=== PATIENT | male | born 1950 | race Caucasian/White ===

== ENCOUNTER 2016-11-16 09:03 | Outpatient (CLI) | payer MEDICARE, BC | END 2016-11-16 09:04 | disposition home or self-care (01) | DX: H35.60 Retinal hemorrhage, unspecified eye (principal); H53.2 Diplopia ==

== ENCOUNTER 2017-02-05 18:48 | Outpatient (CLI) | payer MEDICARE, BC | END 2017-02-05 18:49 | disposition home or self-care (01) | DX: R73.01 Impaired fasting glucose (principal); I10 Essential (primary) hypertension; E78.5 Hyperlipidemia, unspecified; M35.3 Polymyalgia rheumatica ==

== ENCOUNTER 2017-03-21 15:45 | Outpatient (CLI) | payer MEDICARE, BC | END 2017-03-21 15:46 | disposition home or self-care (01) | LOC: SC 15:45 | PROVIDERS: ATTEND Nurse Practitioner Family | DX: G47.33 Obstructive sleep apnea (adult) (pediatric) (principal) | CPT/HCPCS: 99213; G0463; 99212 ==

== ENCOUNTER 2017-05-21 10:30 | Outpatient (CLI) | payer MEDICARE, BC | END 2017-05-21 10:31 | disposition home or self-care (01) | LOC: SC 10:30 | PROVIDERS: ATTEND Nurse Practitioner Family | DX: G47.33 Obstructive sleep apnea (adult) (pediatric) (principal) | CPT/HCPCS: 99214; G0463; 99212 ==

== ENCOUNTER 2017-07-23 09:43 | Outpatient (CLI) | payer MEDICARE, BC | END 2017-07-23 09:44 | disposition home or self-care (01) | LOC: SC 09:43 | PROVIDERS: ATTEND Nurse Practitioner Family | DX: G47.33 Obstructive sleep apnea (adult) (pediatric) (principal) | CPT/HCPCS: 99214; G0463; 99212 ==

== ENCOUNTER 2017-08-21 16:02 | Outpatient (CLI) | payer MEDICARE, BC ==
[2017-08-21 12:49] LABS: BASOPHILS % (AUTO) 0.6 %; EOSINOPHILS # (AUTO) 0.3 10^3/uL (0.0-0.7); EOSINOPHILS % (AUTO) 3.8 %; HCT - HEMATOCRIT 44.5 % (42.0-52.0); HGB - HEMOGLOBIN 14.7 g/dL (14.0-18.0); LYMPHOCYTES # (AUTO) 1.9 10^3/uL (1.5-3.5); LYMPHOCYTES % (AUTO) 27.2 %; MEAN CORPUSCULAR HEMOGLOBIN 32.7 pg (27.0-31.0); MEAN PLATELET VOLUME 9.4 fL (7.4-11.4); MONOCYTES # (AUTO) 0.6 10^3/uL (0.0-1.0); MONOCYTES % (AUTO) 9.2 %; NEUTROPHILS % (AUTO) 59.2 %; RED BLOOD COUNT 4.49 10^6/uL (4.70-6.10); RED CELL DISTRIBUTION WIDTH 13.8 % (12.0-15.0); UNCORRECTED WHITE BLOOD COUNT 6.8 x10^3/uL; WHITE BLOOD COUNT 6.8 x10^3/uL (4.8-10.8)
[2017-08-21 13:00] LABS: HEMOGLOBIN A1C 0.71 g/dL
[2017-08-21 13:02] LABS: ALBUMIN/GLOBULIN RATIO 1.3 (1.0-2.2); BILIRUBIN,TOTAL 0.5 mg/dL (0.2-1.0); BUN - BLOOD UREA NITROGEN 25 mg/dL (6-20); CALCIUM 9.1 mg/dL (8.5-10.3); CARBON DIOXIDE - CO2 27 mmol/L (21-32); CHLORIDE 106 mmol/L (101-111); CHOL/HDL RATIO 3.2 (<5.0); CHOLESTEROL 174 mg/dL; CREATININE 1.1 mg/dL (0.6-1.2); GFR - MDRD 67 (>89); GLUCOSE 118 mg/dL (70-100); HDL CHOLESTEROL 55 mg/dL; LDL/HDL RATIO 1.7 (<3.6); POTASSIUM 4.5 mmol/L (3.5-5.0); SODIUM 140 mmol/L (135-145); TOTAL PROTEIN 7.1 g/dL (6.7-8.2); TRIGLYCERIDES 127 mg/dL; VLDL CHOLESTEROL 25 mg/dL
== END 2017-08-21 16:03 | disposition home or self-care (01) ==
LOC: LAB.WCP 16:02
PROVIDERS: ATTEND Family Medicine
DX: R73.01 Impaired fasting glucose (principal); E78.5 Hyperlipidemia, unspecified; I10 Essential (primary) hypertension; D69.6 Thrombocytopenia, unspecified
CPT/HCPCS: 36415; 80053; 80061; 83036; 85025

== ENCOUNTER 2018-02-28 08:00 | Outpatient (CLI) | payer MEDICARE, BC ==
[2018-02-28 13:15] LABS: BASOPHILS # (AUTO) 0.1 10^3/uL (0.0-0.1); BASOPHILS % (AUTO) 1.1 %; EOSINOPHILS # (AUTO) 0.2 10^3/uL (0.0-0.7); EOSINOPHILS % (AUTO) 3.8 %; HGB - HEMOGLOBIN 14.7 g/dL (14.0-18.0); LYMPHOCYTES # (AUTO) 1.7 10^3/uL (1.5-3.5); MEAN CORPUSCULAR HEMOGLOBIN 33.3 pg (27.0-31.0); MEAN CORPUSCULAR HGB CONC 33.3 g/dL (32.0-36.0); MEAN CORPUSCULAR VOLUME 100.1 fL (80.0-94.0); MEAN PLATELET VOLUME 9.8 fL (7.4-11.4); MONOCYTES # (AUTO) 0.6 10^3/uL (0.0-1.0); MONOCYTES % (AUTO) 11.2 %; NEUTROPHILS # (AUTO) 2.8 10^3/uL (1.5-6.6); NEUTROPHILS % (AUTO) 51.9 %; PLT - PLATELET COUNT 122 10^3/uL (130-450); RED BLOOD COUNT 4.42 10^6/uL (4.70-6.10); RED CELL DISTRIBUTION WIDTH 13.8 % (12.0-15.0); WHITE BLOOD COUNT 5.3 x10^3/uL (4.8-10.8)
[2018-02-28 13:22] LABS: ALBUMIN/GLOBULIN RATIO 1.3 (1.0-2.2); CALCIUM 9.4 mg/dL (8.5-10.3); CREATININE 1.1 mg/dL (0.6-1.2)
[2018-02-28 13:30] LABS: HB2 TOTAL 16.2 g/dL; HEMOGLOBIN A1C 0.69 g/dL
== END 2018-02-28 08:01 | disposition home or self-care (01) ==
LOC: LAB.WCP 08:00
PROVIDERS: ATTEND Family Medicine
DX: D69.6 Thrombocytopenia, unspecified (principal); R73.01 Impaired fasting glucose; S32.9XXD Fracture of unspecified parts of lumbosacral spine and pelvis, subsequent encounter for fracture with routine healing; E78.5 Hyperlipidemia, unspecified; I10 Essential (primary) hypertension
CPT/HCPCS: 36415; 80053; 83036; 85025

== ENCOUNTER 2018-08-31 12:38 | Outpatient (CLI) | payer MEDICARE, OTHER ==
[2018-08-31] MEDS ORDERED: GADOBUTROL 10 MMOL/10 ML VIAL ONE (12:54)
[2018-08-31] MEDS ORDERED: GADOBUTROL 10 MMOL/10 ML VIAL IVP ONE (13:30)
--- NOTE | 2018-08-31 23:21 | MRI Report ---
Reason: DEGENERATIVE DISC DISEASE, LUMBOSACRAL SPINE Procedure Date: 08/31/2018 Accession Number: [id number] / [id number] Procedure: MRI - Lumbar Spine W/WO CPT Code: FULL RESULT: EXAM: MRI LUMBAR SPINE WITHOUT AND WITH CONTRAST EXAM DATE: 08/31/2018 01:41 PM. CLINICAL HISTORY: Degenerative disk disease, lumbosacral spine. COMPARISONS: Radiographs 07/25/2018. TECHNIQUE: Multiplanar, multisequence T1-weighted and fluid-sensitive sequences of the lumbar spine from T11 to S1 before and after administration of intravenous contrast. Other: None. IV contrast: . FINDINGS: Neurologic Structures: The conus terminates at L1. The conus medullaris and cauda equina are unremarkable. Alignment: No scoliosis or spondylolisthesis. Bone Marrow: Five [id number] lumbar vertebral bodies are present. No gross fracture. Small Schmorl's nodes at multiple levels. Mild diskogenic edema at L3-L4 and to lesser extent L4-L5 and L5-S1. Disk Levels/Facets: Disk desiccation throughout with mild to moderate disk height loss, most prominent at L4-L5 and L5-S1. T10-T11: Sagittal images only. Minimal disk osteophyte complex. Mild facet hypertrophy. Mild bilateral neural foramen stenosis. T11-T12: Sagittal images only. Minimal disk osteophyte complex. Mild facet hypertrophy. Prominent epidural fat contributes to mild central canal stenosis. Mild bilateral neural foramen stenosis. T12-L1: Sagittal images only. Minimal disk osteophyte complex. Mild facet hypertrophy. No stenosis. L1-L2: Mild facet and ligamentum flavum hypertrophy. No stenosis. L2-L3: Small disk osteophyte complex extending into the neural foramen. Mild facet and ligamentum flavum hypertrophy. Prominent epidural fat contributes to mild central canal stenosis. Mild to moderate bilateral neural foramen stenosis. L3-L4: Small disk osteophyte complex extending into the neural foramen. Mild facet and ligamentum flavum hypertrophy. Prominent epidural fat contributes to mild central canal stenosis. Mild to moderate bilateral neural foramen stenosis. L4-L5: Small disk osteophyte complex extending into the neural foramen. Mild facet hypertrophy. Left hemilaminectomy. Minimal central canal stenosis. Hypertrophied left facet contacts the traversing left L5 nerve root. Mild to moderate bilateral neural foramen stenosis. L5-S1: Moderate broad-based disk osteophyte complex extending into the neural foramen. Mild to moderate facet and ligamentum flavum hypertrophy. Minimal central canal stenosis. Disk and left facet contact and may impinge the traversing left S1 nerve root. Severe right and moderate to severe left neural foramen stenosis. Spinal Canal: No enhancing masses within the spinal canal. No epidural abscess. Musculature: Mild to moderate fatty atrophy of the posterior paraspinous musculature. No focal edema or abnormal enhancement. Other: Cystic foci partially visualized at the bilateral kidneys. These are incompletely evaluated on the current exam but statistically likely represent simple cysts. IMPRESSION: 1. Mild to moderate degenerative disk and facet changes. 2. Disk osteophyte complexes, facet hypertrophy, and prominent epidural fat at L2-L3 and L3-L4 result in mild central canal stenosis. 3. Disk osteophyte complex and facet hypertrophy at L4-L5 result in minimal central canal stenosis. Hypertrophied left facet contacts the traversing left L5 nerve root. 4. Disk osteophyte complex and facet hypertrophy at L5-S1 result in minimal central canal stenosis. Disk and left facet contact and may impinge the traversing left S1 nerve root. 5. Varying degrees of neural foramen stenosis, most prominent at L5-S1 where there is severe right and moderate to severe left neural foramen stenosis. Comment: The following findings are so common in adults without low back pain that while we report their presence, they must be interpreted with caution and in the context of the clinical situation. (Reference Lorne et al, Spine 2001) Prevalence of findings in patients without low back pain: Disk degeneration (any evidence): 92% Disk desiccation/T2 signal loss: 83% Disk height loss: 56% Disk bulge: 64% Disk protrusion: 32% Annular tear/high intensity zone: 38% RADIA
== END 2018-08-31 12:39 | disposition home or self-care (01) ==
LOC: DI 12:38
PROVIDERS: ATTEND Family Medicine
DX: M51.37 Other intervertebral disc degeneration, lumbosacral region (principal); M51.36 Other intervertebral disc degeneration, lumbar region; M47.9 Spondylosis, unspecified; M48.061 Spinal stenosis, lumbar region without neurogenic claudication; M48.07 Spinal stenosis, lumbosacral region
CPT/HCPCS: 72158; A9585

== ENCOUNTER 2018-09-04 09:59 | Outpatient (CLI) | payer MEDICARE, OTHER | END 2018-09-04 10:00 | disposition home or self-care (01) | LOC: SC 09:59 | PROVIDERS: ATTEND Nurse Practitioner Family | DX: G47.33 Obstructive sleep apnea (adult) (pediatric) (principal) | CPT/HCPCS: 99214; G0463; 99212 ==

== ENCOUNTER 2018-09-18 08:00 | Outpatient (CLI) | payer MEDICARE, OTHER ==
[2018-09-18 19:59] LABS: BASOPHILS % (AUTO) 0.7 %; EOSINOPHILS # (AUTO) 0.2 10^3/uL (0.0-0.7); EOSINOPHILS % (AUTO) 2.3 %; HGB - HEMOGLOBIN 15.3 g/dL (14.0-18.0); LYMPHOCYTES # (AUTO) 1.3 10^3/uL (1.5-3.5); LYMPHOCYTES % (AUTO) 20.2 %; MEAN CORPUSCULAR HEMOGLOBIN 33.4 pg (27.0-31.0); MEAN CORPUSCULAR HGB CONC 32.9 g/dL (32.0-36.0); MEAN CORPUSCULAR VOLUME 101.7 fL (80.0-94.0); MEAN PLATELET VOLUME 9.2 fL (7.4-11.4); MONOCYTES # (AUTO) 0.5 10^3/uL (0.0-1.0); MONOCYTES % (AUTO) 7.3 %; NEUTROPHILS # (AUTO) 4.5 10^3/uL (1.5-6.6); NEUTROPHILS % (AUTO) 69.5 %; PLT - PLATELET COUNT 129 10^3/uL (130-450); RED BLOOD COUNT 4.57 10^6/uL (4.70-6.10); RED CELL DISTRIBUTION WIDTH 13.7 % (12.0-15.0); WHITE BLOOD COUNT 6.5 x10^3/uL (4.8-10.8)
[2018-09-18 20:35] LABS: ALBUMIN 4.2 g/dL (3.2-5.5); ALBUMIN/GLOBULIN RATIO 1.4 (1.0-2.2); ALKALINE PHOSPHATASE 44 IU/L (42-121); ALT ALANINE AMINOTRANSFERASE 48 IU/L (10-60); AST ASPARTATE AMINOTRANSFERASE 32 IU/L (10-42); BILIRUBIN,TOTAL 0.8 mg/dL (0.2-1.0); BUN - BLOOD UREA NITROGEN 24 mg/dL (6-20); CALCIUM 9.4 mg/dL (8.5-10.3); CARBON DIOXIDE - CO2 26 mmol/L (21-32); CHLORIDE 107 mmol/L (101-111); CHOL/HDL RATIO 2.9 (<5.0); CHOLESTEROL 175 mg/dL; CREATININE 1.1 mg/dL (0.6-1.2); GFR - MDRD 66 (>89); GLUCOSE 115 mg/dL (70-100); HDL CHOLESTEROL 60 mg/dL; LDL CHOLESTEROL,CALCULATED 97 mg/dL; LDL/HDL RATIO 1.6 (<3.6); SODIUM 141 mmol/L (135-145); TOTAL PROTEIN 7.1 g/dL (6.7-8.2); VLDL CHOLESTEROL 18 mg/dL
== END 2018-09-18 23:59 | disposition home or self-care (01) ==
LOC: LAB.WCP 08:00
PROVIDERS: ATTEND Family Medicine
DX: D75.89 Other specified diseases of blood and blood-forming organs (principal); R73.01 Impaired fasting glucose; M35.3 Polymyalgia rheumatica; E78.5 Hyperlipidemia, unspecified; I10 Essential (primary) hypertension
CPT/HCPCS: 36415; 80053; 80061; 83721; 85025; 85651

== ENCOUNTER 2018-11-07 10:17 | Outpatient (CLI) | payer MEDICARE, OTHER | END 2018-11-07 10:18 | disposition home or self-care (01) | LOC: SC 10:17 | PROVIDERS: ATTEND Nurse Practitioner Family | DX: G47.33 Obstructive sleep apnea (adult) (pediatric) (principal); R53.83 Other fatigue | CPT/HCPCS: 99214; G0463; 99212 ==

== ENCOUNTER 2018-12-19 12:40 | Outpatient (CLI) | payer MEDICARE, OTHER | END 2018-12-19 12:41 | disposition home or self-care (01) | LOC: SC 12:40 | PROVIDERS: ATTEND Nurse Practitioner Family | DX: G47.33 Obstructive sleep apnea (adult) (pediatric) (principal) | CPT/HCPCS: 99214; G0463; 99212 ==

== ENCOUNTER 2019-01-13 08:00 | Outpatient (CLI) | payer MEDICARE, OTHER ==
[2019-01-13 12:27] LABS: BASOPHILS % (AUTO) 0.8 %; EOSINOPHILS # (AUTO) 0.2 10^3/uL (0.0-0.7); HGB - HEMOGLOBIN 15.1 g/dL (14.0-18.0); LYMPHOCYTES # (AUTO) 1.7 10^3/uL (1.5-3.5); LYMPHOCYTES % (AUTO) 27.6 %; MEAN CORPUSCULAR HEMOGLOBIN 32.9 pg (27.0-31.0); MEAN CORPUSCULAR HGB CONC 33.1 g/dL (32.0-36.0); MEAN CORPUSCULAR VOLUME 99.5 fL (80.0-94.0); MEAN PLATELET VOLUME 9.7 fL (7.4-11.4); MONOCYTES # (AUTO) 0.6 10^3/uL (0.0-1.0); MONOCYTES % (AUTO) 9.2 %; NEUTROPHILS # (AUTO) 3.5 10^3/uL (1.5-6.6); NEUTROPHILS % (AUTO) 58.4 %; PLT - PLATELET COUNT 136 10^3/uL (130-450); RED BLOOD COUNT 4.58 10^6/uL (4.70-6.10); RED CELL DISTRIBUTION WIDTH 13.7 % (12.0-15.0)
[2019-01-13 13:17] LABS: CALCIUM 9.4 mg/dL (8.5-10.3)
== END 2019-01-13 23:59 | disposition home or self-care (01) ==
LOC: LAB.WCP 08:00
PROVIDERS: ATTEND Neurological Surgery
DX: M54.16 Radiculopathy, lumbar region (principal)
CPT/HCPCS: 36415; 80048; 85025

== ENCOUNTER 2019-01-15 09:27 | Outpatient (CLI) | payer MEDICARE, OTHER | END 2019-01-15 09:28 | disposition home or self-care (01) | LOC: DI 09:27 | PROVIDERS: ATTEND Family Medicine | DX: R01.1 Cardiac murmur, unspecified (principal); I35.0 Nonrheumatic aortic (valve) stenosis; I51.7 Cardiomegaly | CPT/HCPCS: 93306 ==

== ENCOUNTER 2019-02-20 11:09 | Outpatient (CLI) | payer MEDICARE, OTHER | END 2019-02-20 11:10 | disposition home or self-care (01) | LOC: SC 11:09 | PROVIDERS: ATTEND Nurse Practitioner Family | DX: G47.33 Obstructive sleep apnea (adult) (pediatric) (principal) | CPT/HCPCS: 99215; G0463; 99212 ==

== ENCOUNTER 2019-07-01 07:10 | Outpatient (CLI) | payer MEDICARE, OTHER ==
[2019-07-01 12:04] LABS: BASOPHILS # (AUTO) 0.1 10^3/uL (0.0-0.1); BASOPHILS % (AUTO) 0.9 %; EOSINOPHILS # (AUTO) 0.2 10^3/uL (0.0-0.7); EOSINOPHILS % (AUTO) 4.2 %; HGB - HEMOGLOBIN 14.9 g/dL (14.0-18.0); LYMPHOCYTES # (AUTO) 1.7 10^3/uL (1.5-3.5); LYMPHOCYTES % (AUTO) 30.2 %; MEAN CORPUSCULAR HEMOGLOBIN 33.6 pg (27.0-31.0); MEAN CORPUSCULAR HGB CONC 32.4 g/dL (32.0-36.0); MEAN CORPUSCULAR VOLUME 103.6 fL (80.0-94.0); MONOCYTES # (AUTO) 0.5 10^3/uL (0.0-1.0); MONOCYTES % (AUTO) 9.4 %; NEUTROPHILS # (AUTO) 3.1 10^3/uL (1.5-6.6); NEUTROPHILS % (AUTO) 55.1 %; PLT - PLATELET COUNT 103 10^3/uL (130-450); RED BLOOD COUNT 4.44 10^6/uL (4.70-6.10); RED CELL DISTRIBUTION WIDTH 13.6 % (12.0-15.0); WHITE BLOOD COUNT 5.5 x10^3/uL (4.8-10.8)
[2019-07-01 12:37] LABS: ALBUMIN 4.3 g/dL (3.2-5.5); ALBUMIN/GLOBULIN RATIO 1.5 (1.0-2.2); ALKALINE PHOSPHATASE 42 IU/L (42-121); ALT ALANINE AMINOTRANSFERASE 49 IU/L (10-60); AST ASPARTATE AMINOTRANSFERASE 32 IU/L (10-42); BILIRUBIN,TOTAL 0.5 mg/dL (0.2-1.0); BUN - BLOOD UREA NITROGEN 28 mg/dL (6-20); CALCIUM 9.3 mg/dL (8.5-10.3); CARBON DIOXIDE - CO2 30 mmol/L (21-32); CHLORIDE 107 mmol/L (101-111); CHOL/HDL RATIO 3.1 (<5.0); CHOLESTEROL 171 mg/dL; CREATININE 1.3 mg/dL (0.6-1.2); GFR - MDRD 55 (>89); GLUCOSE 114 mg/dL (70-100); HDL CHOLESTEROL 56 mg/dL; LDL CHOLESTEROL,CALCULATED 94 mg/dL; LDL/HDL RATIO 1.7 (<3.6); SODIUM 142 mmol/L (135-145); TOTAL PROTEIN 7.1 g/dL (6.7-8.2); VLDL CHOLESTEROL 21 mg/dL
[2019-07-01 12:45] LABS: HB2 TOTAL 15.3 g/dL; HEMOGLOBIN A1C 0.63 g/dL; HEMOGLOBIN A1C % 5.9 % (4.6-6.2)
== END 2019-07-01 23:59 | disposition home or self-care (01) ==
LOC: LAB.WCP 07:10
PROVIDERS: ATTEND Family Medicine
DX: E78.5 Hyperlipidemia, unspecified (principal); I35.0 Nonrheumatic aortic (valve) stenosis; G47.33 Obstructive sleep apnea (adult) (pediatric); R73.9 Hyperglycemia, unspecified
CPT/HCPCS: 36415; 80053; 80061; 83036; 83721; 84443; 85025

== ENCOUNTER 2019-07-28 09:32 | Outpatient (CLI) | payer MEDICARE, OTHER | END 2019-07-28 09:33 | disposition home or self-care (01) | LOC: LC 09:32 | PROVIDERS: ATTEND Internal Medicine Cardiovascular Disease | DX: R07.89 Other chest pain (principal) | CPT/HCPCS: 93005 ==

== ENCOUNTER 2019-09-22 08:00 | Outpatient (CLI) | payer MEDICARE, OTHER ==
[2019-09-22 12:43] LABS: BASOPHILS # (AUTO) 0.1 10^3/uL (0.0-0.1); BASOPHILS % (AUTO) 0.9 %; EOSINOPHILS # (AUTO) 0.3 10^3/uL (0.0-0.7); EOSINOPHILS % (AUTO) 4.1 %; HGB - HEMOGLOBIN 14.7 g/dL (14.0-18.0); LYMPHOCYTES # (AUTO) 1.7 10^3/uL (1.5-3.5); LYMPHOCYTES % (AUTO) 26.3 %; MEAN CORPUSCULAR HEMOGLOBIN 31.3 pg (27.0-31.0); MEAN CORPUSCULAR HGB CONC 30.4 g/dL (32.0-36.0); MEAN PLATELET VOLUME 10.9 fL (7.4-11.4); MONOCYTES # (AUTO) 0.6 10^3/uL (0.0-1.0); MONOCYTES % (AUTO) 9.6 %; NEUTROPHILS # (AUTO) 3.7 10^3/uL (1.5-6.6); NEUTROPHILS % (AUTO) 58.9 %; PLT - PLATELET COUNT 117 10^3/uL (130-450); RED BLOOD COUNT 4.69 10^6/uL (4.70-6.10); RED CELL DISTRIBUTION WIDTH 12.9 % (12.0-15.0); WHITE BLOOD COUNT 6.4 x10^3/uL (4.8-10.8)
[2019-09-22 13:28] LABS: ALBUMIN 4.2 g/dL (3.2-5.5); ALBUMIN/GLOBULIN RATIO 1.4 (1.0-2.2); ALKALINE PHOSPHATASE 44 IU/L (42-121); ALT ALANINE AMINOTRANSFERASE 37 IU/L (10-60); AST ASPARTATE AMINOTRANSFERASE 25 IU/L (10-42); BILIRUBIN,TOTAL 0.7 mg/dL (0.2-1.0); BUN - BLOOD UREA NITROGEN 35 mg/dL (6-20); CALCIUM 9.3 mg/dL (8.5-10.3); CARBON DIOXIDE - CO2 29 mmol/L (21-32); CHLORIDE 108 mmol/L (101-111); CHOL/HDL RATIO 2.7 (<5.0); CHOLESTEROL 155 mg/dL; CREATININE 1.3 mg/dL (0.6-1.2); GFR - MDRD 55 (>89); GLUCOSE 116 mg/dL (70-100); HDL CHOLESTEROL 58 mg/dL; LDL CHOLESTEROL,CALCULATED 83 mg/dL; LDL/HDL RATIO 1.4 (<3.6); SODIUM 143 mmol/L (135-145); TOTAL PROTEIN 7.3 g/dL (6.7-8.2); VLDL CHOLESTEROL 14 mg/dL
== END 2019-09-22 23:59 | disposition home or self-care (01) ==
LOC: LAB.WCP 08:00
PROVIDERS: ATTEND Family Medicine
DX: I25.10 Atherosclerotic heart disease of native coronary artery without angina pectoris (principal); I35.0 Nonrheumatic aortic (valve) stenosis; I10 Essential (primary) hypertension; D69.6 Thrombocytopenia, unspecified
CPT/HCPCS: 36415; 80053; 80061; 83721; 85025

== ENCOUNTER 2019-10-06 16:06 | Outpatient (CLI) | payer MEDICARE, OTHER ==
[2019-10-06 17:49] VITALS: BP 110/70
--- NOTE | 2019-10-06 17:49 | SLEEP CARE CONSULTATION ---
Information from patient questionnaire entered by Andree Sawyer. I have reviewed and concur with the information entered by Andree Sawyer. This document represents the service I personally performed and the decisions made by me, Sandra Krause, RN, MSN, SPECIAL EDUCATION SECRETARY. History of Present Illness Previous diagnosis: Severe, Obstructive Sleep Apnea-Hypopnea Syndrome AHI: 48.3 Reason for follow up: six month Equipment type: CPAP Equipment obtained from: [facility] Mask style: Nasal (Dreamwear) Mask brand: Respironics Backup mask available: Yes Last cushion change: 2 weeks ago HPI additional information: Patient called in July as noted increased kicking of legs in sleep and covers pulled off. Compliance report showed elevated slight residual AHI and auto CPAP pressure increased to [id number]. He was also advised to check for iron deficiency since just had surgery to see if a possible cause of leg movements. He had his blood drawn and no iron deficiency. The leg movements decreased with change in CPAP pressure. CPAP Compliance Data - Data Reviewed with Patient Average duration of nightly device use: 5.25 Compliance rate %: 84.4 (180 days) Current pressure setting (cmH2O): 14-17 Humidity settin Heated hose settin Average residual AHI: 7.2 (last 30 days with new pressure AHI is 4.3) Central apnea: 1.0 Obstructive apnea: 2.4 Hypopnea: 3.8 Average large leak: 52 min 1 sec Subjective Patient concerns: reports: mask leak noise (noted by spouse ), other (falling asleep in recliner while watching TV , did not try recliner alarm / mask dislodging in most nights). denies: aerophagia, mask discomfort, air blowing in eyes, condensation in mask/hose, nasal congestion, dry mouth, nose, throat, epistaxis Observed to snore while using device: No Current pressure setting perceived as: comfortable On therapy, patient: reports: sleeping better, awakening more refreshed, being more awake and alert during the day, more rested overall. denies: drowsiness while driving Initial [place] Sleepiness Scale score: 20 Current [place] Sleepiness Scale score: 6 Allergies and Home Medications Known drug allergies: No Home medication list reviewed: Yes (statin changed and doubled dose to reduce LDL / no other changes) Review of Systems Review of systems same as previous: No (aortic valve replacement in March and medications modified) Physical Exam Blood Pressure: 110/70 Cuff size: long Heart Rate: 60 O2 Saturation: 96 Height: 5 ft 9 in Weight: 241 lb 3.2 oz Weight change since last visit: lost 27 pounds Body Mass Index: 35.6 BMI Classification: Obesity Class 2 Impression and Plan 1. Obstructive Sleep Apnea-Hypopnea Syndrome, severe, with good treatment compliance and good apnea control. The elevated residual AHI reduced to normal range with pressure adjustment. His leg movements also decreased and no longer waking with covers off of legs. On CPAP therapy, the patient has better sleep quality and is more rested overall.To reduce mask dislodging in sleep most nights and associated mask leaks, I ordered a headgear adaptor. If unable to obtain the adaptor or if continued mask leaks, a mask refitting was also ordered. I showed him other Dreamwear nasal mask styles and the Wisp seemed the most appealing. He has tried nasal pillows and were uncomfortable. To reduce falling asleep in recliner, he is encouraged to try some sort of alarm for his bedtime either on phone or at recliner to get more sleep with CPAP. The goal is a minimum of 7 hours sleep and to use CPAP with all sleep. Patient has lost 27 pounds since last seen for overall health and is feeling better overall. He has also increased his activity and diet intake. He is considering losing more weight but no goal at this time. I discussed how significant weight loss could reduce his apnea and CPAP pressure with rationale discussed. Symptoms to report for further pressure change discussed. Patient's apnea severity and rationale for treatment to reduce apnea, improve sleep quality and reduce cardiovascular and cerebrovascular events was reviewed. I also reviewed the benefit of consistent device use of CPAP for hypertension, gastric reflux. He no longer requires reflux medication. * Continue CPAP pressure at 14-17 cmH2O * headgear adaptor * mask refitting if continued mask leaks * Recliner alarm * Notify me if snoring with mask or feeling that the pressure is too much or too little * Attempt to lose weight * Call this office if any problems using CPAP * Return for follow up in 1 year , or sooner if concerns arise Time Spent with Patient (minutes): 30 I spent 100% of this visit face to face with the patient with greater than 50% of this was spent time counseling the patient and coordination of care.
== END 2019-10-06 16:07 | disposition home or self-care (01) ==
LOC: SC 16:06
PROVIDERS: ATTEND Nurse Practitioner Family
DX: G47.33 Obstructive sleep apnea (adult) (pediatric) (principal); E66.9 Obesity, unspecified; Z68.35 Body mass index [BMI] 35.0-35.9, adult
CPT/HCPCS: 99214; G0463; 99212

== ENCOUNTER 2020-03-22 10:04 | Outpatient (CLI) | payer MEDICARE, OTHER ==
[2020-03-22 12:31] LABS: BASOPHILS % (AUTO) 0.8 %; EOSINOPHILS # (AUTO) 0.3 10^3/uL (0.0-0.7); EOSINOPHILS % (AUTO) 6.2 %; HGB - HEMOGLOBIN 15.3 g/dL (14.0-18.0); LYMPHOCYTES # (AUTO) 1.5 10^3/uL (1.5-3.5); MEAN CORPUSCULAR HEMOGLOBIN 34.2 pg (27.0-31.0); MEAN CORPUSCULAR HGB CONC 33.6 g/dL (32.0-36.0); MEAN CORPUSCULAR VOLUME 101.8 fL (80.0-94.0); MEAN PLATELET VOLUME 10.7 fL (7.4-11.4); MONOCYTES # (AUTO) 0.5 10^3/uL (0.0-1.0); NEUTROPHILS # (AUTO) 2.7 10^3/uL (1.5-6.6); NEUTROPHILS % (AUTO) 53.8 %; PLT - PLATELET COUNT 111 10^3/uL (130-450); RED BLOOD COUNT 4.48 10^6/uL (4.70-6.10); RED CELL DISTRIBUTION WIDTH 13.1 % (12.0-15.0)
[2020-03-22 13:07] LABS: ALBUMIN/GLOBULIN RATIO 1.3 (1.0-2.2); ALKALINE PHOSPHATASE 43 IU/L (42-121); ALT ALANINE AMINOTRANSFERASE 44 IU/L (10-60); AST ASPARTATE AMINOTRANSFERASE 31 IU/L (10-42); BILIRUBIN,TOTAL 0.8 mg/dL (0.2-1.0); BUN - BLOOD UREA NITROGEN 27 mg/dL (6-20); CALCIUM 9.1 mg/dL (8.5-10.3); CARBON DIOXIDE - CO2 27 mmol/L (21-32); CHLORIDE 109 mmol/L (101-111); CHOL/HDL RATIO 2.9 (<5.0); CHOLESTEROL 178 mg/dL; CREATININE 1.2 mg/dL (0.6-1.2); GLUCOSE 111 mg/dL (70-100); HDL CHOLESTEROL 62 mg/dL; LDL CHOLESTEROL,CALCULATED 101 mg/dL; LDL/HDL RATIO 1.6 (<3.6); SODIUM 141 mmol/L (135-145); TOTAL PROTEIN 7.1 g/dL (6.7-8.2); VLDL CHOLESTEROL 15 mg/dL
== END 2020-03-22 23:59 | disposition home or self-care (01) ==
LOC: LAB.WCP 10:04
PROVIDERS: ATTEND Family Medicine
DX: I10 Essential (primary) hypertension (principal); I25.10 Atherosclerotic heart disease of native coronary artery without angina pectoris; I35.0 Nonrheumatic aortic (valve) stenosis; E78.5 Hyperlipidemia, unspecified; D69.6 Thrombocytopenia, unspecified
CPT/HCPCS: 36415; 80053; 80061; 83721; 84443; 85025

== ENCOUNTER → 2020-07-21 | Outpatient (CLI) | payer MEDICARE, OTHER ==
[2020-07-21 12:25] LABS: BASOPHILS # (AUTO) 0.1 10^3/uL (0.0-0.1); BASOPHILS % (AUTO) 0.5 %; EOSINOPHILS # (AUTO) 0.2 10^3/uL (0.0-0.7); EOSINOPHILS % (AUTO) 2.6 %; HGB - HEMOGLOBIN 14.9 g/dL (14.0-18.0); LYMPHOCYTES # (AUTO) 1.4 10^3/uL (1.5-3.5); LYMPHOCYTES % (AUTO) 15.3 %; MEAN CORPUSCULAR VOLUME 103.1 fL (80.0-94.0); MEAN PLATELET VOLUME 10.7 fL (7.4-11.4); MONOCYTES # (AUTO) 0.9 10^3/uL (0.0-1.0); MONOCYTES % (AUTO) 9.3 %; NEUTROPHILS # (AUTO) 6.6 10^3/uL (1.5-6.6); PLT - PLATELET COUNT 131 10^3/uL (130-450); RED BLOOD COUNT 4.52 10^6/uL (4.70-6.10); RED CELL DISTRIBUTION WIDTH 13.3 % (12.0-15.0); WHITE BLOOD COUNT 9.1 x10^3/uL (4.8-10.8)
[2020-07-21 12:43] LABS: ALBUMIN 4.5 g/dL (3.2-5.5); ALBUMIN/GLOBULIN RATIO 1.4 (1.0-2.2); ALKALINE PHOSPHATASE 39 IU/L (42-121); ALT ALANINE AMINOTRANSFERASE 41 IU/L (10-60); AST ASPARTATE AMINOTRANSFERASE 30 IU/L (10-42); BILIRUBIN,TOTAL 0.7 mg/dL (0.2-1.0); BUN - BLOOD UREA NITROGEN 34 mg/dL (6-20); CALCIUM 10.2 mg/dL (8.5-10.3); CARBON DIOXIDE - CO2 28 mmol/L (21-32); CHLORIDE 105 mmol/L (101-111); CHOL/HDL RATIO 2.6 (<5.0); CHOLESTEROL 171 mg/dL; CREATININE 1.5 mg/dL (0.6-1.2); GLUCOSE 127 mg/dL (70-100); HDL CHOLESTEROL 66 mg/dL; LDL CHOLESTEROL,CALCULATED 88 mg/dL; LDL/HDL RATIO 1.3 (<3.6); SODIUM 142 mmol/L (135-145); TOTAL PROTEIN 7.7 g/dL (6.7-8.2); VLDL CHOLESTEROL 17 mg/dL
[2020-07-21 12:55] LABS: CREATININE,URINE 200.7 mg/dL; MICROALBUM/CREATININE RATIO,UR 9.5 ug/mg (<30.0); MICROALBUMIN,URINE 1.9 mg/dL (0-300.0)
[2020-07-21 13:16] LABS: HEMOGLOBIN A1c% 6.2 % (4.27-6.07)
== END ==
LOC: LAB.WCP 08:00
PROVIDERS: ATTEND Family Medicine
DX: I12.9 Hypertensive chronic kidney disease with stage 1 through stage 4 chronic kidney disease, or unspecified chronic kidney disease (principal); N18.9 Chronic kidney disease, unspecified; I25.10 Atherosclerotic heart disease of native coronary artery without angina pectoris; I35.0 Nonrheumatic aortic (valve) stenosis; R73.01 Impaired fasting glucose; D69.6 Thrombocytopenia, unspecified
CPT/HCPCS: 36415; 80053; 80061; 82043; 82570; 83036; 83721; 84443; 85025

== ENCOUNTER 2021-01-03 07:00 | Outpatient (CLI) | payer MEDICARE, OTHER | END 2021-01-03 23:59 | disposition home or self-care (01) | LOC: LAB.N 07:00 | PROVIDERS: ATTEND Physician Assistant Medical | DX: M10.071 Idiopathic gout, right ankle and foot (principal) | CPT/HCPCS: 36415; 84550 ==

== ENCOUNTER 2021-01-06 08:00 | Outpatient (CLI) | payer MEDICARE, OTHER ==
[2021-01-06 08:31] VITALS: BP 133/79
--- NOTE | 2021-01-06 08:31 | SLEEP CARE CONSULTATION ---
Information from patient questionnaire entered by Andree Sawyer. I have reviewed and concur with the information entered by Andree Sawyer. This document represents the service I personally performed and the decisions made by , Yaa Gunn ARNP. History of Present Illness Service Date and Time: 01/06/2021 0800 Previous diagnosis: Severe, Obstructive Sleep Apnea-Hypopnea Syndrome AHI: 48.3 (in 2014) Reason for follow up: annual (last seen 09/2019) Equipment type: CPAP Equipment obtained from: [facility] (getting supplies as needed) Mask style: Nasal (Wisp) Mask brand: Respironics (Dreamwear) Backup mask available: Yes (old mask) Last cushion change: 3 months Prior sleep studies: Yes Year and Where: 2014 - [facility] Type of Sleep Study: Polysomnography HPI additional information: MAY LUGO was diagnosed to have severe, AHI 48.3, obstructive sleep apnea-hypopnea syndrome and returned today for CPAP therapy annual follow-up. CPAP Compliance Data - Data Reviewed with Patient Average duration of nightly device use: 5 hr 14 in Compliance rate %: 85.6 (180 days) Current pressure setting (cmH2O): 14-17 Humidity settin Heated hose settin Average residual AHI: 9.4 Average large leak: 2 hrs 21 min Subjective Patient concerns: denies: aerophagia, mask discomfort, air blowing in eyes, mask leak noise (better with changing to Wisp), condensation in mask/hose, nasal congestion, dry mouth, nose, throat, epistaxis, other Observed to snore while using device: No Current pressure setting perceived as: comfortable On therapy, patient: reports: sleeping better, awakening more refreshed, being more awake and alert during the day, more rested overall. denies: drowsiness while driving Initial [place] Sleepiness Scale score: 20 (in 2014) Current [place] Sleepiness Scale score: 10 Allergies and Home Medications Home medication list reviewed: Yes (prednisone for 5 days, on day 4) Review of Systems Review of systems same as previous: No (gout, right ankle) Physical Exam Blood Pressure: 133/79 Cuff size: wrist Heart Rate: 70 O2 Saturation: 91 Height: 5 ft 9 in Weight: 257 lb Body Mass Index: 37.9 BMI Classification: Obese Impression and Plan 1. Obstructive Sleep Apnea-Hypopnea Syndrome, severe, with good treatment compliance and fair apnea control with elevated residual AHI. On CPAP therapy, the patient has better sleep quality and is more rested overall. He has an average large leak over 2 hours. He has had some mask leaks that have improved in the last 3 months with change to a Dreamwear Wisp mask. His elevated residual AHI could be due to the large mask leaks. The patients CPAP is over 5 years old and of reasonable use. Thus, the CPAP will be updated. A DWO prescription will be made. Compliance guidelines for new device and follow up discussed. I will recheck his AHI at his follow up appointment and adjust as needed. Patient's apnea severity and rationale for treatment to reduce apnea, improve sleep quality and reduce cardiovascular and cerebrovascular events was reviewed. I also reviewed the benefit of consistent device use of CPAP for hypertension and gastric reflux. * Continue auto CPAP pressure at 14-17 cmH2O * Update CPAP machine * Notify me if snoring with mask or feeling that the pressure is too much or too little * Attempt to lose weight * Call this office if any problems using CPAP * Return for follow up one month after obtaining new machine, or sooner if concerns arise Counseling Topics: Spare mask, Weight loss health impact Visit Type: In Office Time Spent with Patient (minutes): 21 Provider Statement: I spent 100% of the Face to Face Visit with the patient with greater than 50% spent counseling the patient and coordination of care.
== END 2021-01-06 08:01 | disposition home or self-care (01) ==
LOC: SC 08:00
PROVIDERS: ATTEND Nurse Practitioner Family
DX: G47.33 Obstructive sleep apnea (adult) (pediatric) (principal); E66.9 Obesity, unspecified; Z68.37 Body mass index [BMI] 37.0-37.9, adult
CPT/HCPCS: 99213; G0463; 99212

== ENCOUNTER 2021-01-10 14:21 | Outpatient (CLI) | payer MEDICARE, OTHER ==
[2021-01-10 18:41] LABS: BASOPHILS % (AUTO) 0.5 %; EOSINOPHILS # (AUTO) 0.2 10^3/uL (0.0-0.7); HCT - HEMATOCRIT 47.3 % (42.0-52.0); HGB - HEMOGLOBIN 15.2 g/dL (14.0-18.0); LYMPHOCYTES # (AUTO) 2.2 10^3/uL (1.5-3.5); LYMPHOCYTES % (AUTO) 27.7 %; MEAN CORPUSCULAR HEMOGLOBIN 33.1 pg (27.0-31.0); MEAN CORPUSCULAR HGB CONC 32.1 g/dL (32.0-36.0); MEAN CORPUSCULAR VOLUME 103.1 fL (80.0-94.0); MEAN PLATELET VOLUME 10.5 fL (7.4-11.4); MONOCYTES # (AUTO) 0.8 10^3/uL (0.0-1.0); MONOCYTES % (AUTO) 9.5 %; NEUTROPHILS # (AUTO) 4.7 10^3/uL (1.5-6.6); NEUTROPHILS % (AUTO) 58.9 %; PLT - PLATELET COUNT 128 10^3/uL (130-450); RED BLOOD COUNT 4.59 10^6/uL (4.70-6.10); RED CELL DISTRIBUTION WIDTH 13.2 % (12.0-15.0); WHITE BLOOD COUNT 7.9 x10^3/uL (4.8-10.8)
[2021-01-10 19:09] LABS: ALBUMIN/GLOBULIN RATIO 1.3 (1.0-2.2); ALKALINE PHOSPHATASE 36 IU/L (42-121); ALT ALANINE AMINOTRANSFERASE 63 IU/L (10-60); AST ASPARTATE AMINOTRANSFERASE 32 IU/L (10-42); BILIRUBIN,TOTAL 0.7 mg/dL (0.2-1.0); BUN - BLOOD UREA NITROGEN 31 mg/dL (6-20); CALCIUM 9.2 mg/dL (8.5-10.3); CARBON DIOXIDE - CO2 29 mmol/L (21-32); CHLORIDE 103 mmol/L (101-111); CHOL/HDL RATIO 2.6 (<5.0); CHOLESTEROL 177 mg/dL; CREATININE 1.4 mg/dL (0.6-1.2); GFR - MDRD 50 (>89); GLUCOSE 165 mg/dL (70-100); HDL CHOLESTEROL 68 mg/dL; LDL CHOLESTEROL,CALCULATED 73 mg/dL; LDL/HDL RATIO 1.1 (<3.6); POTASSIUM 3.9 mmol/L (3.5-5.0); SODIUM 140 mmol/L (135-145); TRIGLYCERIDES 179 mg/dL; URIC ACID 6.4 mg/dL (2.6-7.2); VLDL CHOLESTEROL 36 mg/dL
[2021-01-10 19:47] LABS: CRP - C-REACTIVE PROTEIN < 1.0 mg/dL (0-1.0)
[2021-01-10 20:21] LABS: ESTIMATED AVERAGE GLUCOSE 143 mg/dL (70-100); HEMOGLOBIN A1c% 6.6 % (4.27-6.07)
== END 2021-01-10 14:22 | disposition home or self-care (01) ==
LOC: LAB.N 14:21
PROVIDERS: ATTEND Family Medicine
DX: N18.9 Chronic kidney disease, unspecified (principal); Z12.5 Encounter for screening for malignant neoplasm of prostate; E78.5 Hyperlipidemia, unspecified; R73.01 Impaired fasting glucose; M10.071 Idiopathic gout, right ankle and foot; M35.3 Polymyalgia rheumatica
CPT/HCPCS: 36415; 80053; 80061; 83036; 83721; 84153; 84550; 85025; 85651; 86140

== ENCOUNTER 2021-01-10 14:30 | Outpatient (CLI) | payer MEDICARE, OTHER ==
--- NOTE | 2021-01-10 15:44 | XRAY Report ---
PROCEDURE: Ankle 3 View RT INDICATIONS: R ANKLE PX TECHNIQUE: 3 views of the ankle were acquired. COMPARISON: None FINDINGS: Bones: No fractures or dislocations. Ankle mortise is normally aligned. No suspicious bony lesions . Soft tissues: No tibiotalar joint effusion. Achilles tendon appears normal. IMPRESSION: No acute fracture. No osseous lesion. If symptoms and/or clinical suspicion for patholog y continue, further assessment with repeat plain films, or advanced imaging (e.g., CT, MRI, or bone s can) is recommended for further assessment. Reviewed by: Neto Narayanan MD on 01/10/2021 3:42 PM PDT Approved by: Neto Narayanan MD on 01/10/2021 3:42 PM PDT Station ID: [id number]
== END 2021-01-10 14:31 | disposition home or self-care (01) ==
LOC: DI.N 14:30
PROVIDERS: ATTEND Family Medicine
DX: M25.571 Pain in right ankle and joints of right foot (principal); M10.071 Idiopathic gout, right ankle and foot; M35.3 Polymyalgia rheumatica; N18.9 Chronic kidney disease, unspecified; Z12.5 Encounter for screening for malignant neoplasm of prostate; E78.5 Hyperlipidemia, unspecified; R73.01 Impaired fasting glucose
CPT/HCPCS: 36415; 73610; 80053; 80061; 83036; 84550; 85025; 85651; 86140; G0103; 83721; 84153

== ENCOUNTER 2021-02-09 08:00 | Outpatient (CLI) | payer MEDICARE, OTHER ==
[2021-02-10 10:19] LABS: CLARITY,URINE CLEAR (CLEAR); LEUKOCYTE ESTERASE, URINE NEGATIVE (NEGATIVE); NITRITE,URINE NEGATIVE (NEGATIVE)
[2021-02-10 10:20] LABS: BACTERIA,URINE Rare /HPF (None Seen); BILIRUBIN,URINE NEGATIVE (NEGATIVE); GLUCOSE, URINE (UA) NEGATIVE (NEGATIVE); KETONES,URINE (UA) NEGATIVE (NEGATIVE); OCCULT BLOOD,URINE NEGATIVE (NEGATIVE); PROTEIN,URINE NEGATIVE (NEGATIVE); RBC,URINE 0-5 /HPF (0-5); SQUAMOUS EPITHELIAL CELL,UR NONE SEEN (<= Few); UROBILINOGEN,URINE 0.2 (NORMAL) E.U./dL (NORMAL); WBC,URINE 0-3 /HPF (0-3)
== END 2021-02-09 23:59 | disposition home or self-care (01) ==
LOC: LAB.WCP 08:00
PROVIDERS: ATTEND Family Medicine
DX: R30.0 Dysuria (principal)
CPT/HCPCS: 81001; 87086

== ENCOUNTER 2021-03-14 06:27 | Day surgery (SDC) | payer MEDICARE, OTHER ==
[2021-03-14] MEDS ORDERED: LACTATED RINGERS 1,000 ML IV ONE (06:32)
[2021-03-14] MEDS ORDERED: MIDAZOLAM 2 MG/2 ML VIAL ONE (07:13)
[2021-03-14] MEDS ORDERED: fentaNYL 100 MCG/2 ML VIAL ONE (07:13)
[2021-03-14] MEDS ORDERED: PROPOFOL 200 MG/20 ML VIAL IVP ONE (07:13)
--- NOTE | 2021-03-14 07:17 | ANESTHESIA ---
Pre-Anesthesia VS, & Labs - Diagnosis screening colonoscopy - Procedure colonoscopy Vital Signs: Temp Pulse Resp BP Pulse Ox 36 C L 77 18 130/77 95 03/14/21 06:33 03/14/21 06:33 03/14/21 06:33 03/14/21 06:33 03/14/21 06:33 Height: 5 ft 9 in Weight (kg): 115 kg Body Mass Index: 37.4 BMI Classification: Obese - NPO >8 hours - Lab Results Current Lab Results: Laboratory Tests 03/14/21 06:47: POC Whole Bld Glucose 121 H Lab results reviewed: Yes Home Medications and Allergies Home Medications: Ambulatory Orders Aspirin [Aspirin EC] 81 mg PO DAILY 03/11/21 Losartan [Cozaar] 100 mg PO DAILY 03/11/21 Metoprolol Tartrate [Lopressor] 50 mg PO BID 03/11/21 Rosuvastatin Calcium [Crestor] 40 mg PO DAILY 03/11/21 Tamsulosin HCl [Flomax] 0.4 mg PO DAILY 03/11/21 Aspirin [Aspirin EC] 81 mg PO DAILY 03/11/21 Losartan [Cozaar] 100 mg PO DAILY 03/11/21 Metoprolol Tartrate [Lopressor] 50 mg PO BID 03/11/21 Rosuvastatin Calcium [Crestor] 40 mg PO DAILY 03/11/21 Tamsulosin HCl [Flomax] 0.4 mg PO DAILY 03/11/21 Allergies/Adverse Reactions: Allergies Allergy/AdvReac Type Severity Reaction Status Date / Time No Known Drug Allergies Allergy Verified 03/11/21 12:29 Anes History & Medical History - Anesthetic History Anesthesia Complications: reports: No previous complications Family history of Anesthesia Complications: Denies Family history of Malignant Hyperthermia: Denies - Medical History Cardiovascular: reports: Hypertension, High cholesterol, Valve disorder (AVR 2019), Other Pulmonary: reports: CPAP use Gastrointestinal: reports: None Urinary: reports: Benign prostate hypertrophy Musculoskeletal: reports: None Endocrine/Autoimmune: reports: None Skin: reports: Other - Surgical History General: reports: Cholecystectomy Eyes Ears Nose Throat (EENT): reports: Tonsil/Adenoidectomy Cardiothoracic: reports: Valve replacement Orthopedic: reports: Spine surgery, Other Exam General: Alert, Oriented x3, Cooperative Dental: WNL Mouth Openin Fingerbreadth Neck Mobility: Normal Mallampati classification: II Thyromental Distance: 4-6 cm Respiratory: Lungs clear, Normal breath sounds, No respiratory distress Cardiovascular: Regular rate Neurological: Normal speech Mental/Cognitive Status: Alert/Oriented X3, Normal for patient Cognitive Status: Within normal limits Plan Anesthesia Type: Total IV Consent for Procedure(s) Verified and Reviewed: Yes Code Status: Attempt Resuscitation ASA classification: 3-Severe systemic disease Is this case an emergency?: No
[2021-03-14] MEDS ORDERED: LACTATED RINGERS 450 ML IV ONE (08:32)
[2021-03-14 08:55] VITALS: BP 115/76
--- NOTE | 2021-03-14 09:24 | ANESTHESIA POST OP EVALUATION ---
Anesthesia Post Eval - Post Anesthesia Eval Vitals: Last Vital Signs Temp 36.2 C L 03/14/21 08:55 Pulse 64 03/14/21 08:55 Resp 16 03/14/21 08:55 BP 115/76 03/14/21 08:55 Pulse Ox 97 03/14/21 08:55 CV Function Including HR & BP: Stable Pain Control: Satisfactory Nausea & Vomiting: Negative Mental Status: Baseline Respiratory Status: Airway Patent Hydration Status: Satisfactory Anesthesia Complications: None
== END 2021-03-14 06:28 | disposition home or self-care (01) ==
LOC: SDS 06:27
PROVIDERS: ATTEND Surgery
DX: Z12.11 Encounter for screening for malignant neoplasm of colon (principal); K57.30 Diverticulosis of large intestine without perforation or abscess without bleeding; K64.8 Other hemorrhoids; E66.9 Obesity, unspecified; I25.10 Atherosclerotic heart disease of native coronary artery without angina pectoris; G47.33 Obstructive sleep apnea (adult) (pediatric); Z68.37 Body mass index [BMI] 37.0-37.9, adult; N40.0 Benign prostatic hyperplasia without lower urinary tract symptoms; Z95.2 Presence of prosthetic heart valve
CPT/HCPCS: G0121; J7120

== ENCOUNTER 2021-05-10 14:00 | Outpatient (CLI) | payer MEDICARE, OTHER ==
--- NOTE | 2021-05-11 06:05 | XRAY Report ---
PROCEDURE: Knee 4 View LT INDICATIONS: L KNEE PX TECHNIQUE: 4 views of the left and right knee(s) were acquired. COMPARISON: None. FINDINGS: Bones: No fractures or dislocations. No suspicious bony lesions. Moderate narrowing of the medial femoral tibial joints bilaterally and tricompartmental periarticular osteophyte formation. Soft tissues: Moderate joint effusion. No suspicious soft tissue calcifications. Chondrocalcinosis. IMPRESSION: 1. Bilateral tricompartmental knee joint degeneration. 2. Moderate joint effusion. 3. Chondrocalcinosis. Reviewed by: HEMA Osuna on 05/11/2021 6:04 AM PDT Approved by: Kuldip Gonzalez MD on 05/11/2021 6:04 AM PDT Station ID: [id number]
== END 2021-05-10 23:59 | disposition home or self-care (01) ==
LOC: DI.N 14:00
PROVIDERS: ATTEND Physician Assistant
DX: M17.12 Unilateral primary osteoarthritis, left knee (principal); M11.262 Other chondrocalcinosis, left knee; M25.462 Effusion, left knee

== ENCOUNTER 2021-06-29 11:17 | Outpatient (CLI) | payer MEDICARE, OTHER ==
--- NOTE | 2021-06-29 12:22 | SLEEP CARE CONSULTATION ---
Information from patient questionnaire entered by Tigist Ignacio. I have reviewed and concur with the information entered by Tigist Ignacio. This document represents the service I personally performed and the decisions made by , Yaa Gunn ARNP. History of Present Illness Service Date and Time: 06/29/2021 1117 Previous diagnosis: Severe, Obstructive Sleep Apnea-Hypopnea Syndrome AHI: 48.3 (in 2014) Reason for follow up: other (5 month follow up because AHI is increasing at night) Equipment type: CPAP Equipment obtained from: [facility] (getting supplies as needed) Mask style: Nasal (Wisp) Backup mask available: No (has not gotten supplies, has been in touch with DME) Last cushion change: 5 weeks Prior sleep studies: Yes Year and Where: 2014 [facility] Type of Sleep Study: Polysomnography HPI additional information: MAY LUGO was diagnosed to have severe, AHI 48.3, obstructive sleep apnea-hypopnea syndrome and returns via Video Telehealth visit today for CPAP therapy 5 month follow-up due to AHI increasing. Sleep Study - Results Type of Sleep Study: Polysomnography Prior sleep studies: Yes Year and Where: [facility] CPAP Compliance Data - Data Reviewed with Patient Average duration of nightly device use: 6 hours 2 minutes Compliance rate %: 96.7 Current pressure setting (cmH2O): 14-17 (median 13.1, avg 15.0, peak 14.4) Humidity settin Heated hose settin Average residual AHI: 7.1 Average large leak: 1 hour 8 minutes Subjective Patient concerns: reports: dry mouth, nose, throat, other (headache last couple days). denies: aerophagia, mask discomfort, air blowing in eyes, mask leak noise, condensation in mask/hose, nasal congestion, epistaxis Observed to snore while using device: No Current pressure setting perceived as: comfortable On therapy, patient: reports: sleeping better, awakening more refreshed, being more awake and alert during the day, more rested overall. denies: drowsiness while driving Initial [place] Sleepiness Scale score: 20 (in 2014) Current [place] Sleepiness Scale score: 12 Allergies and Home Medications Home medication list reviewed: Yes (no changes) Review of Systems Review of systems same as previous: Yes (no changes) Physical Exam Vital signs obtained and entered by: Telehealth visit to reduce exposure during Covid pandemic Height: 5 ft 9 in Impression and Plan 1. Obstructive Sleep Apnea-Hypopnea Syndrome, severe, with good treatment compliance and fair apnea control with elevation of residual AHI. On CPAP therapy, the patient has better sleep quality and is more rested overall. Patient pressure may be too low because he has seen elevated AHI numbers since he has been at his daughter's house. He started using his new device about 4 to 5 weeks ago. His current AHI is 7.1 so I will try to adjust his pressure to accommodate. The patients pressure will be changed to autoCPAP 15-17 cmH20 for elevation of residual AHI. Patient advised to contact me if pressure change is uncomfortable so that it can be adjusted. Goals for apnea control discussed. Patient's apnea severity and rationale for treatment to reduce apnea, improve sleep quality and reduce cardiovascular and cerebrovascular events was reviewed. I also reviewed the benefit of consistent device use of CPAP for hypertension and gastric reflux. * Change auto CPAP pressure to 15-17 cmH2O * Notify me if snoring with mask or feeling that the pressure is too much or too little * Attempt to lose weight * Call this office if any problems using CPAP * Return for follow up in 1 year, or sooner if concerns arise Counseling Topics: Spare mask, Weight loss health impact Visit Type: Telehealth Video Video Type: Abi Patient Location: [facility] Location of Provider: Office Patient agrees and consents to this telehealth visit type: Yes Patient agrees to have their insurance billed: Yes Time Spent with Patient (minutes): 21 Provider Statement: I spent 100% of the Telehealth Video Call with the patient with greater than 50% spent counseling the patient and coordination of care.
== END 2021-06-29 11:18 | disposition home or self-care (01) ==
LOC: SC 11:17
PROVIDERS: ATTEND Nurse Practitioner Family
DX: G47.33 Obstructive sleep apnea (adult) (pediatric) (principal)

== ENCOUNTER 2021-09-22 12:13 | Outpatient (CLI) | payer MEDICARE, OTHER ==
[2021-09-22 18:17] LABS: BASOPHILS # (AUTO) 0.1 10^3/uL (0.0-0.1); BASOPHILS % (AUTO) 0.8 %; EOSINOPHILS # (AUTO) 0.2 10^3/uL (0.0-0.7); EOSINOPHILS % (AUTO) 2.6 %; HCT - HEMATOCRIT 46.3 % (42.0-52.0); HGB - HEMOGLOBIN 15.1 g/dL (14.0-18.0); LYMPHOCYTES # (AUTO) 1.5 10^3/uL (1.5-3.5); LYMPHOCYTES % (AUTO) 24.5 %; MEAN CORPUSCULAR HEMOGLOBIN 32.8 pg (27.0-31.0); MEAN CORPUSCULAR HGB CONC 32.6 g/dL (32.0-36.0); MEAN CORPUSCULAR VOLUME 100.7 fL (80.0-94.0); MEAN PLATELET VOLUME 11.2 fL (7.4-11.4); MONOCYTES # (AUTO) 0.6 10^3/uL (0.0-1.0); MONOCYTES % (AUTO) 9.4 %; NEUTROPHILS # (AUTO) 3.8 10^3/uL (1.5-6.6); NEUTROPHILS % (AUTO) 62.4 %; PLT - PLATELET COUNT 105 10^3/uL (130-450); RED CELL DISTRIBUTION WIDTH 13.2 % (12.0-15.0); WHITE BLOOD COUNT 6.1 x10^3/uL (4.8-10.8)
[2021-09-22 18:31] LABS: ALBUMIN 4.2 g/dL (3.2-5.5); ALBUMIN/GLOBULIN RATIO 1.4 (1.0-2.2); ALKALINE PHOSPHATASE 46 IU/L (42-121); ALT ALANINE AMINOTRANSFERASE 58 IU/L (10-60); AMYLASE 39 U/L (28-100); AST ASPARTATE AMINOTRANSFERASE 39 IU/L (10-42); BUN - BLOOD UREA NITROGEN 24 mg/dL (6-20); CALCIUM 9.5 mg/dL (8.5-10.3); CARBON DIOXIDE - CO2 27 mmol/L (21-32); CHLORIDE 104 mmol/L (101-111); CHOL/HDL RATIO 2.4 (<5.0); CHOLESTEROL 169 mg/dL; CREATININE 1.2 mg/dL (0.6-1.2); GFR - MDRD 60 (>89); GLUCOSE 115 mg/dL (70-100); HDL CHOLESTEROL 71 mg/dL; LDL CHOLESTEROL,CALCULATED 86 mg/dL; LDL/HDL RATIO 1.2 (<3.6); LIPASE 23 U/L (22-51); POTASSIUM 4.8 mmol/L (3.5-5.0); SODIUM 139 mmol/L (135-145); TOTAL PROTEIN 7.2 g/dL (6.7-8.2); TRIGLYCERIDES 62 mg/dL; VLDL CHOLESTEROL 12 mg/dL
[2021-09-22 19:24] LABS: BILIRUBIN,URINE NEGATIVE (NEGATIVE); GLUCOSE, URINE (UA) NEGATIVE (NEGATIVE); KETONES,URINE (UA) NEGATIVE (NEGATIVE); LEUKOCYTE ESTERASE, URINE NEGATIVE (NEGATIVE); NITRITE,URINE NEGATIVE (NEGATIVE); OCCULT BLOOD,URINE NEGATIVE (NEGATIVE); PROTEIN,URINE NEGATIVE (NEGATIVE); UROBILINOGEN,URINE 0.2 (NORMAL) E.U./dL (NORMAL)
[2021-09-22 19:36] LABS: CLARITY,URINE CLOUDY (CLEAR)
[2021-09-22 19:49] LABS: RBC,URINE 0-5 /HPF (0-5); WBC,URINE 0-3 /HPF (0-3)
[2021-09-22 19:50] LABS: AMORPHOUS SEDIMENT,UR Moderate /LPF; BACTERIA,URINE Few /HPF (None Seen); SQUAMOUS EPITHELIAL CELL,UR RARE Squamous (<= Few)
[2021-09-22 20:24] LABS: ESTIMATED AVERAGE GLUCOSE 137 mg/dL (70-100); HEMOGLOBIN A1c% 6.4 % (4.27-6.07)
== END 2021-09-22 23:59 | disposition home or self-care (01) ==
LOC: LAB.WCP 12:13
PROVIDERS: ATTEND Family Medicine
DX: E11.9 Type 2 diabetes mellitus without complications (principal); R10.9 Unspecified abdominal pain
CPT/HCPCS: 36415; 80053; 80061; 81001; 82150; 83036; 83690; 83721; 84550; 85025; 87086

== ENCOUNTER 2021-10-11 07:00 | Outpatient (CLI) | payer MEDICARE, OTHER ==
[2021-10-11 13:02] LABS: H. PYLORIS ANTIGEN STL NEGATIVE (Negative)
== END 2021-10-11 23:59 | disposition home or self-care (01) ==
LOC: LAB.WCP 07:00
PROVIDERS: ATTEND Family Medicine
DX: R14.0 Abdominal distension (gaseous) (principal)
CPT/HCPCS: 81599; 83516; 87338

== ENCOUNTER 2021-10-13 16:20 | Outpatient (CLI) | payer MEDICARE, OTHER ==
[2021-10-13] MEDS ORDERED: IOPAMIDOL-300 50 ML VIAL ONE (16:41)
[2021-10-13] MEDS ORDERED: iohexoL-300 100 ML VIAL ONE (16:41)
[2021-10-13] MEDS ORDERED: iohexoL-300 100 ML VIAL IVP ONE (21:16)
[2021-10-13] MEDS ORDERED: IOPAMIDOL-300 50 ML VIAL PO ONE (21:17)
--- NOTE | 2021-10-14 09:53 | CT Report ---
PROCEDURE: Abdomen/Pelvis W INDICATIONS: ABD PAIN CONTRAST: IV CONTRAST: Optiray 320 ml: 100 PO CONTRAST: Isovue 300 ml50 TECHNIQUE: After the administration of IV and oral contrast, 5 mm thick sections acquired from the diaphragms to the symphysis. 5 mm thick coronal and sagittal reformats were acquired. For radiation dose reducti on, the following was used: automated exposure control, adjustment of mA and/or kV according to buzz ent size. COMPARISON: None. FINDINGS: Image quality: Excellent. ABDOMEN: Lung bases: Lung bases are clear. Heart size is normal. TAPVR. Solid organs: Mild to moderate hepatic steatosis. Small hepatic hypodensities near the left lobe dom e. The largest measures 2.3 cm with internal Hounsfield units of a cyst. The gallbladder is surgicall y absent. The spleen is normal size and morphology. No adrenal nodules. Normal pancreas. No biliary d ilatation. The kidneys are normal size. There are parapelvic cysts bilaterally as well as prominent cortical med ullary, partially exophytic cysts. The largest on the right arising from the posterior lower pole perfecto sures 7.3 cm. The largest on the left arises from the upper pole and measures 7.1 cm. It contains a f ine septation without significant enhancement. No solid renal masses on either side. No hydroureter. Peritoneum and bowel: Mild diverticulosis involving the descending and sigmoid colon. No acute diver ticulitis. Normal appendix. The stomach contains ingested material. The small bowel is normal caliber . Bowel loops demonstrate normal wall thickness and caliber. No free fluid or air. Nodes and vessels: The splenic vein is attenuated and there are compensatory left upper quadrant/per igastric varices. No esophageal varices. No retroperitoneal or mesenteric adenopathy by size criteria . Aorta and inferior vena cava are normal in size. Moderate aortic calcification. Miscellaneous: No ventral hernias. PELVIS: Genitourinary: Bladder wall thickness is normal. Prostate gland is normal in size and there are bra chytherapy seeds/or fiducial markers present. Miscellaneous: Small fat-containing right inguinal hernia. Bones: No suspicious bony lesions. Right superior acetabular fixation screw. Degenerative disc heig ht loss in the lumbar spine. No vertebral body compression fractures. IMPRESSION: 1. Diverticulosis without acute diverticulitis in the descending and sigmoid colon. 2. Mild to moderate hepatic steatosis and a few small liver cysts. 3. Bilateral renal cysts. No solid renal mass. 4. Attenuated splenic vein, potentially result of remote pancreatitis with compensatory varices prese nt. 5. Small fat-containing right inguinal hernia. Reviewed by: Winsome Kidd MD on 10/14/2021 9:51 AM PST Approved by: Winsome Kidd MD on 10/14/2021 9:51 AM [facility] Station ID: [id number]
== END 2021-10-13 16:21 | disposition home or self-care (01) ==
LOC: DI 16:20
PROVIDERS: ATTEND Family Medicine
DX: R10.9 Unspecified abdominal pain (principal); K57.30 Diverticulosis of large intestine without perforation or abscess without bleeding; K76.0 Fatty (change of) liver, not elsewhere classified; K76.89 Other specified diseases of liver; N28.1 Cyst of kidney, acquired; I87.8 Other specified disorders of veins; K40.90 Unilateral inguinal hernia, without obstruction or gangrene, not specified as recurrent
CPT/HCPCS: 74177; Q9967

== ENCOUNTER 2021-11-18 14:57 | Outpatient (CLI) | payer MEDICARE, OTHER ==
--- NOTE | 2021-11-19 08:33 | Ultrasound Report ---
PROCEDURE: Abdominal ultrasound, complete INDICATIONS: ABD DISCOMFORT TECHNIQUE: Real-time scanning was performed of the abdominal and retroperitoneal organs, with image documentatio n. COMPARISON: None. FINDINGS: Liver: Liver shows diffusely increased echogenicity without focal mass lesion. No intrahepatic ducta l dilation. Small hepatic cysts measuring up to 2.6 cm Gallbladder: Cholecystectomy Biliary ducts: Intrahepatic bile ducts are non-dilated. Extrahepatic bile duct caliber measures 4.6 mm. Normal is 6-7 mm or less in diameter, or 10 mm or less post-cholecystectomy. Pancreas: Visualized portions of the pancreas are sonographically normal. Spleen: Spleen is normal in size and homogeneous in echotexture. Kidneys: Multiple bilateral renal cysts noted, largest on the right measures 8.3 x 6.1 cm, largest on the left measures 7.6 x 6.3 cm. No hydronephrosis or renal atrophy present. Aorta: Visualized aorta is normal in caliber at less than 3 cm. Iliacs: Proximal common iliac arteries are normal in caliber at less than 2.5 cm. IVC: Intrahepatic inferior vena cava is patent. Miscellaneous: No free abdominal fluid. IMPRESSION: 1. Hepatic fatty infiltration. 2. Large bilateral renal cysts without hydronephrosis or obstructive uropathy. Reviewed by: Dario Lopez MD on 11/19/2021 7:31 AM [facility] Approved by: Dario Lopez MD on 11/19/2021 7:31 AM [facility] Station ID: [id number]
--- NOTE | 2021-11-19 08:34 | Ultrasound Report ---
PROCEDURE: Doppler Complete INDICATIONS: abd discomfort TECHNIQUE: Real-time scanning was performed of the abdominal and retroperitoneal organs, with image documentatio n. COMPARISON: None. FINDINGS: Liver: Liver shows diffusely increased echogenicity without focal mass lesion. No intrahepatic ducta l dilation. Small hepatic cysts measuring up to 2.6 cm Gallbladder: Cholecystectomy Biliary ducts: Intrahepatic bile ducts are non-dilated. Extrahepatic bile duct caliber measures 4.6 mm. Normal is 6-7 mm or less in diameter, or 10 mm or less post-cholecystectomy. Pancreas: Visualized portions of the pancreas are sonographically normal. Spleen: Spleen is normal in size and homogeneous in echotexture. Kidneys: Multiple bilateral renal cysts noted, largest on the right measures 8.3 x 6.1 cm, largest on the left measures 7.6 x 6.3 cm. No hydronephrosis or renal atrophy present. Aorta: Visualized aorta is normal in caliber at less than 3 cm. Iliacs: Proximal common iliac arteries are normal in caliber at less than 2.5 cm. IVC: Intrahepatic inferior vena cava is patent. Miscellaneous: No free abdominal fluid. IMPRESSION: 1. Hepatic fatty infiltration. 2. Large bilateral renal cysts without hydronephrosis or obstructive uropathy. Reviewed by: Dario Lopez MD on 11/19/2021 7:33 AM [facility] Approved by: Dario Lopez MD on 11/19/2021 7:33 AM [facility] Station ID: [id number]
== END 2021-11-18 14:58 | disposition home or self-care (01) ==
LOC: DI 14:57
PROVIDERS: ATTEND Internal Medicine Gastroenterology
DX: R93.3 Abnormal findings on diagnostic imaging of other parts of digestive tract (principal); R10.9 Unspecified abdominal pain; K76.0 Fatty (change of) liver, not elsewhere classified; N28.1 Cyst of kidney, acquired
CPT/HCPCS: 93975

== ENCOUNTER 2022-01-03 08:00 | Outpatient (CLI) | payer MEDICARE, OTHER | END 2022-01-03 23:59 | LOC: LAB.N 08:00 | PROVIDERS: ATTEND Nurse Practitioner | DX: J18.9 Pneumonia, unspecified organism (principal); Z20.822 Contact with and (suspected) exposure to COVID-19 ==

== ENCOUNTER 2022-04-14 09:12 | Outpatient (CLI) | payer MEDICARE, OTHER ==
[2022-04-14 09:43] VITALS: BP 127/81
--- NOTE | 2022-04-14 09:43 | SLEEP CARE CONSULTATION ---
Information from patient questionnaire entered by Alex Saavedra MA. I have reviewed and concur with the information entered by Alex Saavedra MA. This document represents the service I personally performed and the decisions made by , Yaa Gunn ARNP. History of Present Illness Service Date and Time: 04/14/2022 0912 Previous diagnosis: Severe, Obstructive Sleep Apnea-Hypopnea Syndrome AHI: 48.3 (in 2014) Reason for follow up: other (9 MONTH F/U, LAST SEEN 06/2021, PALAK, [place] 12/08/2014, NEW RX? ) Equipment type: CPAP Equipment obtained from: Other ([facility]; getting supplies as needed) Mask style: Nasal (Wisp) Mask brand: Respironics Backup mask available: Yes (old mask) Last cushion change: 1 week [facility]: Yes [facility] Type of Sleep Study: Polysomnography HPI additional information: MAY LUGO was diagnosed to have severe, AHI 48.3, obstructive sleep apnea-hypopnea syndrome and returned today for CPAP therapy nine month follow- up. Sleep Study - Results Type of Sleep Study: Polysomnography Prior sleep studies: Yes Year and Where: 2014 - [facility] CPAP Compliance Data - Data Reviewed with Patient Average duration of nightly device use: 5 hours 16 minutes Compliance rate %: 84.4 (90 days on DS2; 87/90 days used) Current pressure setting (cmH2O): 15-18 Average residual AHI: 9.4 Central apnea: 0.8 Obstructive apnea: 3.4 Hypopnea: 5.2 Average large leak: 49 mins 26 secs Subjective Missed days of use due to: reports: other (not sleeping) Patient concerns: reports: dry mouth, nose, throat. denies: aerophagia, mask discomfort, air blowing in eyes, mask leak noise, condensation in mask/hose, nasal congestion, epistaxis, other Observed to snore while using device: Yes (per his ) Current pressure setting perceived as: comfortable On therapy, patient: reports: sleeping better, awakening more refreshed, being more awake and alert during the day, more rested overall, drowsiness while driving (some more recently) Initial [place] Sleepiness Scale score: 20 (in 2014) Current [place] Sleepiness Scale score: 23 (04/14/2022) Allergies and Home Medications Home medication list reviewed: Yes (no changes) Allergy and home medication list: Allergies No Known Drug Allergies Allergy (Verified 03/11/21 12:29) Review of Systems Review of systems same as previous: Yes (no changes) Physical Exam Vital signs obtained and entered by: SUZIE RON Blood Pressure: 127/81 (RESP 18, PULSE 64, LEFT) Heart Rate: 61 O2 Saturation: 97 Height: 5 ft 9 in Weight: 259 lb (CLOTHES) Weight change since last visit: LOSE Body Mass Index: 38.2 BMI Classification: Obese Impression and Plan 1. Obstructive Sleep Apnea-Hypopnea Syndrome, severe, with good treatment compliance and fair apnea control with elevated residual AHI. On CPAP therapy, the patient has better sleep quality and is more rested overall. He states he has been having an increase in daytime sleepiness and drowsy driving progressively over the last 2 years. The patients pressure will be changed to autoCPAP 17-20 cmH20 for elevation of residual AHI. Patient advised to contact me if pressure change is uncomfortable so that it can be adjusted. Goals for apnea control discussed. Patient's apnea severity and rationale for treatment to reduce apnea, improve sleep quality and reduce cardiovascular and cerebrovascular events was reviewed. I also reviewed the benefit of consistent device use of CPAP for hypertension and gastric reflux. 2. Obesity, unspecified. Currently patients BMI is 38.2. Obesity increases the risk of apnea, CPAP pressure requirements and overall health risks especially cardiovascular and diabetes. Thus patient is advised to lose weight. Weight loss can be done with reducing portion size, reducing refined foods and balancing content with vegetables, fruit and whole grain foods. In addition, patient encouraged to get regular exercise. The patient's CPAP pressure range should accommodate some weight loss. Symptoms to report for additional pressure adjustment discussed. * Change auto CPAP pressure to 17-20 cmH2O * Notify me if snoring with mask or feeling that the pressure is too much or too little * Attempt to lose weight * Call this office if any problems using CPAP * Return for follow up in 1-2 months, or sooner if concerns arise Counseling Topics: Spare mask, Weight loss health impact Visit Type: In Office Time Spent with Patient (minutes): 15 Provider Statement: I spent 100% of the Face to Face Visit with the patient with greater than 50% spent counseling the patient and coordination of care.
== END 2022-04-14 09:13 | disposition home or self-care (01) ==
LOC: SC 09:12
PROVIDERS: ATTEND Nurse Practitioner Family
DX: G47.33 Obstructive sleep apnea (adult) (pediatric) (principal); E66.9 Obesity, unspecified; Z68.38 Body mass index [BMI] 38.0-38.9, adult
CPT/HCPCS: 99212; G0463

== ENCOUNTER 2022-04-28 12:25 | Emergency (ER) | payer MEDICARE, OTHER ==
[2022-04-28 12:52] LABS: BASOPHILS % (AUTO) 0.5 %; EOSINOPHILS # (AUTO) 0.1 10^3/uL (0.0-0.7); EOSINOPHILS % (AUTO) 2.2 %; HCT - HEMATOCRIT 45.8 % (42.0-52.0); LYMPHOCYTES # (AUTO) 1.5 10^3/uL (1.5-3.5); LYMPHOCYTES % (AUTO) 23.3 %; MEAN CORPUSCULAR HEMOGLOBIN 33.1 pg (27.0-31.0); MEAN CORPUSCULAR HGB CONC 32.8 g/dL (32.0-36.0); MEAN CORPUSCULAR VOLUME 101.1 fL (80.0-94.0); MEAN PLATELET VOLUME 10.4 fL (7.4-11.4); MONOCYTES # (AUTO) 0.6 10^3/uL (0.0-1.0); NEUTROPHILS # (AUTO) 4.2 10^3/uL (1.5-6.6); NEUTROPHILS % (AUTO) 64.8 %; PLT - PLATELET COUNT 105 10^3/uL (130-450); RED BLOOD COUNT 4.53 10^6/uL (4.70-6.10); RED CELL DISTRIBUTION WIDTH 13.8 % (12.0-15.0); WHITE BLOOD COUNT 6.5 x10^3/uL (4.8-10.8)
[2022-04-28 13:02] LABS: ALBUMIN 4.5 g/dL (3.2-5.5); ALBUMIN/GLOBULIN RATIO 1.5 (1.0-2.2); BILIRUBIN,TOTAL 0.8 mg/dL (0.2-1.0); CREATININE 1.3 mg/dL (0.6-1.2); POTASSIUM 5.1 mmol/L (3.5-5.0); TOTAL PROTEIN 7.5 g/dL (6.7-8.2)
--- NOTE | 2022-04-28 13:08 | XRAY Report ---
PROCEDURE: Chest 1 View X-Ray INDICATIONS: Chest pain TECHNIQUE: One view of the chest was acquired. COMPARISON: None FINDINGS: Surgical changes and devices: None. Lungs and pleura: No pleural effusions or pneumothorax. Lungs are clear. Mediastinum: Mediastinal contours appear normal. Heart size is normal. Bones and chest wall: No suspicious bony lesions. Overlying soft tissues appear unremarkable. IMPRESSION: No acute cardiopulmonary process demonstrated radiographically. Reviewed by: Tavo Kenny MD on 04/28/2022 1:07 PM PDT Approved by: Tavo Kenny MD on 04/28/2022 1:07 PM PDT Station ID: [id number]
--- NOTE | 2022-04-28 14:25 | ED Physician Documentation ---
PD HPI DYSPNEA - Stated complaint Stated Complaint: BODY SWELLING - Chief complaint Chief Complaint: Cardiac - History obtained from History obtained from: Patient - History of Present Illness Timing - onset: How many weeks ago (few weeks of gradual 20 lb weight gain and leg edema. No orthopnea but has had fatigue with activity. No chest pain. No change in diet nor medication.) Timing - onset during: Light activity Timing - duration: Weeks Timing - details: Gradual onset, Still present Inciting event(s): No: Out of meds, URI Improved by: Rest Worsened by: Exertion. No: Laying flat Associated symptoms: Bilateral edema. No: Fever, Cough, Hemoptysis, Chest pain / discomfort, Palpitations Similar symptoms before: Diagnosis (has had some CHF prior to valve replacement 3 years ago, but has not had that since. Is not usually on diuretic, but did take HCTZ yesterday that he had in med cabinet. He called Cardiology office today and was referred to ER as they did not have any appts for 2 weeks.) Recently seen: Not recently seen Review of Systems Ten Systems: 10 systems reviewed and negative Constitutional: denies: Fever, Chills Nose: denies: Rhinorrhea / runny nose, Congestion Throat: denies: Sore throat Cardiac: reports: Pedal edema. denies: Chest pain / pressure, Palpitations, Calf pain Respiratory: reports: Dyspnea. denies: Cough, Wheezing GI: reports: Abdominal Swelling (mild). denies: Abdominal Pain, Nausea, Vomiting, Diarrhea Neurologic: reports: Generalized weakness. denies: Near syncope, Syncope PD PAST MEDICAL HISTORY - Past Medical History Cardiovascular: Hypertension, High cholesterol, Valve disorder (AVR 2019), Other (no history of atrial fib) Respiratory: CPAP use Endocrine/Autoimmune: None GI: None : Benign prostate hypertrophy HEENT: Chronic vision loss Psych: None Musculoskeletal: None Derm: Other - Past Surgical History General: Cholecystectomy Ortho: Spine surgery, Other Cardiovascular: Valve replacement (bovine aortic valve 2018) HEENT: Tonsil/Adenoidectomy - Present Medications Home Medications: Ambulatory Orders Medication Instructions Recorded Confirmed Aspirin [Aspirin EC] 81 mg PO DAILY 03/11/21 03/11/21 Losartan [Cozaar] 100 mg PO DAILY 03/11/21 03/14/21 Metoprolol Tartrate [Lopressor] 50 mg PO BID 03/11/21 03/14/21 Rosuvastatin Calcium [Crestor] 40 mg PO DAILY 03/11/21 03/14/21 Tamsulosin HCl [Flomax] 0.4 mg PO DAILY 03/11/21 03/14/21 Apixaban [Eliquis] 5 mg PO BID 30 Days #60 tablet 04/28/22 Furosemide [Lasix] 20 mg PO DAILY 30 Days #30 tablet 04/28/22 - Allergies Allergies/Adverse Reactions: Allergies Allergy/AdvReac Type Severity Reaction Status Date / Time No Known Drug Allergies Allergy Verified 04/28/22 12:34 - Living Situation Living Situation: reports: With family Living Arrangement: reports: At home PD ED PE NORMAL - Vitals Vital signs reviewed: Yes - General General: Alert and oriented X 3, No acute distress, Well developed/nourished - Neck Neck: Supple, no meningeal sign, No adenopathy, No JVD - Cardiac Cardiac: Other (/ murmur left chest.). No: RRR (irregular but rate controlled.) - Respiratory Respiratory: No respiratory distress, Clear bilaterally - Abdomen Abdomen: Soft, Non tender. No: Normal bowel sounds (diminished) - Derm Derm: Normal color, Warm and dry - Extremities Extremities: Normal ROM s pain, No calf tenderness / cord, Other (2+ pitting edema in both legs up to knees. Mild edema in hands. ) - Neuro Neuro: Alert and oriented X 3, No motor deficit, Normal speech Results - Vitals Vitals: Vital Signs - 24 hr 04/28/22 04/28/22 04/28/22 12:29 15:23 16:39 Temperature 36.5 C 36.9 C Heart Rate 71 74 69 Respiratory 16 Rate Blood Pressure 141/79 H 118/75 121/66 O2 Saturation 99 97 100 Oxygen O2 Source Room air - EKG (time done) 12:34 Rate: Rate (enter#) (70) Rhythm: Atrial fibrillation [place]: Normal QRS: Normal Ischemia: Normal ST segments. No: ST elevation c/w ischemia, ST depression Compare to prior EKG: Changed from prior EKG (discussed with his Ear Machine Operator who said prior ECG has been NSR.) - Labs Labs: Laboratory Tests 04/28/22 04/28/22 04/28/22 12:44 12:44 12:44 WBC 6.5 RBC 4.53 L Hgb 15.0 Hct 45.8 MCV 101.1 H MCH 33.1 H MCHC 32.8 RDW 13.8 Plt Count 105 L MPV 10.4 Neut # (Auto) 4.2 Lymph # (Auto) 1.5 [place] # (Auto) 0.6 Eos # (Auto) 0.1 Baso # (Auto) 0.0 Absolute Nucleated RBC 0.00 Nucleated RBC % 0.0 Sodium 142 Potassium 5.1 H Chloride 104 Carbon Dioxide 28 Anion Gap 10.0 BUN 31 H Creatinine 1.3 H Estimated GFR (MDRD) 54 L Glucose 120 H Calcium 10.0 Magnesium Total Bilirubin 0.8 AST 34 ALT 68 H Alkaline Phosphatase 43 Troponin I High Sens 5.1 B-Natriuretic Peptide Total Protein 7.5 Albumin 4.5 Globulin 3.0 Albumin/Globulin Ratio 1.5 Lipase 28 04/28/22 04/28/22 12:44 12:44 WBC RBC Hgb Hct MCV MCH MCHC RDW Plt Count MPV Neut # (Auto) Lymph # (Auto) [place] # (Auto) Eos # (Auto) Baso # (Auto) Absolute Nucleated RBC Nucleated RBC % Sodium Potassium Chloride Carbon Dioxide Anion Gap BUN Creatinine Estimated GFR (MDRD) Glucose Calcium Magnesium 2.3 Total Bilirubin AST ALT Alkaline Phosphatase Troponin I High Sens B-Natriuretic Peptide 335 H Total Protein Albumin Globulin Albumin/Globulin Ratio Lipase - Rads (name of study) chest xray Radiology: Prelim report reviewed (no acute findings. No CHF. ), See rad report PD MEDICAL DECISION MAKING - ED course Complexity details: reviewed results, considered differential (leg edema and likely some abd fluid. Not seeming to be in pulmonary edema, so presume right heart failure. Still gave diuretic with good urine output while in ER. ), d/w patient, d/w office 365 consultant (Dr Ross, Cardiology at [facility], who directed Lasix and Eliquis. ) Departure - Departure Disposition: 01 Home, Self Care Clinical Impression: Edema of both legs, CHF (congestive heart failure), Atrial fibrillation with controlled ventricular rate Condition: Stable Record reviewed to determine appropriate education?: Yes Instructions: Atrial Fibrillation Dc, ED Edema Legs Bilateral Follow-Up: Leonel Ross MD [Physician No Access] - Prescriptions: Apixaban [Eliquis] 5 mg PO BID 30 Days #60 tablet Furosemide [Lasix] 20 mg PO DAILY 30 Days #30 tablet Comments: Your EKG and heart monitor showed you to be in a rate controlled atrial fibrillation. We printed a copy of your EKG for you so you could bring it to Aminta Ross. This may be a consistent rhythm now at this point or may be intermittent. The main focus with the atrial fibrillation is that it remains rate controlled in the typical range 60-90. You can check your heart rate and blood pressure once or twice daily until follow-up with Dr. Ross to see if your heart rate remains in a good range. Dr. Ross would like you to start of furosemide/Lasix low-dose tablet daily until follow-up. He is out on vacation for 2 weeks but states he will be seeing people in the office on the . Call his office to set up a time for that date or soon thereafter. Dr. Ross would also like you to stop your aspirin and instead switch to a oral blood thinner called Eliquis twice daily. I transmitted these prescriptions to [facility] pharmacy in [place]. I would anticipate improvement in your edema and loss of the weight you had recently gained, with use of the diuretic over the next week or 2. Return to the ER if further problems. Discharge Date/Time: 04/28/22 16:39
[2022-04-28] MEDS ORDERED: FUROSEMIDE 20 MG/2 ML VIAL IVP STA (14:57)
[2022-04-28 16:39] VITALS: BP 121/66
== END 2022-04-28 16:39 | disposition home or self-care (01) ==
LOC: ED 12:25
DX: R60.9 Edema, unspecified (principal); I11.0 Hypertensive heart disease with heart failure; I50.9 Heart failure, unspecified; Z79.01 Long term (current) use of anticoagulants; Z95.2 Presence of prosthetic heart valve; I48.91 Unspecified atrial fibrillation
CPT/HCPCS: 36415; 80053; 83690; 83735; 83880; 84484; 85025; 93005; 96374; 99283

== ENCOUNTER 2022-05-03 11:25 | Outpatient (CLI) | payer MEDICARE, OTHER ==
[2022-05-03 17:47] LABS: BASOPHILS % (AUTO) 0.6 %; EOSINOPHILS # (AUTO) 0.2 10^3/uL (0.0-0.7); EOSINOPHILS % (AUTO) 2.4 %; HCT - HEMATOCRIT 45.9 % (42.0-52.0); HGB - HEMOGLOBIN 14.9 g/dL (14.0-18.0); LYMPHOCYTES # (AUTO) 1.8 10^3/uL (1.5-3.5); LYMPHOCYTES % (AUTO) 28.3 %; MEAN CORPUSCULAR HEMOGLOBIN 32.3 pg (27.0-31.0); MEAN CORPUSCULAR HGB CONC 32.5 g/dL (32.0-36.0); MEAN CORPUSCULAR VOLUME 99.4 fL (80.0-94.0); MEAN PLATELET VOLUME 11.3 fL (7.4-11.4); MONOCYTES # (AUTO) 0.7 10^3/uL (0.0-1.0); MONOCYTES % (AUTO) 10.6 %; NEUTROPHILS # (AUTO) 3.6 10^3/uL (1.5-6.6); NEUTROPHILS % (AUTO) 57.9 %; PLT - PLATELET COUNT 110 10^3/uL (130-450); RED BLOOD COUNT 4.62 10^6/uL (4.70-6.10); RED CELL DISTRIBUTION WIDTH 13.6 % (12.0-15.0); WHITE BLOOD COUNT 6.3 x10^3/uL (4.8-10.8)
[2022-05-03 18:27] LABS: ALBUMIN 4.4 g/dL (3.2-5.5); ALBUMIN/GLOBULIN RATIO 1.5 (1.0-2.2); BILIRUBIN,TOTAL 0.8 mg/dL (0.2-1.0); CALCIUM 9.7 mg/dL (8.5-10.3); CREATININE 1.6 mg/dL (0.6-1.2); POTASSIUM 4.7 mmol/L (3.5-5.0); TOTAL PROTEIN 7.3 g/dL (6.7-8.2)
== END 2022-05-03 11:26 | disposition home or self-care (01) ==
LOC: LAB.N 11:25
PROVIDERS: ATTEND Physician Assistant
DX: I48.0 Paroxysmal atrial fibrillation (principal); R60.9 Edema, unspecified
CPT/HCPCS: 36415; 80053; 85025

== ENCOUNTER 2022-05-05 14:44 | Outpatient (CLI) | payer MEDICARE, OTHER ==
[2022-05-05 18:30] LABS: CALCIUM 9.5 mg/dL (8.5-10.3); CREATININE 1.8 mg/dL (0.6-1.2); POTASSIUM 4.8 mmol/L (3.5-5.0)
[2022-05-05 18:31] LABS: BILIRUBIN,URINE NEGATIVE (NEGATIVE); GLUCOSE, URINE (UA) NEGATIVE (NEGATIVE); KETONES,URINE (UA) NEGATIVE (NEGATIVE); LEUKOCYTE ESTERASE, URINE NEGATIVE (NEGATIVE); NITRITE,URINE NEGATIVE (NEGATIVE); OCCULT BLOOD,URINE NEGATIVE (NEGATIVE); PH,URINE 5.5 PH (5.0-7.5); PROTEIN,URINE NEGATIVE (NEGATIVE); UROBILINOGEN,URINE 0.2 (NORMAL) E.U./dL (NORMAL)
[2022-05-05 18:32] LABS: CLARITY,URINE CLOUDY (CLEAR)
[2022-05-05 19:38] LABS: AMORPHOUS SEDIMENT,UR Marked /LPF; BACTERIA,URINE None Seen /HPF (None Seen); RBC,URINE None Seen /HPF (0-5); SQUAMOUS EPITHELIAL CELL,UR NONE SEEN (<= Few); WBC,URINE 0-3 /HPF (0-3)
== END 2022-05-05 14:45 | disposition home or self-care (01) ==
LOC: LAB.N 14:44
PROVIDERS: ATTEND Physician Assistant
DX: R79.89 Other specified abnormal findings of blood chemistry (principal)
CPT/HCPCS: 36415; 80048; 81001; 87086

== ENCOUNTER 2022-06-27 08:16 | Outpatient (CLI) | payer MEDICARE, OTHER ==
[2022-06-27 09:04] VITALS: BP 116/80
--- NOTE | 2022-06-27 09:04 | SLEEP CARE CONSULTATION ---
Information from patient questionnaire entered by Zo Chan. I have reviewed and concur with the information entered by Zo Chan. This document represents the service I personally performed and the decisions made by , Yaa Gunn ARNP. History of Present Illness Service Date and Time: 06/27/2022 0816 Previous diagnosis: Severe, Obstructive Sleep Apnea-Hypopnea Syndrome AHI: 48.3 (in 2014) Reason for follow up: other (2 MONTH F/U) Equipment type: CPAP (DREAM[place]) Equipment obtained from: Other ([facility]; getting supplies as needed) Mask style: Nasal (Wisp) Backup mask available: Yes (other mask) Last cushion change: 2 weeks Prior sleep studies: Yes Year and Where: 2014 - [facility] Type of Sleep Study: Polysomnography HPI additional information: MAY LUGO was diagnosed to have severe, AHI 48.3, obstructive sleep apnea-hypopnea syndrome and returned today for CPAP therapy two month follow-up. Sleep Study - Results Type of Sleep Study: Polysomnography Prior sleep studies: Yes Year and Where: 2014 - [facility] CPAP Compliance Data - Data Reviewed with Patient Average duration of nightly device use: 5 HOURS, 17 MINUTES, 30 SECONDS Compliance rate %: 85.6 (12/27/21 TO 06/24/22; 180/180 days used) Current pressure setting (cmH2O): 17-20 (avg 17.0) Average residual AHI: 9.8 Central apnea: 0.9 Obstructive apnea: 3.7 Hypopnea: 5.9 Average large leak: 50 mins 15 secs Subjective Patient concerns: reports: mask leak noise, dry mouth, nose, throat (sleeping with mouth open). denies: aerophagia, mask discomfort, air blowing in eyes, condensation in mask/hose, nasal congestion, epistaxis Observed to snore while using device: Yes Current pressure setting perceived as: comfortable On therapy, patient: reports: other (not feeling difference in restedness with using CPAP) Initial [place] Sleepiness Scale score: 20 (in 2014) Current [place] Sleepiness Scale score: 19 (06/27/22) Allergies and Home Medications Home medication list reviewed: Yes (Eliquis; stopped baby aspirin) Allergy and home medication list: Allergies No Known Drug Allergies Allergy (Verified 07/22/22 12:34 NEW MEDICATION: ELIQUIS. Review of Systems Review of systems same as previous: No (Atrial Fibrillation) Physical Exam Vital signs obtained and entered by: STELLA BOYER Blood Pressure: 116/80 (LEFT ARM ) Cuff size: regular Heart Rate: 67 O2 Saturation: 97 Height: 5 ft 9 in Weight: 258 lb Body Mass Index: 38.0 BMI Classification: Obese Impression and Plan 1. Obstructive Sleep Apnea-Hypopnea Syndrome, severe, with good treatment compliance and fair apnea control. On CPAP therapy, the patient is not feeling a difference in how rested he is feeling or his sleep quality. His is waking him up telling him that he is snoring. His residual AHI is elevated. Patient states he is needing to nap in the afternoon and is just overall feeling tired through the day. He was recently diagnosed with atrial fibrillation. They try to convert it into normal sinus but this did not happen. He has follow-ups with cardiology for this. I adjusted his pressures last time he was here but there is no change in apnea control. Upon looking at his therapy report his central index is low at 0.9 and obstructive index is at 3.7 with hypopnea index at 5.9. I feel it would be advantageous to have him do a titration study to determine best therapy pressure and modality. After speaking with the patient about this, he agreed to go to [facility] for a titration study. He acknowledged that he will have to have a COVID test 72 hours prior to this test. We will follow-up with him here after the titration test is completed. Patient's apnea severity and rationale for treatment to reduce apnea, improve sleep quality and reduce cardiovascular and cerebrovascular events was reviewed. I also reviewed the benefit of consistent device use of CPAP for hypertension, arrhythmia and gastric reflux. * Continue auto CPAP pressure at 17-20 cmH2O * Titration study at [facility] * Covid test 72 hours prior to titration study * Notify me if snoring with mask or feeling that the pressure is too much or too little * Call this office if any problems using CPAP * Return for follow up after titration study, or sooner if concerns arise Counseling Topics: Spare mask, Weight loss health impact Visit Type: In Office Time Spent with Patient (minutes): 27 Provider Statement: I spent 100% of the Face to Face Visit with the patient with greater than 50% spent counseling the patient and coordination of care.
== END 2022-06-27 08:17 | disposition home or self-care (01) ==
LOC: SC 08:16
PROVIDERS: ATTEND Nurse Practitioner Family
DX: G47.33 Obstructive sleep apnea (adult) (pediatric) (principal); E66.9 Obesity, unspecified; Z68.38 Body mass index [BMI] 38.0-38.9, adult
CPT/HCPCS: 99213; G0463; 99212

== ENCOUNTER 2022-08-09 09:00 | Outpatient (CLI) | payer MEDICARE, OTHER ==
[2022-08-09 13:01] LABS: CALCIUM 10.4 mg/dL (8.5-10.3); CREATININE 1.7 mg/dL (0.6-1.2); POTASSIUM 4.7 mmol/L (3.5-5.0)
== END 2022-08-09 09:01 | disposition home or self-care (01) ==
LOC: LAB.N 09:00
PROVIDERS: ATTEND Internal Medicine Cardiovascular Disease
DX: I50.32 Chronic diastolic (congestive) heart failure (principal)
CPT/HCPCS: 36415; 80048

== ENCOUNTER 2022-08-17 07:12 | Outpatient (CLI) | payer MEDICARE, OTHER | END 2022-08-17 07:13 | disposition home or self-care (01) | LOC: LAB.N 07:12 | PROVIDERS: ATTEND Nurse Practitioner Family | DX: U07.1 COVID-19 (principal) ==

== ENCOUNTER 2022-09-14 10:14 | Outpatient (CLI) | payer MEDICARE, OTHER ==
[2022-09-14 11:04] VITALS: BP 100/60
--- NOTE | 2022-09-14 11:04 | SLEEP CARE CONSULTATION ---
Information from patient questionnaire entered by Zo Chan. I have reviewed and concur with the information entered by Zo Chan. This document represents the service I personally performed and the decisions made by , Yaa Gunn ARNP. History of Present Illness Service Date and Time: 09/14/2022 1014 Initial [place] Sleepiness Scale score: 20 (in 2014) Current [place] Sleepiness Scale score: 17 (09/14/22) Additional HPI information: MAY LUGO retruns for follow up of the sleep study with a manual CPAP titration study performed on 08/20/2022. The patient was informed of the following polysomnography findings: Complex sleep apnea syndrome and heart rhythm noted to be atrial fibrillation. I explained that the optimal CPAP pressure or BIPAP S pressure was not accomplished up to . It was recommended that he be started on BIPAP ST therapy to control the central and Edgar alvarado breathing noted. Sleep Study - Results Type of Sleep Study: Polysomnography (F/U TITRATION AT [place]) Prior sleep studies: Yes Year and Where: 2014 - [facility] Polysomnography/Home Sleep Study results: Impression: The quality of the study is good. CPAP was initiated at 14 cm H2O and titrated up to BiPAP at 21/16 cm H2O. None of the tested settings appear to be optimal (AHI of 19.9/h on the final pressure setting). Oxygen saturation was mildly low. The residual respiratory events were mostly central apneas and Edgar-Alvarado respiration. The patient appeared to have tolerated positive airway pressure therapy fairly well. The patient's sleep efficiency was slightly reduced due to frequent awakenings throughout the night. The sleep architecture was abnormal for sleep fragmentation and lack of slow-wave sleep. There was no periodic leg movement of sleep. Cardiac rhythm was atrial fibrillation with heart rate between 53 and 83 bpm. No abnormal behavior (parasomnia) observed during the night. Conclusions and recommendations: 1. Obstructive sleep apneahypopnea, severe, (AHI was 48.3 in 2014) not effectively controlled with CPAP and BiPAP S due to the residual respiratory events being central apneas and Edgar-Alvarado breathing. This patient, therefore, meets the criteria of having treatmentemergent central sleep apnea or complex sleep apnea. BiPAP S\T is recommended. 2. Atrial fibrillation. Recommend further work-up and treatment as appropriate. Allergies and Home Medications Drug allergies reviewed: Yes (NKDA) Home medication list reviewed: Yes (Eliquis 5 mg twice a day) Review of Systems Review of systems same as previous: Yes (no changes) Physical Exam Vital signs obtained and entered by: Warren CHAN MA Blood Pressure: 100/60 (left arm ) Cuff size: regular Heart Rate: 76 O2 Saturation: 95 Height: 5 ft 9 in Weight: 256 lb Body Mass Index: 37.8 BMI Classification: Obese Impression and Plan 1. Complex Sleep Apnea-Hypopnea Syndrome, severe, with lowest oxygen saturation of 82%. Positive pressure therapy could benefit hypertension, arrhythmia, gastric reflux. Patient was not well controlled on CPAP or BiPAP S during the titration study. He had too many residual respiratory events, mainly central apneas and Edgar-Alvarado breathing not well controlled during the titration. It was recommended that he be started on BIPAP ST therapy to effectively treat his Complex Sleep Apnea-Hypopnea Syndrome. The patient will be started on BiPAP ST therapy with pressure set at 18/12 cmH2O with backup rate of 10. He will follow up one month after obtaining new device to check efficacy and compliance. 2. Atrial fibrillation. Patient with history of Afib on Eliquis. He will follow up with his doctors as needed. 3. Obesity, unspecified. Currently patients BMI is 37.8. Obesity increases the risk of apnea, BIPAP pressure requirements and overall health risks especially cardiovascular and diabetes. Thus patient is advised to lose weight. * Stop CPAP therapy * Start BiPAP ST therapy, pressure at 18/12 cm H2O with backup rate of 10. * Attempt to lose weight. * Avoid alcohol consumption near bedtime. * The patient is again cautioned about driving until sleepiness completely resolves. * Return one month after BIPAP obtained. I will assess response to therapy and compliance at that time. Counseling Topics: Weight loss health impact Prescriptions: BiPAP (ST) Visit Type: In Office Time Spent with Patient (minutes): 22 Provider Statement: I spent 100% of the Face to Face Visit with the patient with greater than 50% spent counseling the patient and coordination of care.
== END 2022-09-14 10:15 | disposition home or self-care (01) ==
LOC: SC 10:14
PROVIDERS: ATTEND Nurse Practitioner Family
DX: G47.39 Other sleep apnea (principal); I48.91 Unspecified atrial fibrillation; E66.9 Obesity, unspecified; Z68.37 Body mass index [BMI] 37.0-37.9, adult; Z79.01 Long term (current) use of anticoagulants
CPT/HCPCS: 99213; G0463; 99212

== ENCOUNTER 2022-09-28 12:04 | Outpatient (CLI) | payer MEDICARE, OTHER ==
[2022-09-28 17:47] LABS: BASOPHILS # (AUTO) 0.1 10^3/uL (0.0-0.1); BASOPHILS % (AUTO) 0.8 %; EOSINOPHILS # (AUTO) 0.2 10^3/uL (0.0-0.7); EOSINOPHILS % (AUTO) 3.2 %; HCT - HEMATOCRIT 48.1 % (42.0-52.0); HGB - HEMOGLOBIN 14.8 g/dL (14.0-18.0); LYMPHOCYTES # (AUTO) 1.3 10^3/uL (1.5-3.5); LYMPHOCYTES % (AUTO) 20.2 %; MEAN CORPUSCULAR HEMOGLOBIN 31.8 pg (27.0-31.0); MEAN CORPUSCULAR HGB CONC 30.8 g/dL (32.0-36.0); MEAN CORPUSCULAR VOLUME 103.4 fL (80.0-94.0); MEAN PLATELET VOLUME 11.1 fL (7.4-11.4); MONOCYTES # (AUTO) 0.7 10^3/uL (0.0-1.0); MONOCYTES % (AUTO) 10.3 %; NEUTROPHILS # (AUTO) 4.3 10^3/uL (1.5-6.6); NEUTROPHILS % (AUTO) 65.2 %; PLT - PLATELET COUNT 111 10^3/uL (130-450); RED BLOOD COUNT 4.65 10^6/uL (4.70-6.10); RED CELL DISTRIBUTION WIDTH 13.5 % (12.0-15.0); WHITE BLOOD COUNT 6.5 x10^3/uL (4.8-10.8)
[2022-09-28 18:20] LABS: ALBUMIN 4.2 g/dL (3.2-5.5); ALBUMIN/GLOBULIN RATIO 1.3 (1.0-2.2); ALKALINE PHOSPHATASE 37 IU/L (42-121); ALT ALANINE AMINOTRANSFERASE 31 IU/L (10-60); AST ASPARTATE AMINOTRANSFERASE 23 IU/L (10-42); BILIRUBIN,TOTAL 0.9 mg/dL (0.2-1.0); BUN - BLOOD UREA NITROGEN 28 mg/dL (6-20); CALCIUM 9.3 mg/dL (8.5-10.3); CARBON DIOXIDE - CO2 26 mmol/L (21-32); CHLORIDE 105 mmol/L (101-111); CHOL/HDL RATIO 2.7 (<5.0); CHOLESTEROL 153 mg/dL; CREATININE 1.6 mg/dL (0.6-1.2); GFR - MDRD 43 (>89); GLUCOSE 118 mg/dL (70-100); HDL CHOLESTEROL 57 mg/dL; LDL CHOLESTEROL,CALCULATED 83 mg/dL; LDL/HDL RATIO 1.5 (<3.6); SODIUM 139 mmol/L (135-145); TOTAL PROTEIN 7.4 g/dL (6.7-8.2); TRIGLYCERIDES 64 mg/dL; VLDL CHOLESTEROL 13 mg/dL
[2022-09-28 20:19] LABS: ESTIMATED AVERAGE GLUCOSE 151 mg/dL (70-100); HEMOGLOBIN A1c% 6.9 % (4.27-6.07)
== END 2022-09-28 12:05 | disposition home or self-care (01) ==
LOC: LAB.N 12:04
PROVIDERS: ATTEND Physician Assistant
DX: I48.0 Paroxysmal atrial fibrillation (principal); E78.5 Hyperlipidemia, unspecified; E11.9 Type 2 diabetes mellitus without complications
CPT/HCPCS: 36415; 80053; 80061; 83036; 83721; 85025

== ENCOUNTER 2022-12-06 08:06 | Emergency (ER) | payer MEDICARE, OTHER ==
[2022-12-06 08:38] LABS: BILIRUBIN,URINE NEGATIVE (NEGATIVE); GLUCOSE, URINE (UA) NEGATIVE (NEGATIVE); KETONES,URINE (UA) NEGATIVE (NEGATIVE); LEUKOCYTE ESTERASE, URINE NEGATIVE (NEGATIVE); NITRITE,URINE NEGATIVE (NEGATIVE); OCCULT BLOOD,URINE MODERATE (NEGATIVE); PH,URINE 5.5 PH (5.0-7.5); PROTEIN,URINE 30 mg/dL (NEGATIVE); UROBILINOGEN,URINE 0.2 (NORMAL) E.U./dL (NORMAL)
[2022-12-06 08:43] LABS: BASOPHILS # (AUTO) 0.1 10^3/uL (0.0-0.1); BASOPHILS % (AUTO) 0.5 %; EOSINOPHILS # (AUTO) 0.1 10^3/uL (0.0-0.7); EOSINOPHILS % (AUTO) 1.3 %; HCT - HEMATOCRIT 48.9 % (42.0-52.0); HGB - HEMOGLOBIN 15.6 g/dL (14.0-18.0); LYMPHOCYTES # (AUTO) 1.6 10^3/uL (1.5-3.5); LYMPHOCYTES % (AUTO) 15.4 %; MEAN CORPUSCULAR HEMOGLOBIN 31.8 pg (27.0-31.0); MEAN CORPUSCULAR HGB CONC 31.9 g/dL (32.0-36.0); MEAN CORPUSCULAR VOLUME 99.6 fL (80.0-94.0); MONOCYTES % (AUTO) 9.8 %; NEUTROPHILS # (AUTO) 7.6 10^3/uL (1.5-6.6); NEUTROPHILS % (AUTO) 72.7 %; PLT - PLATELET COUNT 116 10^3/uL (130-450); RED BLOOD COUNT 4.91 10^6/uL (4.70-6.10); RED CELL DISTRIBUTION WIDTH 13.2 % (12.0-15.0); WHITE BLOOD COUNT 10.5 x10^3/uL (4.8-10.8)
[2022-12-06 08:51] LABS: CLARITY,URINE CLEAR (CLEAR)
[2022-12-06 09:00] LABS: ALBUMIN 3.8 g/dL (3.2-5.5); BILIRUBIN,TOTAL 0.9 mg/dL (0.2-1.0); CALCIUM 9.4 mg/dL (8.5-10.3); CREATININE 1.6 mg/dL (0.6-1.2); POTASSIUM 4.4 mmol/L (3.5-5.0); TOTAL PROTEIN 7.8 g/dL (6.7-8.2)
[2022-12-06 09:05] LABS: WBC CLUMPS,URINE PRESENT
[2022-12-06 09:06] LABS: BACTERIA,URINE Few /HPF (None Seen); SQUAMOUS EPITHELIAL CELL,UR FEW Squamous (<= Few)
[2022-12-06 09:07] LABS: MUCUS,URINE Few Strands
--- NOTE | 2022-12-06 09:32 | ED Physician Documentation ---
PD HPI ABD PAIN - Stated complaint Stated Complaint: MALE - Chief complaint Chief Complaint: Abd Pain - History obtained from History obtained from: Patient - History of Present Illness Timing - onset: How many days ago (3) Timing - duration: Days (3) Timing - details: Gradual onset, Still present Quality: Cramping, Aching, Pain Location: LLQ Radiation: Lower back Improved by: Laying still. No: Eating Worsened by: Moving, Palpation. No: Eating, Breathing Associated symptoms: Nausea, Loss of appetite. No: Fever, Vomiting, Diarrhea, Constipation, Hematochezia, Dysuria Similar symptoms before: Has not had sx before Recently seen: Not recently seen Review of Systems Constitutional: denies: Fever, Chills Nose: denies: Rhinorrhea / runny nose, Congestion Throat: denies: Sore throat Respiratory: denies: Cough GI: reports: Abdominal Pain, Nausea. denies: Vomiting, Constipation, Diarrhea, Bloody / black stool : denies: Dysuria Skin: denies: Rash, Lesions PD PAST MEDICAL HISTORY - Past Medical History Cardiovascular: Hypertension, High cholesterol, Valve disorder (AVR 2019), Other (no history of atrial fib) Respiratory: CPAP use Endocrine/Autoimmune: None GI: None : Benign prostate hypertrophy HEENT: Chronic vision loss Psych: None Musculoskeletal: None Derm: Other - Past Surgical History Past Surgical History: Yes General: Cholecystectomy Ortho: Spine surgery, Other Cardiovascular: Valve replacement (bovine aortic valve 2018) HEENT: Tonsil/Adenoidectomy - Present Medications Home Medications: Ambulatory Orders Medication Instructions Recorded Confirmed Aspirin [Aspirin EC] 81 mg PO DAILY 03/11/21 03/11/21 Losartan [Cozaar] 100 mg PO DAILY 03/11/21 03/14/21 Metoprolol Tartrate [Lopressor] 50 mg PO BID 03/11/21 03/14/21 Rosuvastatin Calcium [Crestor] 40 mg PO DAILY 03/11/21 03/14/21 Tamsulosin HCl [Flomax] 0.4 mg PO DAILY 03/11/21 03/14/21 Apixaban [Eliquis] 5 mg PO BID 30 Days #60 tablet 04/28/22 Furosemide [Lasix] 20 mg PO DAILY 30 Days #30 tablet 04/28/22 Amox/Clav 875/125 [Augmentin] 1 each PO Q12H #10 tablet 12/06/22 Ondansetron Odt [Zofran] 4 mg TL Q6H PRN #15 tablet 12/06/22 dexAMETHasone [Decadron] 4 mg PO DAILY #5 tablet 12/06/22 - Allergies Allergies/Adverse Reactions: Allergies Allergy/AdvReac Type Severity Reaction Status Date / Time No Known Drug Allergies Allergy Verified 12/06/22 08:26 - Social History Does the pt smoke?: No Smoking Status: Never smoker PD ED PE NORMAL - Vitals Vital signs reviewed: Yes - General General: Alert and oriented X 3, No acute distress, Well developed/nourished - Neck Neck: Supple, no meningeal sign, No adenopathy - Cardiac Cardiac: RRR, No murmur - Respiratory Respiratory: Clear bilaterally - Abdomen Abdomen: Normal bowel sounds, Soft, Non distended, No organomegaly, Other (tender LLQ with some mild local guarding. no percussion nor rebound tenderness. ) - Male Male : Deferred - Rectal Rectal: Deferred - Back Back: No CVA TTP - Derm Derm: Normal color, Warm and dry - Extremities Extremities: No edema, No calf tenderness / cord Results - Vitals Vitals: Oxygen O2 Source Room air - Labs Labs: Microbiology 12/06/22 08:29 Urine Culture - Final Urine,Random No growth Laboratory Tests 12/06/22 12/06/22 12/06/22 08:29 08:38 08:38 WBC 10.5 RBC 4.91 Hgb 15.6 Hct 48.9 MCV 99.6 H MCH 31.8 H MCHC 31.9 L RDW 13.2 Plt Count 116 L MPV 10.0 Neut # (Auto) 7.6 H Lymph # (Auto) 1.6 [place] # (Auto) 1.0 Eos # (Auto) 0.1 Baso # (Auto) 0.1 Absolute Nucleated RBC 0.00 Nucleated RBC % 0.0 Sodium 142 Potassium 4.4 Chloride 103 Carbon Dioxide 31 Anion Gap 8.0 BUN 24 H Creatinine 1.6 H Estimated GFR (MDRD) 42 L Glucose 133 H Lactic Acid Calcium 9.4 Total Bilirubin 0.9 AST 20 ALT 31 Alkaline Phosphatase 54 Total Protein 7.8 Albumin 3.8 Globulin 4.0 Albumin/Globulin Ratio 1.0 Lipase 30 Urine Color DARK YELLOW Urine Clarity CLEAR Urine pH 5.5 Ur Specific [place] >=1.030 H Urine Protein 30 H Urine Glucose (UA) NEGATIVE Urine Ketones NEGATIVE Urine Occult Blood MODERATE H Urine Nitrite NEGATIVE Urine Bilirubin NEGATIVE Urine Urobilinogen 0.2 (NORMAL) Ur Leukocyte Esterase NEGATIVE Urine RBC 6-10 H Urine WBC 11-25 H Urine WBC Clumps PRESENT Ur Squamous Epith Cells FEW Squamous Urine Bacteria Few Urine Mucus Few Strands Ur Microscopic Review INDICATED Urine Culture Comments INDICATED 12/06/22 08:43 WBC RBC Hgb Hct MCV MCH MCHC RDW Plt Count MPV Neut # (Auto) Lymph # (Auto) Frederick # (Auto) Eos # (Auto) Baso # (Auto) Absolute Nucleated RBC Nucleated RBC % Sodium Potassium Chloride Carbon Dioxide Anion Gap BUN Creatinine Estimated GFR (MDRD) Glucose Lactic Acid 0.8 Calcium Total Bilirubin AST ALT Alkaline Phosphatase Total Protein Albumin Globulin Albumin/Globulin Ratio Lipase Urine Color Urine Clarity Urine pH Ur Specific [place] Urine Protein Urine Glucose (UA) Urine Ketones Urine Occult Blood Urine Nitrite Urine Bilirubin Urine Urobilinogen Ur Leukocyte Esterase Urine RBC Urine WBC Urine WBC Clumps Ur Squamous Epith Cells Urine Bacteria Urine Mucus Ur Microscopic Review Urine Culture Comments - Rads (name of study) abd/pelvic ct Radiology: Prelim report reviewed (local colitis left lower without obvious diverticulitis. no abscess nor free air. ), See rad report PD Medical Decision Making - ED course Complexity details: reviewed results (acute local colitis, presume initiating around divertulum. no abscess nor perforation. ), re-evaluated patient (he is feeling okay with meds here. ), considered differential (seems c/w diverticulitis, but no history of such and so good to ensure no other abnormalities. consider alternatives of vascular/aortic process, mass, abscess, ureterolithasis. ), d/w patient Drug Therapy Requiring Monitoring for Toxicity: zofran and toradol given iv for symptoms. He declined opioid meds (he is driving home). He is comfortable with that. Departure - Departure Disposition: 01 Home, Self Care Clinical Impression: Abdominal pain, left lower quadrant, Acute colitis Condition: Stable Instructions: ED Diverticulitis Follow-Up: Gabrielle Joyce PA-C [Primary Care Provider] - Prescriptions: Amox/Clav 875/125 [Augmentin] 1 each PO Q12H #10 tablet dexAMETHasone [Decadron] 4 mg PO DAILY #5 tablet Ondansetron Odt [Zofran] 4 mg TL Q6H PRN #15 tablet PRN Reason: Nausea / Vomiting Comments: Your CT scan shows a small area of inflamed colon (colitis). No obvious diverticula per se and certainly no abscess no perforation. Most episodes like this relate to more it originate with a diet for particular and can be inflammatory with some element of bacterial infection. Continue with your usual medications. Stay well-hydrated. Riley food initially and increase as tolerated. Ondansetron if needed for nausea. Since you are on a blood thinner, we will use dexamethasone as an anti- inflammatory for your colitis rather than NSAIDs. Augmentin antibiotic twice daily for 5 days. I would anticipate improvement over the next day or 2 but perhaps 3 days or so for resolution. Use Tylenol every 4-6 hours if needed for pains. Recheck if not improving in the consistent timeframe of the next several days an d return if worse. I sent your prescriptions to [facility] pharmacy in [place]. Discharge Date/Time: 12/06/22 12:34
[2022-12-06] MEDS ORDERED: SODIUM CHLORIDE 0.9% 1,000 ML IV STA (09:59)
[2022-12-06] MEDS ORDERED: ONDANSETRON 4 MG/2 ML VIAL IVP STA (09:59)
[2022-12-06] MEDS ORDERED: iohexoL-300 100 ML VIAL ONE (10:12)
[2022-12-06] MEDS ORDERED: iohexoL-300 100 ML VIAL IVP ONE (10:40)
--- NOTE | 2022-12-06 11:12 | CT Report ---
PROCEDURE: ABDOMEN/PELVIS W INDICATIONS: LLQ abd pain and mucous stools 3 days CONTRAST: 100ml Omnipaque 300 TECHNIQUE: After the administration of IV contrast, 5 mm thick sections acquired from the diaphragms to the symp hysis. 5 mm thick coronal and sagittal reformats were acquired. For radiation dose reduction, the f ollowing was used: automated exposure control, adjustment of mA and/or kV according to patient size. COMPARISON: CT abdomen pelvis 10/13/2021 FINDINGS: Image quality: Excellent. ABDOMEN: Lung bases: Lung bases are clear. Heart size is normal. Solid organs: The spleen is normal in size. Simple hepatic cysts are unchanged. Hepatic steatosis is present. Liver is prominent measuring 17.6 cm. Gallbladder has been removed. Biliary system is non d ilated. Pancreas enhances normally. No adrenal nodules. Kidneys demonstrate mild atrophy with bila teral simple renal cysts. Peritoneum and bowel: Bowel loops are nonobstructive. There is thickening and inflammatory change wi thin the distal descending and sigmoid colon. Minimal diverticular present. No abscess. Nodes and vessels: No retroperitoneal or mesenteric adenopathy by size criteria. Aorta and inferior vena cava are normal in size. Miscellaneous: Fat-containing ventral hernia is present. PELVIS: Genitourinary: Bladder wall thickness is normal. Miscellaneous: Fat-containing inguinal hernias. Bones: No suspicious bony lesions. No vertebral body compression fractures. IMPRESSION: Distal descending and sigmoid thickening with inflammatory change most consistent with colitis. While this may be secondary to diverticulitis and presence of scattered diverticula, other etiologies of i nfection/inflammation should not be excluded. Hepatic steatosis with simple cysts. Simple renal cysts. Reviewed by: Columba Ibarra MD on 12/06/2022 11:11 AM PST Approved by: Columba Ibarra MD on 12/06/2022 11:11 AM PST Station ID: [id number]
[2022-12-06] MEDS ORDERED: AMOX/CLAV 875 MG/125 MG TABLET PO STA (11:51)
[2022-12-06] MEDS ORDERED: KETOROLAC 15 MG/ML VIAL IVP STA (11:51)
[2022-12-06 12:34] VITALS: BP 146/92
== END 2022-12-06 12:34 | disposition home or self-care (01) ==
LOC: ED 08:06
DX: K52.9 Noninfective gastroenteritis and colitis, unspecified (principal); R10.32 Left lower quadrant pain; I10 Essential (primary) hypertension; E78.00 Pure hypercholesterolemia, unspecified; Z95.2 Presence of prosthetic heart valve; Z79.82 Long term (current) use of aspirin; Z79.01 Long term (current) use of anticoagulants; Z79.899 Other long term (current) drug therapy
CPT/HCPCS: 36415; 74177; 80053; 81001; 83605; 83690; 85025; 87086; 96374; 96375; 99284; A9270; Q9967; 81003

== ENCOUNTER 2023-01-23 10:53 | Outpatient (CLI) | payer MEDICARE, OTHER ==
--- NOTE | 2023-01-23 11:23 | SLEEP CARE CONSULTATION ---
Information from patient questionnaire entered by Conecpcion Ryder. I have reviewed and concur with the information entered by Concepcion Ryder. This document represents the service I personally performed and the decisions made by me, Yaa Gunn ARNP. History of Present Illness Service Date and Time: 01/23/2023 1053 Previous diagnosis: Severe, Obstructive Sleep Apnea-Hypopnea Syndrome AHI: 48.3 (in 2014) Reason for follow up: first compliance (with new BIPAP) Equipment type: CPAP (RESMED AirCurve 10 ST, s/u -12/2022) Equipment obtained from: Other ([facility]; getting supplies as needed) Mask style: Full face Mask brand: Resmed (AirTouch F20) Backup mask available: Yes (old mask) Last cushion change: 2 weeks Prior sleep studies: Yes Year and Where: 2014 - [facility] Type of Sleep Study: Polysomnography (F/U TITRATION AT [place]) HPI additional information: MAY LUGO was diagnosed to have severe (complex), AHI 48.3, obstructive sleep apnea-hypopnea syndrome and returned today for BIPAP therapy first compliance with BIPAP follow-up. Sleep Study - Results Type of Sleep Study: Polysomnography (F/U TITRATION AT [place]) Prior sleep studies: Yes Year and Where: 2014 - [facility] Sleep CPAP Compliance Data - Data Reviewed with Patient Average duration of nightly device use: 6 HRS 13 MINS Compliance rate %: 90 (11/20/22-12/09/22; 27/30 days used) Current pressure setting (cmH2O): 18/12 Average residual AHI: 2.7 Subjective Missed days of use due to: reports: other (fall asleep without mask on) Patient concerns: reports: dry mouth, nose, throat. denies: aerophagia, mask discomfort, air blowing in eyes, mask leak noise, condensation in mask/hose, nasal congestion, epistaxis Observed to snore while using device: No Current pressure setting perceived as: comfortable On therapy, patient: reports: sleeping better, awakening more refreshed, being more awake and alert during the day, more rested overall. denies: drowsiness while driving Initial [place] Sleepiness Scale score: 20 (in 2014) Current [place] Sleepiness Scale score: 10 (04/18/23) Allergies and Home Medications Known drug allergies: No Drug allergies reviewed: Yes Home medication list reviewed: Yes (no changes) Allergy and home medication list: Allergies No Known Drug Allergies Allergy (Verified 01/22/23 09:01) Review of Systems Review of systems same as previous: Yes (no changes) Physical Exam Vital signs obtained and entered by: CONCEPCION Cintron MA Blood Pressure: 100/60 (LEFT ARM) Cuff size: regular Heart Rate: 83 O2 Saturation: 97 Height: 5 ft 9 in Weight: 251 lb Body Mass Index: 37.0 BMI Classification: Obese Impression and Plan 1. Complex Sleep Apnea-Hypopnea Syndrome, severe, with good treatment compliance and good apnea control. On BIPAP therapy, the patient has better sleep quality and is more rested overall. Patient has significant improvement of their sleep apnea and is satisfied with current CPAP therapy. Patient happy with current BiPAP settings and is getting good results. He has been getting some readings of large air leaks but has great AHI control. I will have him check that the mask setting is correct for the full face Resmed AirTouch F20 that he is using now. He voiced understanding and will check/adjust this at home on the machine. Patient's apnea severity and rationale for treatment to reduce apnea, improve sleep quality and reduce cardiovascular and cerebrovascular events was reviewed. I also reviewed the benefit of consistent device use of BIPAP for hypertension, arrhythmia and gastric reflux. 2. Obesity, unspecified. Currently patients BMI is 37.0. Obesity increases the risk of apnea, BIPAP pressure requirements and overall health risks especially cardiovascular and diabetes. Thus patient is advised to lose weight. The patient's BIPAP pressure range should accommodate some weight loss. * Continue BIPAP pressure at 18/12 cmH2O * Notify me if snoring with mask or feeling that the pressure is too much or too little * Attempt to lose weight * Call this office if any problems using BIPAP * Return for follow up in 1 year, or sooner if concerns arise Counseling Topics: Spare mask, Weight loss health impact Visit Type: In Office Time Spent with Patient (minutes): 20 Provider Statement: I spent 100% of the Face to Face Visit with the patient with greater than 50% spent counseling the patient and coordination of care.
[2023-01-23 11:27] VITALS: BP 100/60
== END 2023-01-23 10:54 | disposition home or self-care (01) ==
LOC: SC 10:53
PROVIDERS: ATTEND Nurse Practitioner Family
DX: G47.39 Other sleep apnea (principal); E66.9 Obesity, unspecified; Z68.37 Body mass index [BMI] 37.0-37.9, adult
CPT/HCPCS: 99213

== ENCOUNTER 2023-01-26 11:37 | Outpatient (CLI) | payer MEDICARE, OTHER ==
[2023-01-26 18:01] LABS: CREATININE,URINE 128.7 mg/dL; MICROALBUM/CREATININE RATIO,UR 48.2 ug/mg (<30.0); MICROALBUMIN,URINE 6.2 mg/dL (0-300.0)
[2023-01-26 18:03] LABS: BASOPHILS # (AUTO) 0.1 10^3/uL (0.0-0.1); BASOPHILS % (AUTO) 0.8 %; EOSINOPHILS # (AUTO) 0.3 10^3/uL (0.0-0.7); EOSINOPHILS % (AUTO) 4.1 %; HCT - HEMATOCRIT 48.1 % (42.0-52.0); HGB - HEMOGLOBIN 14.9 g/dL (14.0-18.0); LYMPHOCYTES # (AUTO) 1.6 10^3/uL (1.5-3.5); LYMPHOCYTES % (AUTO) 23.8 %; MEAN CORPUSCULAR HEMOGLOBIN 31.5 pg (27.0-31.0); MEAN CORPUSCULAR VOLUME 101.7 fL (80.0-94.0); MEAN PLATELET VOLUME 11.3 fL (7.4-11.4); MONOCYTES # (AUTO) 0.6 10^3/uL (0.0-1.0); MONOCYTES % (AUTO) 9.2 %; NEUTROPHILS % (AUTO) 61.8 %; PLT - PLATELET COUNT 113 10^3/uL (130-450); RED BLOOD COUNT 4.73 10^6/uL (4.70-6.10); RED CELL DISTRIBUTION WIDTH 13.5 % (12.0-15.0); WHITE BLOOD COUNT 6.5 x10^3/uL (4.8-10.8)
[2023-01-26 18:19] LABS: ALBUMIN 3.9 g/dL (3.2-5.5); ALBUMIN/GLOBULIN RATIO 1.3 (1.0-2.2); ALKALINE PHOSPHATASE 46 IU/L (42-121); ALT ALANINE AMINOTRANSFERASE 25 IU/L (10-60); AST ASPARTATE AMINOTRANSFERASE 20 IU/L (10-42); BILIRUBIN,TOTAL 0.6 mg/dL (0.2-1.0); BUN - BLOOD UREA NITROGEN 27 mg/dL (6-20); CALCIUM 9.4 mg/dL (8.5-10.3); CARBON DIOXIDE - CO2 27 mmol/L (21-32); CHLORIDE 108 mmol/L (101-111); CHOL/HDL RATIO 2.8 (<5.0); CHOLESTEROL 147 mg/dL; CREATININE 1.4 mg/dL (0.6-1.2); GFR - MDRD 50 (>89); GLUCOSE 131 mg/dL (70-100); HDL CHOLESTEROL 53 mg/dL; LDL CHOLESTEROL,CALCULATED 75 mg/dL; LDL/HDL RATIO 1.4 (<3.6); POTASSIUM 4.4 mmol/L (3.5-5.0); SODIUM 142 mmol/L (135-145); TOTAL PROTEIN 6.9 g/dL (6.7-8.2); TRIGLYCERIDES 94 mg/dL; VLDL CHOLESTEROL 19 mg/dL
[2023-01-26 21:43] LABS: ESTIMATED AVERAGE GLUCOSE 151 mg/dL (70-100); HEMOGLOBIN A1c% 6.9 % (4.27-6.07)
== END 2023-01-26 11:38 | disposition home or self-care (01) ==
LOC: LAB.N 11:37
PROVIDERS: ATTEND Physician Assistant
DX: E11.22 Type 2 diabetes mellitus with diabetic chronic kidney disease (principal); N18.32 Chronic kidney disease, stage 3b
CPT/HCPCS: 36415; 80053; 80061; 82043; 82570; 83036; 83721; 84300; 85025

== ENCOUNTER 2023-06-22 17:19 | Emergency (ER) | payer MEDICARE, OTHER ==
[2023-06-22 17:50] LABS: BASOPHILS % (AUTO) 0.5 %; EOSINOPHILS # (AUTO) 0.1 10^3/uL (0.0-0.7); EOSINOPHILS % (AUTO) 1.8 %; HCT - HEMATOCRIT 48.8 % (42.0-52.0); HGB - HEMOGLOBIN 15.8 g/dL (14.0-18.0); LYMPHOCYTES # (AUTO) 1.5 10^3/uL (1.5-3.5); LYMPHOCYTES % (AUTO) 18.5 %; MEAN CORPUSCULAR HEMOGLOBIN 31.9 pg (27.0-31.0); MEAN CORPUSCULAR HGB CONC 32.4 g/dL (32.0-36.0); MEAN CORPUSCULAR VOLUME 98.6 fL (80.0-94.0); MEAN PLATELET VOLUME 10.6 fL (7.4-11.4); MONOCYTES # (AUTO) 0.8 10^3/uL (0.0-1.0); MONOCYTES % (AUTO) 9.6 %; NEUTROPHILS # (AUTO) 5.5 10^3/uL (1.5-6.6); NEUTROPHILS % (AUTO) 69.5 %; PLT - PLATELET COUNT 103 10^3/uL (130-450); RED BLOOD COUNT 4.95 10^6/uL (4.70-6.10); RED CELL DISTRIBUTION WIDTH 13.8 % (12.0-15.0); WHITE BLOOD COUNT 7.9 x10^3/uL (4.8-10.8)
[2023-06-22 17:55] LABS: BILIRUBIN,URINE NEGATIVE (NEGATIVE); GLUCOSE, URINE (UA) NEGATIVE (NEGATIVE); KETONES,URINE (UA) NEGATIVE (NEGATIVE); LEUKOCYTE ESTERASE, URINE NEGATIVE (NEGATIVE); NITRITE,URINE NEGATIVE (NEGATIVE); OCCULT BLOOD,URINE MODERATE (NEGATIVE); PH,URINE 5.5 PH (5.0-7.5); PROTEIN,URINE NEGATIVE (NEGATIVE); UROBILINOGEN,URINE 0.2 (NORMAL) E.U./dL (NORMAL)
--- OUTSIDE RECORDS SUMMARY | 2023-06-22 17:56 | EXTERNAL MEDICAL SUMMARY RPT | Continuity of Care Document ---
Author Name Unknown Address [address] [place] [address] Phone Organization [facility] Address [address] [place] [address] Phone Problems date description facility 2023-05-22 16:51 Radiculopathy, [facility] 2023-05-22 17:01 Radiculopathy, [facility]Labs test date facility value unit notes
[2023-06-22 18:04] LABS: ALBUMIN 4.4 g/dL (3.2-5.5); ALBUMIN/GLOBULIN RATIO 1.8 (1.0-2.2); BILIRUBIN,TOTAL 0.9 mg/dL (0.2-1.0); CALCIUM 9.9 mg/dL (8.5-10.3); CREATININE 2.2 mg/dL (0.6-1.3); POTASSIUM 4.5 mmol/L (3.5-4.5); TOTAL PROTEIN 6.8 g/dL (6.4-8.9)
[2023-06-22 18:08] LABS: CLARITY,URINE CLEAR (CLEAR)
[2023-06-22 18:13] LABS: BACTERIA,URINE Rare /HPF (None Seen); SQUAMOUS EPITHELIAL CELL,UR FEW Squamous (<= Few); WBC,URINE 0-3 /HPF (0-3)
[2023-06-22] MEDS ORDERED: SODIUM CHLORIDE 0.9% 1,000 ML IV STA (18:51)
[2023-06-22] MEDS ORDERED: HYDROmorphone 1 MG/ML CARPUJECT IVP STA (19:02)
[2023-06-22] MEDS ORDERED: TAMSULOSIN 0.4 MG CAPSULE PO STA (19:03)
--- NOTE | 2023-06-22 19:07 | ED Physician Documentation ---
History of Present Illness - Stated complaint Stated Complaint: L SIDE PX - Chief complaint Chief Complaint: Abd Pain - Additonal information Additional information: 72-year-old male presents to the emergency department for evaluation of acute left flank and low back pain that began at 2 PM. Described as sharp throbbing and nonradiating. He states that his urine has been darker than normal but no ange hematuria. No fevers no vomiting. Patient does have a history of hypertension and an aortic valve replacement. History of A-fib and on Eliquis. Was seen in this emergency department in December for left-sided abdominal pain found to have colitis. Review of Systems Constitutional: denies: Fever, Chills Throat: reports: Reviewed and negative Cardiac: reports: Reviewed and negative Respiratory: reports: Reviewed and negative GI: reports: Abdominal Pain. denies: Nausea, Vomiting, Hematemesis, Bloody / black stool : reports: Reviewed and negative Skin: reports: Reviewed and negative PD PAST MEDICAL HISTORY - Past Medical History Cardiovascular: Hypertension, High cholesterol, Valve disorder (AVR 2018), Other (no history of atrial fib) Respiratory: CPAP use Neuro: None Endocrine/Autoimmune: None GI: None : Benign prostate hypertrophy HEENT: Chronic vision loss Psych: None Musculoskeletal: None Derm: Other - Past Surgical History Past Surgical History: Yes General: Cholecystectomy Ortho: Spine surgery, Other Cardiovascular: Valve replacement (bovine aortic valve 2018) HEENT: Tonsil/Adenoidectomy - Present Medications Home Medications: Ambulatory Orders Medication Instructions Recorded Confirmed Aspirin [Aspirin EC] 81 mg PO DAILY 03/11/21 06/22/23 Losartan [Cozaar] 100 mg PO DAILY 03/11/21 06/22/23 Metoprolol Tartrate [Lopressor] 50 mg PO BID 03/11/21 06/22/23 Rosuvastatin Calcium [Crestor] 40 mg PO DAILY 03/11/21 06/22/23 Tamsulosin HCl [Flomax] 0.4 mg PO DAILY 03/11/21 06/22/23 Apixaban [Eliquis] 5 mg PO BID 30 Days #60 tablet 04/28/22 06/22/23 Furosemide [Lasix] 20 mg PO DAILY 30 Days #30 tablet 04/28/22 06/22/23 oxyCODONE [Roxicodone] 5 mg PO TID PRN #15 tablet 06/22/23 - Allergies Allergies/Adverse Reactions: Allergies Allergy/AdvReac Type Severity Reaction Status Date / Time No Known Drug Allergies Allergy Verified 01/23/23 11:07 - Social History Does the pt smoke?: No Smoking Status: Never smoker Does the pt drink ETOH?: No Does the pt have substance abuse?: No - Immunizations Immunizations: TDAP >10years/unknown - POLST Patient has POLST: No PD ED PE NORMAL - General General: Alert and oriented X 3, No acute distress, Well developed/nourished - HEENT HEENT: Atraumatic, Moist mucous membranes - Neck Neck: Supple, no meningeal sign, No adenopathy - Cardiac Cardiac: RRR, No murmur - Respiratory Respiratory: No respiratory distress, Clear bilaterally - Abdomen Abdomen: Normal bowel sounds, Soft. No: Non tender (Focal tenderness of the left flank and low back. No guarding or rebound. Nonperitoneal.) - Derm Derm: Normal color, Warm and dry - Extremities Extremities: No deformity - Neuro Neuro: Alert and oriented X 3 Eye Opening: Spontaneous Motor: Obeys Commands Verbal: Oriented GCS Score: 15 Results - Vitals Vitals: Vital Signs - 24 hr 06/22/23 06/22/23 17:26 19:28 Temperature 36.8 C Heart Rate 71 71 Respiratory 20 17 Rate Blood Pressure 135/80 H 142/101 H O2 Saturation 98 99 Oxygen O2 Source Room air - Labs Labs: Laboratory Tests 06/22/23 06/22/23 06/22/23 17:40 17:44 17:44 WBC 7.9 RBC 4.95 Hgb 15.8 Hct 48.8 MCV 98.6 H MCH 31.9 H MCHC 32.4 RDW 13.8 Plt Count 103 L MPV 10.6 Neut # (Auto) 5.5 Lymph # (Auto) 1.5 [place] # (Auto) 0.8 Eos # (Auto) 0.1 Baso # (Auto) 0.0 Absolute Nucleated RBC 0.00 Nucleated RBC % 0.0 Sodium 143 Potassium 4.5 Chloride 109 Carbon Dioxide 25 Anion Gap 9.0 BUN 38 H Creatinine 2.2 H Estimated GFR (MDRD) 29 L Glucose 130 H Calcium 9.9 Total Bilirubin 0.9 AST 22 ALT 29 Alkaline Phosphatase 47 Total Protein 6.8 Albumin 4.4 Globulin 2.4 Albumin/Globulin Ratio 1.8 Lipase 15 Urine Color YELLOW Urine Clarity CLEAR Urine pH 5.5 Ur Specific [place] 1.025 Urine Protein NEGATIVE Urine Glucose (UA) NEGATIVE Urine Ketones NEGATIVE Urine Occult Blood MODERATE H Urine Nitrite NEGATIVE Urine Bilirubin NEGATIVE Urine Urobilinogen 0.2 (NORMAL) Ur Leukocyte Esterase NEGATIVE Urine RBC 11-25 H Urine WBC 0-3 Ur Squamous Epith Cells FEW Squamous Urine Bacteria Rare Ur Microscopic Review INDICATED Urine Culture Comments NOT INDICATED - Rads (name of study) retroperioneal US Relevant Findings:: Prelim report reviewed, Other PD Medical Decision Making - ED course Complexity details: reviewed results, re-evaluated patient, d/w patient ED course: 72-year-old male presents emergency department for evaluation of acute left flank and low back pain that began at 2 PM. No fevers or vomiting. He has previously been seen in the past by urology for concerns of prostate issues and is already on Flomax was previously seen by Dr. Shady Ahumada in [place]. Today on exam he had some focal tenderness left lower abdomen that did not radiate. Did obtain CBC, electrolytes and a UA. Per my interpretation no leukocytosis. Electrolytes do reveal mildly worsened chronic kidney disease with a creatinine today of 2.4. Here in the ER we did give him a liter of fluids. Clinically given the hematuria on his urinalysis I was suspicious for renal or ureter colic. Unfortunately CT scanner is not available today at [facility]. I discussed this with the patient. We elected to perform a retroperitoneal ultrasound to evaluate the kidneys as well as the aorta. Per the histotechnologist supervisor no findings of aortic dissection or AAA. The left kidney has 2 very large simple appearing cyst but no findings of hydronephrosis. In the ER the patient was given a liter of IV fluids as well as Dilaudid. On reevaluation he is feeling much more comfortable. This time he does feel ready for discharge home. He is advised to continue his usual medications including the Flomax. However we did discuss that if his symptoms did not markedly improve over the next 24 to 48 hours, or he develop fevers, worsening pain vomiting he will return immediately to the ER. He is also going to follow closely with his urologist Dr. Shady Ahumada. I am prescribing a short course of short-acting opioid pain medication for this patient. I have reviewed the patients [employer]GER and no concerning findings were noted. I have discussed that the opioids are for short term therapy only, and will not be refilled from the ED. Departure - Departure Disposition: 01 Home, Self Care Clinical Impression: GAETANO (acute kidney injury), Lower abdominal pain, Kidney cysts Hematuria Qualifiers: Hematuria type: other microscopic Qualified Code(s): R31.29 - Other microscopic hematuria; R31.2 - Other microscopic hematuria Condition: Stable Instructions: ED Flank Pain Uncertain Cause Follow-Up: Shady Ahumada MD [Provider Admit Priv/Credential] - Prescriptions: oxyCODONE [Roxicodone] 5 mg PO TID PRN #15 tablet PRN Reason: Pain Comments: You came to the emergency department today because you began to have some pain in your left low abdominal and back area. Your labs today show that you have blood in your urine but no signs of infection. Your hemoglobin and white count were normal. You do have an elevated BUN and creatinine in comparison to the previous kidney labs that you have had. Here in the emergency department we did Give you some IV fluids as well as pain medicine and you are feeling better. CT scanner was not available today in the emergency department. Alternatively we did do an ultrasound of both your kidneys. This was to evaluate for swelling in the kidneys with what we suspect to be a kidney stone as the cause of your pain. There was no hydronephrosis or swelling of the kidneys. You do have 2 large simple appearing cysts in your left kidney. At this point I would like you to stay well-hydrated. I have sent a prescription for oxycodone to the [facility] in [place]. This can be used 2-3 times a day for pain. Alternatively you can continue with Tylenol. However if your symptoms are worsening in any way, you develop fevers, have uncontrolled vomiting or feel that the symptoms or not improving as anticipated please return immediately to the ER. It is important that you follow-up closely with Dr. Ahumada your urologist for further evaluation of your bloody urine as well as the kidney cysts and our suspicion of kidney stones. Is also important that you have your labs rechecked this week to ensure that your kidney function is improving. Forms: PCP List
[2023-06-22] MEDS ORDERED: oxyCODONE/ACET 5/325 Prepack 4 PO STA (20:32)
[2023-06-22 20:44] VITALS: BP 138/90; O2SAT 98
--- NOTE | 2023-06-22 21:04 | Ultrasound Report ---
PROCEDURE: Retroperitoneal Limited INDICATIONS: left flank pain; ? renal colic; look at aorta TECHNIQUE: Real-time scanning was performed of the retroperitoneal organs, with image documentation. COMPARISON: Prior abdominal ultrasound, 11/18/[address], 12/06/2022. FINDINGS: Kidneys: Kidneys are normal in size. Right kidney measures 12 cm long; left kidney measures 13 cm l cedric. Right renal cortical thickness is 1.4 cm; left renal cortical thickness is 1.3 cm. No solid ma sses, hydronephrosis, or nephrolithiasis. Simple appearing bilateral renal cysts are again seen. Miscellaneous: No free abdominal fluid. The aorta demonstrates normal caliber, without acute abnormality seen. IMPRESSION: Normal appearing kidneys, without hydronephrosis. Normal-appearing aorta, without aneurysm. Numerous simple appearing bilateral renal cysts are again seen. Reviewed by: Ho Ramos MD on 06/22/2023 8:03 PM SHIRLEY Approved by: Ho Ramos MD on 06/22/2023 8:03 PM SHIRLEY Station ID: [id number]
== END 2023-06-22 20:54 | disposition home or self-care (01) ==
LOC: ED 17:19
DX: N18.9 Chronic kidney disease, unspecified (principal); N17.9 Acute kidney failure, unspecified; N28.1 Cyst of kidney, acquired; R31.29 Other microscopic hematuria
CPT/HCPCS: 36415; 76775; 80053; 81001; 83690; 85025; 96361; 96374; 99284; A9270; J1170; 81003; 87086

== ENCOUNTER 2023-06-27 08:00 | Outpatient (CLI) | payer MEDICARE, OTHER | END 2023-06-27 23:59 | disposition home or self-care (01) | LOC: LAB 08:00 | PROVIDERS: ATTEND Urology | DX: R31.9 Hematuria, unspecified (principal) | CPT/HCPCS: 87086 ==

== ENCOUNTER 2023-07-11 13:04 | Outpatient (CLI) | payer MEDICARE, OTHER ==
[2023-07-11] MEDS ORDERED: iohexoL-300 100 ML VIAL IVP ONE (13:27)
--- NOTE | 2023-07-12 13:35 | CT Report ---
PROCEDURE: IVP INDICATIONS: HEMATURIA CONTRAST: 140ml omni 300 TECHNIQUE: After the administration of intravenous contrast, 5 mm thick sections acquired from the diaphragms to the symphysis. 5 mm thick coronal and sagittal reformats were acquired. For radiation dose reducti on, the following was used: automated exposure control, adjustment of mA and/or kV according to buzz ent size. COMPARISON: CT of abdomen and pelvis, 12/06/2009 23. Ultrasound abdomen, 11/18/2021. FINDINGS: Image quality: Excellent. Urinary system: Both kidneys are normal in size. Mild left hydronephrosis and hydroureter. No obstru ctive stones. There is mild thickening in the left bladder base involving the left UVJ. There are multiple bilateral simple appearing renal cysts. No solid masses or complex cysts which req uire follow up. The opacified renal calyces and ureters appear normal, without filling defect. OTHER Lung bases and heart: Unremarkable. Heart size is moderately enlarged. There is an aortic valve pros thesis. Liver: A couple of hypodense nodules in the left hepatic lobe measuring 2 cm in the distal 0.6 cm, li grecia cysts. A 0.5 cm subcapsular hypodense nodule in the right hepatic lobe is also likely a cyst. Mi ld hepatic steatosis. No solid mass. Gallbladder and biliary tree: Gallbladder is surgically removed. No biliary dilation. Spleen: No splenomegaly. Pancreas: No pancreatic ductal dilation. Adrenals: No adrenal nodule. Bowel and peritoneum: No bowel distension. No pathologic free fluid. Scattered colonic diverticula. N o acute diverticulitis. Abdominal Lymph nodes: No central or retroperitoneal adenopathy. Vessels: Unremarkable. Reproductive organs: Prostate is mildly prominent in size. There are metallic densities at the base o f the prostate.. Pelvic Lymph nodes: Unremarkable. Bones: No aggressive osseous abnormality. Other: There is a fat-containing right inguinal hernia. IMPRESSION: 1. Mild left hydronephrosis and hydroureter with obstruction at the level of the left UVJ. There is f ocal soft tissue thickening in the bladder base involving the left trigone area and UVJ. Cannot rule out uroepithelial neoplasm. Recommend cystoscopy for further evaluation. 2. No nephrolithiasis. 3. Bilateral simple appearing renal cysts. 4. Diverticulosis without acute diverticulitis. Reviewed by: Matt Alvarado MD on 07/12/2023 1:34 PM PDT Approved by: Matt Alvarado MD on 07/12/2023 1:34 PM PDT Station ID: [id number]
== END 2023-07-11 13:05 | disposition home or self-care (01) ==
LOC: DI 13:04
PROVIDERS: ATTEND Urology
DX: R31.9 Hematuria, unspecified (principal); N28.1 Cyst of kidney, acquired; K57.30 Diverticulosis of large intestine without perforation or abscess without bleeding; N13.30 Unspecified hydronephrosis; N32.89 Other specified disorders of bladder
CPT/HCPCS: 74178; Q9967

== ENCOUNTER 2023-08-13 07:58 | Day surgery (SDC) | payer MEDICARE, OTHER ==
[2023-08-13] MEDS ORDERED: LACTATED RINGERS 1,000 ML IV ONE (08:25)
[2023-08-13] MEDS ORDERED: iohexoL-240 10 ML VIAL IVP ONE ×2 (08:48→10:12)
[2023-08-13] MEDS ORDERED: BUPIVACAINE 0.25% PF 30 ML VIAL ONE (08:49)
[2023-08-13] MEDS ORDERED: LIDOCAINE 2% URO-JET 5 ML SYRINGE UR ONE (09:21)
[2023-08-13] MEDS ORDERED: MORPHINE 2 MG/ML CARPUJECT IVP PRN (09:25)
[2023-08-13] MEDS ORDERED: HYDROmorphone 0.5 MG/0.5 ML SYRINGE IVP PRN (09:25)
[2023-08-13] MEDS ORDERED: ONDANSETRON 4 MG/2 ML VIAL IVP PRN ×2 (09:25→10:37)
[2023-08-13] MEDS ORDERED: ATROPINE ABBOJECT 1 MG/10 ML SYRINGE IVP PRN (09:25)
[2023-08-13] MEDS ORDERED: METOCLOPRAMIDE 10 MG/2 ML VIAL IVP PRN (09:25)
[2023-08-13] MEDS ORDERED: fentaNYL 100 MCG/2 ML VIAL IVP PRN (09:25)
[2023-08-13] MEDS ORDERED: NALOXONE 0.4 MG/ML VIAL IVP PRN (09:25)
[2023-08-13] MEDS ORDERED: ePHEDrine 50 MG/ML VIAL IVP PRN (09:25)
--- NOTE | 2023-08-13 09:25 | ANESTHESIA ---
Pre-Anesthesia VS, & Labs - Diagnosis L URETERAL OBSTRUCTION - Procedure L CYSTOSCOPY, POSSIBLE STENT, POSSIBLE RESECTION Vital Signs: Temp Pulse Resp BP Pulse Ox O2 Flow Rate 36.1 C L 68 16 116/92 H 98 08/13/23 08:26 08/13/23 08:26 08/13/23 08:26 08/13/23 08:26 08/13/23 08:26 Height: 5 ft 9 in Weight (kg): 110.9 kg Body Mass Index: 36.1 BMI Classification: Obese - NPO >8 hours - Lab Results Current Lab Results: Laboratory Tests 08/13/23 08:33: POC Whole Bld Glucose 113 H Home Medications and Allergies Home Medications: Ambulatory Orders Amlodipine Besylate [Norvasc] 2.5 mg PO DAILY 08/07/23 Cetirizine HCl [Allergy] 10 mg PO DAILY 08/07/23 Famotidine [Pepcid] 20 mg PO BID PRN 08/07/23 Furosemide [Lasix] 10 mg PO DAILY 08/07/23 Magnesium Oxide [Mag-Oxide] 300 mg PO DAILY 08/07/23 Multivitamin 1 each PO DAILY 08/07/23 metFORMIN [Glucophage] 500 mg PO DAILY 08/07/23 Active Medications Cefazolin Sodium 3 gm/ Sodium (Chloride) 50 mls @ 100 mls/hr IV ONCE ONE Stop: 08/13/23 09:29 Losartan [Cozaar] 100 mg PO DAILY 03/11/21 Metoprolol Tartrate [Lopressor] 50 mg PO BID 03/11/21 Rosuvastatin Calcium [Crestor] 40 mg PO QPM 03/11/21 Amlodipine Besylate [Norvasc] 2.5 mg PO DAILY 08/07/23 Cetirizine HCl [Allergy] 10 mg PO DAILY 08/07/23 Famotidine [Pepcid] 20 mg PO BID PRN 08/07/23 Furosemide [Lasix] 10 mg PO DAILY 08/07/23 Magnesium Oxide [Mag-Oxide] 300 mg PO DAILY 08/07/23 Multivitamin 1 each PO DAILY 08/07/23 metFORMIN [Glucophage] 500 mg PO DAILY 08/07/23 Allergies/Adverse Reactions: Allergies Allergy/AdvReac Type Severity Reaction Status Date / Time No Known Drug Allergies Allergy Verified 08/13/23 08:42 Anes History & Medical History - Anesthetic History Anesthesia Complications: reports: No previous complications Family history of Anesthesia Complications: Denies Family history of Malignant Hyperthermia: Denies - Medical History Cardiovascular: reports: Hypertension, High cholesterol, Atrial fibrillation, Murmur, Valve disorder, Other Pulmonary: reports: Sleep apnea, Other Gastrointestinal: reports: GERD, Pancreatitis Urinary: reports: Benign prostate hypertrophy Neuro: reports: None Musculoskeletal: reports: None Endocrine/Autoimmune: reports: Type 2 diabetes, Other Blood Disorders: reports: None Skin: reports: Other Smoking Status: Never smoker - Surgical History General: reports: Cholecystectomy, Colonoscopy Eyes Ears Nose Throat (EENT): reports: Tonsil/Adenoidectomy Cardiothoracic: reports: Valve replacement Orthopedic: reports: Spine surgery, Other Exam General: Alert, Oriented x3, Cooperative Dental: WNL Mouth Openin Fingerbreadth Neck Mobility: Normal Mallampati classification: II Thyromental Distance: 4-6 cm Respiratory: Lungs clear Cardiovascular: Other (controlled AFib) Plan Anesthesia Type: General Consent for Procedure(s) Verified and Reviewed: Yes Code Status: Attempt Resuscitation ASA classification: 3-Severe systemic disease Is this case an emergency?: No
[2023-08-13] MEDS ORDERED: LIDOCAINE JELLY 2% 6 ML JEL.PF.APP UR ONE (09:27)
[2023-08-13] MEDS ORDERED: PHENYLEPHRINE HCL 0.5 MG/5 ML AMPULE ONE (09:55)
[2023-08-13] MEDS ORDERED: ONDANSETRON 4 MG/2 ML VIAL ONE (09:56)
[2023-08-13] MEDS ORDERED: DEXAMETHASONE 4 MG/ML VIAL ONE (09:56)
[2023-08-13] MEDS ORDERED: LACTATED RINGERS 1,000 ML IV SCH (10:00)
[2023-08-13] MEDS ORDERED: PROPOFOL 200 MG/20 ML VIAL IVP ONE (10:01)
[2023-08-13] MEDS ORDERED: LIDOCAINE-PF 2% 10 ML AMP SUBQ ONE (10:01)
[2023-08-13] MEDS ORDERED: fentaNYL 100 MCG/2 ML VIAL ONE (10:01)
[2023-08-13] MEDS ORDERED: MIDAZOLAM 2 MG/2 ML VIAL ONE (10:01)
[2023-08-13] MEDS ORDERED: ePHEDrine 50 MG/ML VIAL IVP ONE (10:07)
[2023-08-13] MEDS ORDERED: LACTATED RINGERS 400 ML IV ONE (10:34)
[2023-08-13] MEDS ORDERED: HYDROcod/ACETAM 5/325 MG TABLET PO PRN (10:37)
--- NOTE | 2023-08-13 10:44 | Discharge Plan ---
Discharge Plan Problem Reviewed?: Yes Disposition: Home, Self Care Condition: Good Prescriptions: Docusate Sodium 100Mg Capsule [Colace 100Mg Capsule] 100 mg PO DAILY #10 cap cephALEXin [Keflex] 500 mg PO ONCE #1 cap HYDROcod/ACETAM 5/325 [Retsof 5/325] 1 tab PO Q4H PRN #10 tablet PRN Reason: Pain Diet: Regular Activity Restrictions: No Restrictions Shower Restrictions: No Driving Restrictions: No Instruction Topics: Stents Ureteral Additional Instructions or Follow Up instructions: You have a ureteral stent in place. This will tickle your bladder and make you feel like you have to urinate more frequently and more urgently. This is normal. You will also notice blood in your urine which will likely persist for the next month or even two You will be contacted for follow-up in 3 weeks. We will discuss the results of the pathology then. We will also perform a cystoscopy and removal of your stent in the office at that time. No Smoking: If you smoke, Please STOP! Call for help. Follow-up with: Gabrielle Joyce PA-C [Primary Care Provider] - Shady Ahumada MD [Provider Admit Priv/Credential] -
--- NOTE | 2023-08-13 10:46 | OPERATIVE REPORT ---
Operative Report - General Procedure Date: 08/13/23 Planned Procedure: Cystoscopy, left ureteroscopy, possible biopsy, possible stent, possible transurethral resection of bladder tumor Pre-Op Diagnosis: Left ureteral obstruction Procedure Performed: Cystoscopy, left ureteroscopy, retrograde pyelogram, ureteral biopsy, stent, transurethral resection of bladder tumor 1cm Post Op Diagnosis: left ureteral obstruction - Procedure Note Primary Surgeon: Brandyn Anesthesia Provider: KISHORE Pathology: Bladder urine cytology left kidney urine cytology bladder biopsy Estimated Blood Loss (mL): 1 Findings: Left hemitrigone scarred, fold of tissue looked like UO but was not Resected this area, mucosal island found biopsy of distal left ureteral tissue stent placed on left Complications: none - Other Other Information/Narrative: After informed consent was obtained the patient was brought to the OR and laid in the supine position. He was then anesthetized per anesthesia protocols and prepped and draped in the usual sterile fashion in the dorsolithotomy position. A timeout was performed reconfirming the patient, procedure and laterality. A 22 Cymro cystoscope was advanced easily into the urinary bladder. He was noted to have some mild constriction of his urethra in the pendulous and bulbar areas. His prostate was not significantly obstructive. His bladder showed a few cellules. His right UO was orthotopic and appeared completely normal. His left trigone appeared slightly raised and blanched consistent with scar tissue. A fold of tissue appeared to be the left UO however a sensor wire probing it showed that this was either not the UO or if it was the UO then it was completely obstructed. A specimen of urine was sent as bladder cytology. Using a 26 Cymro resectoscope with loop electrocautery and the bipolar setting we resected this left hemitrigone. This was approximately a 1 cm x 0.5 cm segment. That specimen was sent for analysis as bladder biopsy. A mucosal island was identified. A sensor wire was placed this up into the kidney. A gentle retrograde pyelogram confirmed we were in the kidney and this area had severe hydronephrosis. A short semirigid ureteroscope was advanced over the wire into the distal ureter. Urine from the distal ureter coming down from the kidney was sent for urine cytology. The urine appeared slightly bloody and old appearing. The distal ureter did not show any obvious tumors but it did appear to be old scar tissue. Multiple biopsies of this were sent for analysis. A 6 Cymro 28 cm double-J ureteral stent was placed with good curling noted in the kidney and good curling noted in the bladder. The bladder was inspected and full there were no other masses, lesions or other concerns. The bladder was emptied and a Uro-Jet was placed. This concluded the procedure patient tolerated the procedure well was brought to PACU that further incident. All counts were correct. He will follow-up in 3 weeks time for stent removal and pathology discussion.
[2023-08-13 11:14] VITALS: BP 125/78; O2SAT 95
--- NOTE | 2023-08-13 12:17 | ANESTHESIA POST OP EVALUATION ---
Anesthesia Post Eval - Post Anesthesia Eval Vitals: Last Vital Signs Temp 36.3 C L 08/13/23 10:34 Pulse 61 08/13/23 11:11 Resp 18 08/13/23 11:11 BP 125/78 08/13/23 11:11 Pulse Ox 95 08/13/23 11:11 O2 Flow Rate CV Function Including HR & BP: Stable Pain Control: Satisfactory Nausea & Vomiting: Negative Mental Status: Baseline Respiratory Status: Airway Patent Hydration Status: Satisfactory Anesthesia Complications: None
--- NOTE | 2023-08-13 17:25 | XRAY Report ---
PROCEDURE: OR C-Arm Procedure INDICATIONS: CYSTOSCOPY; STENT PLACEMENT FLUORO TIME: 0.2 MIN TECHNIQUE: Intraoperative fluoroscopic images were obtained of the abdomen and pelvis. COMPARISON: 07/11/2023 CT Findings and impression: Please see operative note for full details. Intraoperative images were obtained. A left ureter stent is partially seen. Reviewed by: Kd Arthur MD on 08/13/2023 5:23 PM PST Approved by: Kd Arthur MD on 08/13/2023 5:23 PM PST Station ID: [id number]
== END 2023-08-13 07:59 | disposition home or self-care (01) ==
LOC: SDS 07:58
PROVIDERS: ATTEND Urology
PROC: 0TB78ZX Excision of Left Ureter, Via Natural or Artificial Opening Endoscopic, Diagnostic (ICD-10-PCS; 2023-08-13)
PROC: 0T9780Z Drainage of Left Ureter with Drainage Device, Via Natural or Artificial Opening Endoscopic (ICD-10-PCS; 2023-08-13)
PROC: 0TBB8ZX Excision of Bladder, Via Natural or Artificial Opening Endoscopic, Diagnostic (ICD-10-PCS; principal; 2023-08-13 09:45)
DX: D09.0 Carcinoma in situ of bladder (principal); C66.2 Malignant neoplasm of left ureter; N13.1 Hydronephrosis with ureteral stricture, not elsewhere classified; N40.0 Benign prostatic hyperplasia without lower urinary tract symptoms; E11.9 Type 2 diabetes mellitus without complications; I48.91 Unspecified atrial fibrillation; E66.9 Obesity, unspecified; Z79.01 Long term (current) use of anticoagulants; Z68.36 Body mass index [BMI] 36.0-36.9, adult
CPT/HCPCS: 52234; 52332; 52354; C1758; J2372; J7040; J7120; Q9966

== ENCOUNTER 2023-08-25 16:26 | Emergency (ER) | payer MEDICARE, OTHER ==
[2023-08-25 16:36] VITALS: BP 108/61; O2SAT 98
[2023-08-25 18:19] LABS: BASOPHILS % (AUTO) 0.6 %; EOSINOPHILS # (AUTO) 0.2 10^3/uL (0.0-0.7); EOSINOPHILS % (AUTO) 3.3 %; HCT - HEMATOCRIT 44.7 % (42.0-52.0); LYMPHOCYTES # (AUTO) 1.9 10^3/uL (1.5-3.5); LYMPHOCYTES % (AUTO) 28.6 %; MEAN CORPUSCULAR HEMOGLOBIN 31.2 pg (27.0-31.0); MEAN CORPUSCULAR HGB CONC 31.3 g/dL (32.0-36.0); MEAN CORPUSCULAR VOLUME 99.6 fL (80.0-94.0); MEAN PLATELET VOLUME 10.3 fL (7.4-11.4); MONOCYTES # (AUTO) 0.8 10^3/uL (0.0-1.0); MONOCYTES % (AUTO) 11.6 %; NEUTROPHILS # (AUTO) 3.7 10^3/uL (1.5-6.6); NEUTROPHILS % (AUTO) 55.6 %; PLT - PLATELET COUNT 126 10^3/uL (130-450); RED BLOOD COUNT 4.49 10^6/uL (4.70-6.10); RED CELL DISTRIBUTION WIDTH 13.3 % (12.0-15.0); WHITE BLOOD COUNT 6.6 x10^3/uL (4.8-10.8)
[2023-08-25 18:23] LABS: INR 1.5 (0.8-1.2); PT - PROTHROMBIN TIME 15.8 secs (9.9-12.6)
[2023-08-25 18:34] LABS: ALBUMIN 4.2 g/dL (3.2-5.5); ALBUMIN/GLOBULIN RATIO 1.7 (1.0-2.2); BILIRUBIN,TOTAL 0.8 mg/dL (0.2-1.0); CALCIUM 9.6 mg/dL (8.5-10.3); CREATININE 2.2 mg/dL (0.6-1.3); POTASSIUM 4.4 mmol/L (3.5-4.5); TOTAL PROTEIN 6.7 g/dL (6.4-8.9)
--- NOTE | 2023-08-25 18:58 | ED Physician Documentation ---
PD HPI MALE - Stated complaint Stated Complaint: - Chief complaint Chief Complaint: Abd Pain - History obtained from History obtained from: Patient - Additional information Additional information: 72-year-old male who has history of a recent TURBT, ureteral biopsy and ureteral stent by Dr. Ahumada on 03/13/2023. He presents today with hematuria with increasing clots. He is on Eliquis and held Eliquis for the procedure what was told last week that he could restart it which he did. He has had some mild hematuria since the procedure which she advised was expected, but today he felt like he could not void and then note passed a number of large clots in his urine. He has also felt like he cannot pass urine. He has not had any flank pain, no fever or chills, no nausea or vomiting, no abdominal pain. Denies any scrotal pain or swelling. No other areas of bleeding. Review of Systems Constitutional: reports: Reviewed and negative Cardiac: reports: Reviewed and negative Respiratory: reports: Reviewed and negative GI: reports: Reviewed and negative : reports: Unable to Void, Hematuria Skin: reports: Reviewed and negative PD PAST MEDICAL HISTORY - Past Medical History Past Medical History: Yes Cardiovascular: Hypertension, High cholesterol, Atrial fibrillation, Murmur, Valve disorder, Other Respiratory: Sleep apnea, Other Neuro: None Endocrine/Autoimmune: Type 2 diabetes, Other GI: GERD, Pancreatitis : Benign prostate hypertrophy HEENT: Chronic vision loss Psych: None Musculoskeletal: None Derm: Other - Past Surgical History Past Surgical History: Yes General: Cholecystectomy, Colonoscopy Ortho: Spine surgery, Other Cardiovascular: Valve replacement HEENT: Tonsil/Adenoidectomy - Present Medications Home Medications: Ambulatory Orders Medication Instructions Recorded Confirmed Losartan [Cozaar] 100 mg PO DAILY 03/11/21 08/13/23 Metoprolol Tartrate [Lopressor] 50 mg PO BID 03/11/21 08/13/23 Rosuvastatin Calcium [Crestor] 40 mg PO QPM 03/11/21 08/13/23 Apixaban [Eliquis] 5 mg PO BID 30 Days #60 tablet 04/28/22 08/13/23 Amlodipine Besylate [Norvasc] 2.5 mg PO DAILY 08/07/23 08/13/23 Cetirizine HCl [Allergy] 10 mg PO DAILY 08/07/23 08/13/23 Famotidine [Pepcid] 20 mg PO BID PRN 08/07/23 08/13/23 Furosemide [Lasix] 10 mg PO DAILY 08/07/23 08/13/23 Magnesium Oxide [Mag-Oxide] 300 mg PO DAILY 08/07/23 08/13/23 Multivitamin 1 each PO DAILY 08/07/23 08/13/23 metFORMIN [Glucophage] 500 mg PO DAILY 08/07/23 08/13/23 Docusate Sodium 100Mg Capsule 100 mg PO DAILY #10 cap 08/13/23 [Colace 100Mg Capsule] HYDROcod/ACETAM 5/325 [[place] 5/325] 1 tab PO Q4H PRN #10 tablet 08/13/23 cephALEXin [Keflex] 500 mg PO ONCE #1 cap 08/13/23 - Allergies Allergies/Adverse Reactions: Allergies Allergy/AdvReac Type Severity Reaction Status Date / Time No Known Drug Allergies Allergy Verified 08/25/23 16:32 - Social History Does the pt smoke?: No Smoking Status: Never smoker Does the pt drink ETOH?: No Does the pt have substance abuse?: No - Immunizations Immunizations: TDAP >10years/unknown - POLST Patient has POLST: No PD ED PE NORMAL - Vitals Vital signs reviewed: Yes - General General: Alert and oriented X 3, No acute distress, Well developed/nourished - HEENT HEENT: Atraumatic, Moist mucous membranes - Cardiac Cardiac: RRR, No murmur - Respiratory Respiratory: No respiratory distress, Clear bilaterally - Abdomen Abdomen: Normal bowel sounds, Soft, Non tender, Non distended - Back Back: No CVA TTP - Derm Derm: Normal color, Warm and dry, No rash Results - Vitals Vitals: Vital Signs - 24 hr 08/25/23 16:32 Temperature 36.5 C Heart Rate 79 Respiratory 20 Rate Blood Pressure 108/61 O2 Saturation 98 Oxygen O2 Source Room air - Labs Labs: Laboratory Tests 08/25/23 08/25/23 08/25/23 18:10 18:10 18:10 WBC 6.6 RBC 4.49 L Hgb 14.0 Hct 44.7 MCV 99.6 H MCH 31.2 H MCHC 31.3 L RDW 13.3 Plt Count 126 L MPV 10.3 Neut # (Auto) 3.7 Lymph # (Auto) 1.9 [place] # (Auto) 0.8 Eos # (Auto) 0.2 Baso # (Auto) 0.0 Absolute Nucleated RBC 0.00 Nucleated RBC % 0.0 PT 15.8 H INR 1.5 H Sodium 142 Potassium 4.4 Chloride 106 Carbon Dioxide 28 Anion Gap 8.0 BUN 40 H Creatinine 2.2 H Estimated GFR (MDRD) 29 L Glucose 106 H Calcium 9.6 Total Bilirubin 0.8 AST 28 ALT 41 Alkaline Phosphatase 58 Total Protein 6.7 Albumin 4.2 Globulin 2.5 Albumin/Globulin Ratio 1.7 Lipase 19 PD Medical Decision Making - ED course Complexity details: reviewed old records, reviewed results, re-evaluated patient, considered differential, d/w patient ED course: 72-year-old male who is recently status post ureteral stent, ureteral biopsy and TURBT by Dr. Ahumada on 08/13/2023 presented with gross hematuria. He was aware that he should expect hematuria after the procedure which she has had though worsening recently since he restarted his Eliquis. He is passing large clots in the shower today and then was not able to pass urine this afternoon and thus presented to the ER. Arrival here, patient is stable, and well-appearing. He was not able to proceed urine sample however and given the large clots that he showed me photographs of, advised that we place a three-way catheter and irrigate the bladder to remove the clots. A 22-gauge three-way catheter was placed in the bladder was irrigated. Urine has improved in color, remains pink- tinged but no further clots are coming out and urine is flowing freely. We will continue to monitor for the duration of the bed but I suspect the patient will be able to discharge home with urinary catheter in place and he will follow up with Dr. Ahumada on Sunday this week as scheduled. We will hold the Eliquis tonight and tomorrow until bleeding subsides. We were not able to send a urinalysis as he could not pass any urine prior in the initial See catheter was complete the clotted urine and then it subsequently diluted by the CBI. Lower suspicion for UTI however as no other symptoms. Labs show stable H&H At 14 and 44.7 respectively., INR somewhat elevated 1.5, and his BUN is 40 creatinine is 2.2 which is similar to slightly above his most recent values. I do believe that is on his his urine remains free of clots that he will be able to discharge home and follow-up with urology early next week as planned. We will reassess after the CBI is completed. Departure - Departure Clinical Impression: Hematuria, gross Condition: Good Instructions: ED Hematuria, ED Catheter Care See Follow-Up: Shady Ahumada MD [Provider Admit Priv/Credential] - Comments: We placed an indwelling urinary catheter to help pass urine. We irrigated your bladder with saline. Anticipate that you will have pink urine still but as long as urine is fully filling in the catheter and you are not having significant pain, we will have you follow-up with your urologist on Sunday as scheduled. Please hold the Eliquis tonight and tomorrow to help the bleeding subside. If you are passing clots again or the clots are obstructing the urine flow in the catheter, you will need to return to the ER for recurrent bladder irrigation. Forms: PCP List
== END 2023-08-25 22:06 | disposition home or self-care (01) ==
LOC: ED 16:26
DX: R31.0 Gross hematuria (principal); I10 Essential (primary) hypertension; E78.00 Pure hypercholesterolemia, unspecified; I48.91 Unspecified atrial fibrillation; E11.9 Type 2 diabetes mellitus without complications; Z79.899 Other long term (current) drug therapy; Z79.01 Long term (current) use of anticoagulants; Z79.84 Long term (current) use of oral hypoglycemic drugs
CPT/HCPCS: 36415; 51700; 80053; 83690; 85025; 85610; 99283

== ENCOUNTER 2023-08-28 12:22 | Emergency (ER) | payer MEDICARE, OTHER ==
[2023-08-28 13:05] LABS: BASOPHILS % (AUTO) 0.5 %; EOSINOPHILS # (AUTO) 0.2 10^3/uL (0.0-0.7); EOSINOPHILS % (AUTO) 2.5 %; HCT - HEMATOCRIT 43.4 % (42.0-52.0); HGB - HEMOGLOBIN 13.5 g/dL (14.0-18.0); LYMPHOCYTES # (AUTO) 1.9 10^3/uL (1.5-3.5); MEAN CORPUSCULAR HEMOGLOBIN 31.5 pg (27.0-31.0); MEAN CORPUSCULAR HGB CONC 31.1 g/dL (32.0-36.0); MEAN CORPUSCULAR VOLUME 101.2 fL (80.0-94.0); MEAN PLATELET VOLUME 10.2 fL (7.4-11.4); MONOCYTES # (AUTO) 0.6 10^3/uL (0.0-1.0); MONOCYTES % (AUTO) 6.6 %; NEUTROPHILS # (AUTO) 5.6 10^3/uL (1.5-6.6); NEUTROPHILS % (AUTO) 67.3 %; PLT - PLATELET COUNT 129 10^3/uL (130-450); RED BLOOD COUNT 4.29 10^6/uL (4.70-6.10); RED CELL DISTRIBUTION WIDTH 13.5 % (12.0-15.0); WHITE BLOOD COUNT 8.3 x10^3/uL (4.8-10.8)
[2023-08-28 13:22] LABS: CALCIUM 10.1 mg/dL (8.5-10.3); CREATININE 2.3 mg/dL (0.6-1.3)
--- NOTE | 2023-08-28 13:48 | ED Physician Documentation ---
History of Present Illness - Stated complaint Stated Complaint: - Chief complaint Chief Complaint: General - History obtained from History obtained from: Patient - Additonal information Additional information: 72-year-old gentleman had cystoscopy and bladder tumor removed on the sixth of this month. He was on DOAC for A-fib. Saw my partner few days ago for hematuria and retention and had a large catheter placed and was flushed. Now having a lot of pain at the tip of the penis with some leakage around the penis. No clots. PD PAST MEDICAL HISTORY - Past Medical History Past Medical History: Yes Cardiovascular: Hypertension, High cholesterol, Atrial fibrillation, Murmur, Valve disorder, Other Respiratory: Sleep apnea, Other Neuro: None Endocrine/Autoimmune: Type 2 diabetes, Other GI: GERD, Pancreatitis : Benign prostate hypertrophy HEENT: Chronic vision loss Psych: None Musculoskeletal: None Derm: Other - Past Surgical History Past Surgical History: Yes General: Cholecystectomy, Colonoscopy Ortho: Spine surgery, Other Cardiovascular: Valve replacement HEENT: Tonsil/Adenoidectomy - Present Medications Home Medications: Ambulatory Orders Medication Instructions Recorded Confirmed Losartan [Cozaar] 100 mg PO DAILY 03/11/21 08/13/23 Metoprolol Tartrate [Lopressor] 50 mg PO BID 03/11/21 08/13/23 Rosuvastatin Calcium [Crestor] 40 mg PO QPM 03/11/21 08/13/23 Apixaban [Eliquis] 5 mg PO BID 30 Days #60 tablet 04/28/22 08/13/23 Amlodipine Besylate [Norvasc] 2.5 mg PO DAILY 08/07/23 08/13/23 Cetirizine HCl [Allergy] 10 mg PO DAILY 08/07/23 08/13/23 Famotidine [Pepcid] 20 mg PO BID PRN 08/07/23 08/13/23 Furosemide [Lasix] 10 mg PO DAILY 08/07/23 08/13/23 Magnesium Oxide [Mag-Oxide] 300 mg PO DAILY 08/07/23 08/13/23 Multivitamin 1 each PO DAILY 08/07/23 08/13/23 metFORMIN [Glucophage] 500 mg PO DAILY 08/07/23 08/13/23 Docusate Sodium 100Mg Capsule 100 mg PO DAILY #10 cap 08/13/23 [Colace 100Mg Capsule] - Allergies Allergies/Adverse Reactions: Allergies Allergy/AdvReac Type Severity Reaction Status Date / Time No Known Drug Allergies Allergy Verified 08/28/23 12:40 - Social History Does the pt smoke?: No Smoking Status: Never smoker Does the pt drink ETOH?: No Does the pt have substance abuse?: No - Immunizations Immunizations: TDAP >10years/unknown - POLST Patient has POLST: No PD ED PE NORMAL - Vitals Vital signs reviewed: Yes - General General: Alert and oriented X 3, No acute distress - Abdomen Abdomen: Normal bowel sounds, Soft, Non tender - Male Male : Other (26 Turkish three-way in place. I irrigated at bedside and there was no clots and it seemed to be working okay so it was removed thinking that it was the catheter that was causing symptoms.) - Neuro Neuro: Alert and oriented X 3 Results - Vitals Vitals: Vital Signs - 24 hr 08/28/23 12:33 Temperature 36 C L Heart Rate 63 Respiratory 20 Rate Blood Pressure 95/49 L O2 Saturation 96 Oxygen O2 Source Room air - Labs Labs: Laboratory Tests 08/28/23 08/28/23 12:59 12:59 WBC 8.3 RBC 4.29 L Hgb 13.5 L Hct 43.4 MCV 101.2 H MCH 31.5 H MCHC 31.1 L RDW 13.5 Plt Count 129 L MPV 10.2 Neut # (Auto) 5.6 Lymph # (Auto) 1.9 [place] # (Auto) 0.6 Eos # (Auto) 0.2 Baso # (Auto) 0.0 Absolute Nucleated RBC 0.00 Nucleated RBC % 0.0 Sodium 140 Potassium 5.0 H Chloride 104 Carbon Dioxide 29 Anion Gap 7.0 BUN 36 H Creatinine 2.3 H Estimated GFR (MDRD) 28 L Glucose 173 H Calcium 10.1 PD Medical Decision Making - ED course ED course: 72-year-old gentleman with symptoms and pain related to a three-way bladder catheter that is seemingly clear now. The catheter was removed and he did pass a voiding trial here.'s on that voiding trial he did have some very small clots but was feeling better and will drink water at home and follow-up with his urologist tomorrow. Departure - Departure Disposition: 01 Home, Self Care Clinical Impression: Hematuria, gross Condition: Good Record reviewed to determine appropriate education?: Yes Instructions: ED Hematuria Comments: As discussed, drink plenty of water as that will help keep your urine dilute and make it less likely that the blood clots will reform to an extent that would require replacement of the See catheter. If you feel like you cannot urinate again please return immediately. Follow-up with your urologist tomorrow. Forms: PCP List
[2023-08-28 14:50] VITALS: BP 111/67; O2SAT 97
== END 2023-08-28 14:50 | disposition home or self-care (01) ==
LOC: ED 12:22
DX: T83.031A Leakage of indwelling urethral catheter, initial encounter (principal); Y82.8 Other medical devices associated with adverse incidents; R31.0 Gross hematuria
CPT/HCPCS: 36415; 80048; 85025; 99282; 99283

== ENCOUNTER 2023-09-07 12:12 | Outpatient (CLI) | payer MEDICARE, OTHER ==
[2023-09-07 12:40] LABS: CREATININE 1.9 mg/dL (0.6-1.3); POTASSIUM 4.9 mmol/L (3.5-4.5)
== END 2023-09-07 12:13 | disposition home or self-care (01) ==
LOC: LAB 12:12
PROVIDERS: ATTEND Urology
DX: N13.5 Crossing vessel and stricture of ureter without hydronephrosis (principal)
CPT/HCPCS: 36415; 80048

== ENCOUNTER 2023-09-08 09:38 | Outpatient (CLI) | payer MEDICARE, OTHER ==
[2023-09-08] MEDS ORDERED: iohexoL-300 100 ML VIAL IVP ONE (13:57)
--- NOTE | 2023-09-09 18:25 | CT Report ---
PROCEDURE: CHEST W INDICATIONS: URETERAL CA, BLADDER CA CONTRAST: 140ml omni 300 TECHNIQUE: After the administration of intravenous contrast, 1 mm axial images were acquired from the pulmonary apices through the posterior costophrenic angles. Axial 5 mm soft tissue kernel reconstructions were performed as well as 8 mm axial MIP and coronal and sagittal 5 mm reformations. For radiation dose reduction, the following was used: automated exposure control, adjustment of mA and/or kV according to patient size. COMPARISON: CT of the abdomen dated 07/11/2023. FINDINGS: Image quality: Excellent. Lungs and pleura: No consolidation. No pleural effusions. No pneumothorax. A solitary fissural node is present within the right horizontal fissure. No suspicious pulmonary nodules which require follow up. Mediastinum: Heart size is normal. No pericardial effusion. No large vessel abnormality. No mediastin al adenopathy by size criteria. Chest wall and lower neck: Thyroid is unremarkable. No axillary or supraclavicular adenopathy by size . Bones: No aggressive osseous abnormality. Upper Abdomen: A low density cystic lesion is noted within the left hepatic lobe. There is a large le ft upper pole simple renal cyst. There may be dilatation of the left renal collecting system which is incompletely characterized. The upper abdominal organs are otherwise unremarkable where visualized. IMPRESSION: 1. No findings to suggest thoracic metastasis. 2. Questionable left hydronephrosis. If further characterization is warranted, renal ultrasound could be used. Reviewed by: Jessica Huerta MD on 09/09/2023 6:24 PM PST Approved by: Jessica Huerta MD on 09/09/2023 6:24 PM PST Station ID: [id number]
--- NOTE | 2023-09-09 18:31 | CT Report ---
PROCEDURE: IVP INDICATIONS: URETERAL CA, BLADDER CA CONTRAST: 140ml omni 300 TECHNIQUE: After the administration of intravenous contrast, 5 mm thick sections acquired from the diaphragms to the symphysis. 5 mm thick coronal and sagittal reformats were acquired. For radiation dose reducti on, the following was used: automated exposure control, adjustment of mA and/or kV according to buzz ent size. COMPARISON: None. FINDINGS: Image quality: Excellent. Urinary system: Both kidneys are normal in size. No right hydronephrosis. There are multiple bilater al low-density renal cysts. There is moderate left hydronephrosis. No contrast excretion is visualize d within the left renal collecting system. However, there is not a delayed left nephrogram. There is periureteral fat stranding throughout the left ureter. No solid masses or complex cysts which require follow up. The right opacified renal collecting system has a normal appearance. The bladder is contr acted and the wall is thickened. OTHER Lung bases and heart: Unremarkable. Liver: No solid mass. Low density cyst is noted within the left hepatic lobe. Gallbladder and biliary tree: The gallbladder is surgically absent. No biliary ductal dilatation. Spleen: No splenomegaly. Pancreas: No pancreatic ductal dilation. Adrenals: No adrenal nodule. Bowel and peritoneum: No bowel distension. No pathologic free fluid. There are scattered sigmoid colo n diverticular outpouchings. No mucosal thickening or pericolonic fat stranding. The appendix is thin -walled. There is a small gas-filled duodenal diverticulum. Abdominal Lymph nodes: No central or retroperitoneal adenopathy. Vessels: There are scattered atheromatous calcifications throughout the abdominal aorta. Reproductive organs: Unremarkable. Pelvic Lymph nodes: Unremarkable. Bones: No aggressive osseous abnormality. Other: There is a large right and a small left fat-containing inguinal hernia. IMPRESSION: 1. Left hydronephrosis and hydroureter. Findings are likely secondary to obstruction at the level of the bladder wall thickening. Additionally, urothelial tumor within the distal ureter cannot be exclud ed. 2. No other findings to suggest metastasis. Reviewed by: Jessica Huerta MD on 09/09/2023 6:29 PM PST Approved by: Jessica Huerta MD on 09/09/2023 6:29 PM PST Station ID: [id number]
== END 2023-09-08 09:39 | disposition home or self-care (01) ==
LOC: DI 09:38
PROVIDERS: ATTEND Urology
DX: C66.2 Malignant neoplasm of left ureter (principal); D09.0 Carcinoma in situ of bladder; N13.30 Unspecified hydronephrosis
CPT/HCPCS: 71260; 74178; Q9967

== ENCOUNTER 2023-09-24 11:46 | Day surgery (SDC) | payer MEDICARE, OTHER ==
[2023-09-24] MEDS ORDERED: LACTATED RINGERS 1,000 ML IV ONE ×2 (11:50→14:50)
[2023-09-24] MEDS ORDERED: iohexoL-240 10 ML VIAL IVP ONE (13:09)
[2023-09-24] MEDS ORDERED: ePHEDrine 50 MG/ML VIAL IVP PRN (13:25)
[2023-09-24] MEDS ORDERED: ATROPINE ABBOJECT 1 MG/10 ML SYRINGE IVP PRN (13:25)
[2023-09-24] MEDS ORDERED: ONDANSETRON 4 MG/2 ML VIAL IVP PRN ×2 (13:25→14:37)
[2023-09-24] MEDS ORDERED: HYDROmorphone 0.5 MG/0.5 ML SYRINGE IVP PRN (13:25)
[2023-09-24] MEDS ORDERED: MORPHINE 2 MG/ML CARPUJECT IVP PRN (13:25)
[2023-09-24] MEDS ORDERED: METOCLOPRAMIDE 10 MG/2 ML VIAL IVP PRN (13:25)
[2023-09-24] MEDS ORDERED: NALOXONE 0.4 MG/ML VIAL IVP PRN (13:25)
[2023-09-24] MEDS ORDERED: fentaNYL 100 MCG/2 ML VIAL IVP PRN (13:25)
--- NOTE | 2023-09-24 13:25 | ANESTHESIA ---
Pre-Anesthesia VS, & Labs - Diagnosis ureteral cancer - Procedure L urewteral stent Vital Signs: Temp Pulse Resp BP Pulse Ox O2 Flow Rate 36 C L 85 18 129/85 H 97 09/24/23 11:53 09/24/23 11:53 09/24/23 11:53 09/24/23 11:53 09/24/23 11:53 Height: 5 ft 9 in Weight (kg): 109 kg Body Mass Index: 35.4 BMI Classification: Obese - NPO >8 hours - Lab Results Lab results reviewed: Yes Home Medications and Allergies Losartan [Cozaar] 100 mg PO DAILY 03/11/21 Metoprolol Tartrate [Lopressor] 50 mg PO BID 03/11/21 Rosuvastatin Calcium [Crestor] 40 mg PO QPM 03/11/21 Cetirizine HCl [Allergy] 10 mg PO DAILY 08/07/23 Famotidine [Pepcid] 20 mg PO BID PRN 08/07/23 Furosemide [Lasix] 10 mg PO DAILY 08/07/23 Magnesium Oxide [Mag-Oxide] 300 mg PO DAILY 08/07/23 metFORMIN [Glucophage] 500 mg PO DAILY 08/07/23 Allergies/Adverse Reactions: Allergies Allergy/AdvReac Type Severity Reaction Status Date / Time No Known Drug Allergies Allergy Verified 08/28/23 12:40 Anes History & Medical History - Anesthetic History Anesthesia Complications: reports: No previous complications Family history of Anesthesia Complications: Denies Family history of Malignant Hyperthermia: Denies - Medical History Cardiovascular: reports: Hypertension, High cholesterol, Atrial fibrillation, Murmur, Valve disorder, Other Pulmonary: reports: Sleep apnea, Other Gastrointestinal: reports: GERD, Pancreatitis Urinary: reports: Benign prostate hypertrophy Neuro: reports: None Musculoskeletal: reports: None Endocrine/Autoimmune: reports: Type 2 diabetes, Other Blood Disorders: reports: None Skin: reports: Other Smoking Status: Never smoker - Surgical History General: reports: Cholecystectomy, Colonoscopy Eyes Ears Nose Throat (EENT): reports: Tonsil/Adenoidectomy Cardiothoracic: reports: Valve replacement Orthopedic: reports: Spine surgery, Other Exam General: Alert, Oriented x3, Cooperative Dental: WNL Mouth Openin Fingerbreadth Neck Mobility: Normal Mallampati classification: II Thyromental Distance: 4-6 cm Respiratory: Lungs clear, Normal breath sounds, No respiratory distress Cardiovascular: Other Mental/Cognitive Status: Alert/Oriented X3, Normal for patient Cognitive Status: Within normal limits Plan Anesthesia Type: General Consent for Procedure(s) Verified and Reviewed: Yes Code Status: Attempt Resuscitation ASA classification: 2-Mild systemic disease Is this case an emergency?: No
[2023-09-24] MEDS ORDERED: PROPOFOL 200 MG/20 ML VIAL IVP ONE (13:40)
[2023-09-24] MEDS ORDERED: fentaNYL 100 MCG/2 ML VIAL ONE (13:41)
[2023-09-24] MEDS ORDERED: ONDANSETRON 4 MG/2 ML VIAL ONE (13:55)
[2023-09-24] MEDS ORDERED: DEXAMETHASONE 4 MG/ML VIAL ONE (13:55)
[2023-09-24] MEDS ORDERED: LACTATED RINGERS 1,000 ML IV SCH (14:00)
[2023-09-24] MEDS ORDERED: PHENYLEPHRINE HCL 0.5 MG/5 ML AMPULE ONE (14:26)
[2023-09-24] MEDS ORDERED: LIDOCAINE 2% URO-JET 5 ML SYRINGE UR ONE (14:34)
[2023-09-24] MEDS ORDERED: HYDROcod/ACETAM 5/325 MG TABLET PO PRN (14:37)
--- NOTE | 2023-09-24 14:44 | Discharge Plan ---
Discharge Plan Problem Reviewed?: Yes Disposition: Home, Self Care Condition: Good Prescriptions: Docusate Sodium 100Mg Capsule [Colace 100Mg Capsule] 100 mg PO DAILY #7 cap cephALEXin [Keflex] 500 mg PO Q8H #21 cap HYDROcod/ACETAM 5/325 [[place] 5/325] 1 tab PO Q4H PRN #10 tablet PRN Reason: Pain Activity Restrictions: No Restrictions Shower Restrictions: No Driving Restrictions: No Instruction Topics: Stents Ureteral Additional Instructions or Follow Up instructions: Call Dr. Ahumada for fever greater than 100.4 It is normal to have some blood in your urine but if there is significant bleeding with clots or difficulty urinating then contact Dr. Ahumada or go to your local emergency room No Smoking: If you smoke, Please STOP! Call for help. Follow-up with: Rowena Mehta DO [Primary Care Provider] -
--- NOTE | 2023-09-24 14:47 | OPERATIVE REPORT ---
Operative Report - General Procedure Date: 09/24/23 Planned Procedure: Cystoscopy, left ureteral stent placement, possible TURBT, possible ureteroscopy, possible retrograde pyelogram Pre-Op Diagnosis: Left ureteral obstruction Procedure Performed: Cystoscopy, left ureteral dilation, left ureteral stent placement Post Op Diagnosis: Left ureteral obstruction, possible UTI - Procedure Note Primary Surgeon: Brandyn Anesthesia Provider: KISHORE Headley Anesthesia Technique: General LMA Pathology: left kidney urine for culture Findings: edematous left trigone but no lavon masses left UO lateral from orthotopic position Ureter required dilation to 13f, lavon purulent drainage Stent placed Complications: Lavon purulence in left kidney - Other Other Information/Narrative: After informed consent was obtained the patient was brought to the OR and laid in the supine position. At that point time the patient was anesthetized per anesthesia protocols. He was then prepped and draped in usual sterile fashion and placed in dorsolithotomy position. A formal timeout was performed reconfirming the patient, procedure and laterality. Using a 22 Liberian cystoscope which was advanced easily into urinary bladder we dissected the bladder and there was edematous changes to the left hemitrigone consistent with recent resection. There was no gross tumor disease seen. The left ureteral orifice resection site was identified it was slightly lateral to the orthotopic position. A sensor wire was easily placed into this UO and up into the kidney under fluoroscopic guidance. We attempted to place a flexible ureteroscope over this wire into the kidney however it met resistance at the UVJ. We then switched the sensor wire out for Super Stiff wire and again there was resistance. We then used a 11 Liberian/13 Liberian ureteral access sheath to dilate the ureter. The 11 Liberian was able to dilate the distal ureter with some moderate resistance. Then the 13 Liberian was able to be placed. When we removed the obturator frankly purulent urine drained. A specimen of this was sent for analysis and culture. We elected that point time not to pursue further ureteroscopy and so the Super Stiff wire was replaced and a 6 Liberian 26 cm double-J ureteral stent was placed with good curling noted in the kidney and good curling noted in the bladder. The bladder was emptied and a Uro-Jet was placed. The patient was reversed from anesthesia and brought to the PACU without further incident. All counts were correct. He will follow-up with his oncologist and radiation oncologist in [place] as planned. He knows the stent must be exchanged or removed within 3 months. I will send him home with a week of empiric keflex antibiotics and contact him as necessary for any changes.
--- NOTE | 2023-09-24 14:57 | ANESTHESIA POST OP EVALUATION ---
Anesthesia Post Eval - Post Anesthesia Eval Vitals: Last Vital Signs Temp 36.2 C L 09/24/23 14:50 Pulse 76 09/24/23 14:50 Resp 15 09/24/23 14:50 BP 106/70 09/24/23 14:50 Pulse Ox 100 09/24/23 14:50 O2 Flow Rate CV Function Including HR & BP: Stable Pain Control: Satisfactory Nausea & Vomiting: Negative Mental Status: Baseline Respiratory Status: Airway Patent Hydration Status: Satisfactory Anesthesia Complications: None
[2023-09-24 15:30] VITALS: BP 112/76; O2SAT 97
--- NOTE | 2023-09-24 18:10 | XRAY Report ---
PROCEDURE: OR C-Arm Procedure INDICATIONS: Left Uretal Stent Placement FLUORO TIME: 0.2 MIN TECHNIQUE: Multiple fluoroscopic images COMPARISON: None. FINDINGS: Multiple fluoroscopic images were acquired for left ureteral stent placement. IMPRESSION: Fluoroscopic support for left ureteral stent placement. Please see separate procedure report for further details. Reviewed by: Ciro Walters MD on 09/24/2023 6:08 PM PST Approved by: Ciro Walters MD on 09/24/2023 6:08 PM PST Station ID: [id number]
== END 2023-09-24 11:47 | disposition home or self-care (01) ==
LOC: SDS 11:46
PROVIDERS: ATTEND Urology
PROC: 0T778DZ Dilation of Left Ureter with Intraluminal Device, Via Natural or Artificial Opening Endoscopic (ICD-10-PCS; principal; 2023-09-24 13:30)
DX: C66.2 Malignant neoplasm of left ureter (principal); N40.0 Benign prostatic hyperplasia without lower urinary tract symptoms; I48.91 Unspecified atrial fibrillation; E11.22 Type 2 diabetes mellitus with diabetic chronic kidney disease; I12.9 Hypertensive chronic kidney disease with stage 1 through stage 4 chronic kidney disease, or unspecified chronic kidney disease; N18.32 Chronic kidney disease, stage 3b; Z79.84 Long term (current) use of oral hypoglycemic drugs; E66.9 Obesity, unspecified; Z68.35 Body mass index [BMI] 35.0-35.9, adult
CPT/HCPCS: 52332; 87086; C1758; C2617; J2372; J7120; Q9966

== ENCOUNTER 2023-11-26 10:23 | Outpatient (CLI) | payer MEDICARE, OTHER ==
[2023-11-26 12:45] LABS: BASOPHILS % (AUTO) 0.3 %; EOSINOPHILS # (AUTO) 0.1 10^3/uL (0.0-0.7); EOSINOPHILS % (AUTO) 1.2 %; HCT - HEMATOCRIT 31.7 % (42.0-52.0); HGB - HEMOGLOBIN 9.7 g/dL (14.0-18.0); LYMPHOCYTES # (AUTO) 0.3 10^3/uL (1.5-3.5); LYMPHOCYTES % (AUTO) 3.6 %; MEAN CORPUSCULAR HEMOGLOBIN 31.7 pg (27.0-31.0); MEAN CORPUSCULAR HGB CONC 30.6 g/dL (32.0-36.0); MEAN CORPUSCULAR VOLUME 103.6 fL (80.0-94.0); MONOCYTES # (AUTO) 1.8 10^3/uL (0.0-1.0); MONOCYTES % (AUTO) 19.6 %; NEUTROPHILS # (AUTO) 6.8 10^3/uL (1.5-6.6); NEUTROPHILS % (AUTO) 74.2 %; PLT - PLATELET COUNT 198 10^3/uL (130-450); RED BLOOD COUNT 3.06 10^6/uL (4.70-6.10); RED CELL DISTRIBUTION WIDTH 17.9 % (12.0-15.0); WHITE BLOOD COUNT 9.2 x10^3/uL (4.8-10.8)
[2023-11-26 12:51] LABS: SLIDE REVIEW? Indicated
[2023-11-26 12:52] LABS: RBC MORPHOLOGY (MULTIPLE) 3+ ANISOCYTOSIS (NORMAL)
[2023-11-26 13:13] LABS: CALCIUM 9.1 mg/dL (8.5-10.3); CREATININE 2.6 mg/dL (0.6-1.3); MAGNESIUM 1.9 mg/dL (1.7-2.3); POTASSIUM 5.2 mmol/L (3.5-4.5)
== END 2023-11-26 10:24 | disposition home or self-care (01) ==
LOC: LAB.N 10:23
PROVIDERS: ATTEND Internal Medicine Medical Oncology
DX: I50.32 Chronic diastolic (congestive) heart failure (principal); D69.6 Thrombocytopenia, unspecified
CPT/HCPCS: 36415; 80048; 83735; 85025

== ENCOUNTER 2023-11-30 13:57 | Outpatient (CLI) | payer MEDICARE, OTHER ==
[2023-11-30 14:13] LABS: BASOPHILS % (AUTO) 0.5 %; EOSINOPHILS # (AUTO) 0.1 10^3/uL (0.0-0.7); EOSINOPHILS % (AUTO) 0.6 %; HCT - HEMATOCRIT 32.2 % (42.0-52.0); HGB - HEMOGLOBIN 9.7 g/dL (14.0-18.0); LYMPHOCYTES # (AUTO) 0.5 10^3/uL (1.5-3.5); LYMPHOCYTES % (AUTO) 5.4 %; MEAN CORPUSCULAR HEMOGLOBIN 31.1 pg (27.0-31.0); MEAN CORPUSCULAR HGB CONC 30.1 g/dL (32.0-36.0); MEAN CORPUSCULAR VOLUME 103.2 fL (80.0-94.0); MEAN PLATELET VOLUME 9.1 fL (7.4-11.4); MONOCYTES # (AUTO) 1.7 10^3/uL (0.0-1.0); NEUTROPHILS # (AUTO) 6.1 10^3/uL (1.5-6.6); NEUTROPHILS % (AUTO) 72.5 %; PLT - PLATELET COUNT 285 10^3/uL (130-450); RED BLOOD COUNT 3.12 10^6/uL (4.70-6.10); WHITE BLOOD COUNT 8.4 x10^3/uL (4.8-10.8)
[2023-11-30 14:14] LABS: RBC MORPHOLOGY (MULTIPLE) 3+ ANISOCYTOSIS (NORMAL); SLIDE REVIEW? Indicated
[2023-11-30 14:24] LABS: BILIRUBIN,TOTAL 0.4 mg/dL (0.2-1.0); CALCIUM 9.1 mg/dL (8.5-10.3); CREATININE 3.4 mg/dL (0.6-1.3); POTASSIUM 5.8 mmol/L (3.5-4.5)
== END 2023-11-30 13:58 | disposition home or self-care (01) ==
LOC: LAB 13:57
PROVIDERS: ATTEND Nurse Practitioner Adult Health
DX: E87.5 Hyperkalemia (principal); C66.2 Malignant neoplasm of left ureter; R31.9 Hematuria, unspecified
CPT/HCPCS: 36415; 80053; 85025

== ENCOUNTER 2023-11-30 17:03 | Emergency (ER) | payer MEDICARE, OTHER ==
[2023-11-30 18:23] LABS: BASOPHILS # (AUTO) 0.1 10^3/uL (0.0-0.1); BASOPHILS % (AUTO) 0.7 %; EOSINOPHILS # (AUTO) 0.1 10^3/uL (0.0-0.7); EOSINOPHILS % (AUTO) 0.6 %; HCT - HEMATOCRIT 33.9 % (42.0-52.0); HGB - HEMOGLOBIN 10.4 g/dL (14.0-18.0); LYMPHOCYTES # (AUTO) 0.4 10^3/uL (1.5-3.5); LYMPHOCYTES % (AUTO) 5.1 %; MEAN CORPUSCULAR HEMOGLOBIN 31.5 pg (27.0-31.0); MEAN CORPUSCULAR HGB CONC 30.7 g/dL (32.0-36.0); MEAN CORPUSCULAR VOLUME 102.7 fL (80.0-94.0); MEAN PLATELET VOLUME 9.2 fL (7.4-11.4); MONOCYTES # (AUTO) 1.4 10^3/uL (0.0-1.0); NEUTROPHILS # (AUTO) 6.2 10^3/uL (1.5-6.6); PLT - PLATELET COUNT 299 10^3/uL (130-450); RED CELL DISTRIBUTION WIDTH 18.2 % (12.0-15.0); WHITE BLOOD COUNT 8.2 x10^3/uL (4.8-10.8)
[2023-11-30 18:47] LABS: ALBUMIN 3.2 g/dL (3.2-5.5); ALKALINE PHOSPHATASE 92 IU/L (42-121); ALT ALANINE AMINOTRANSFERASE 26 IU/L (10-60); AST ASPARTATE AMINOTRANSFERASE 23 IU/L (10-42); BILIRUBIN,TOTAL 0.4 mg/dL (0.2-1.0); BUN - BLOOD UREA NITROGEN 55 mg/dL (6-20); CALCIUM 9.4 mg/dL (8.5-10.3); CARBON DIOXIDE - CO2 26 mmol/L (21-32); CHLORIDE 102 mmol/L (101-111); CREATININE 3.3 mg/dL (0.6-1.3); GFR - MDRD 18 (>89); GLUCOSE 134 mg/dL (74-104); POTASSIUM 5.1 mmol/L (3.5-4.5); SODIUM 138 mmol/L (135-145); TOTAL PROTEIN 6.5 g/dL (6.4-8.9)
[2023-11-30 19:12] LABS: LIPASE < 10 U/L (11-82)
[2023-11-30] MEDS: SODIUM CHLORIDE 0.9% 1,000 ML IV STA ×2 (19:43→20:25)
[2023-11-30] MEDS: HYDROmorphone 1 MG/ML CARPUJECT IVP STA (19:43)
--- NOTE | 2023-11-30 20:12 | CONSULTATION NOTE ---
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 He has a history of left ureteral obstruction from these malignancies requiring stent placement. His stent was last replaced in September 2023. Since I last saw him he has been seen at [facility] bladder tumor clinic and started on gemcitabine and radiation therapy. He received 20 treatments of radiation. After his last radiation treatment he developed hypotension and was admitted to the hospital in [place] for about a week. At that time he did have fluctuating GAETANO, hypotension and intermittent hyperkalemia along with a negative infectious workup. He has had persistent and significantly worsening bladder pains over the last month or so. He has significant frequency and urgency. He cannot hold his urine. He wears depends for this. He has poor sleep patterns because of this as well. He saw KENDRA Bryant of palliative care yesterday. He has been taking oxybutynin, mirabegron, oxycodone, OxyContin, morphine for his multiple painful medical issues. He also has been noted to have an elevated creatinine of 2.6 Nov 26 with a potassium of 5.2. These labs were repeated this morning and unfortunately showed worsening kidney function and hyperkalemia with a potassium of 5.8 and a creatinine of 3.4. I was contacted by KENDRA Bryant this afternoon and I recommended he go to the ER for further evaluation and a CAT scan to better assess if he has an obstructive process versus a fluid shift process. Of note he does have coronary artery disease and congestive heart failure. He has been taking furosemide in the past and did have a dose fairly recently which may have left him intravascularly depleted At the bedside today he remains in good spirits and does crack some jokes. His son and are at bedside and are very worried about him. He appears pale. He is mostly concerned about his bladder pain he denies flank pain History - Past Medical History Cardiovascular: reports: Hypertension, High cholesterol, Atrial fibrillation, Murmur, Valve disorder, Other Respiratory: reports: Sleep apnea, Other Neuro: reports: None Endocrine/Autoimmune: reports: Type 2 diabetes, Other GI: reports: GERD, Pancreatitis : reports: Benign prostate hypertrophy HEENT: reports: Chronic vision loss Psych: reports: None Musculoskeletal: reports: None Derm: reports: Other MRSA Hx?: No - Past Surgical History General: reports: Cholecystectomy, Colonoscopy Ortho: reports: Spine surgery, Other Cardiovascular: reports: Valve replacement HEENT: reports: Tonsil/Adenoidectomy - Family & Social History Living Situation: With family - POLST Patient has POLST: No Meds/Allgy - Home Medications Home Medications: Ambulatory Orders Medication Instructions Recorded Confirmed Losartan [Cozaar] 100 mg PO DAILY 03/11/21 09/24/23 Metoprolol Tartrate [Lopressor] 50 mg PO BID 03/11/21 09/24/23 Rosuvastatin Calcium [Crestor] 40 mg PO QPM 03/11/21 09/24/23 Apixaban [Eliquis] 5 mg PO BID 30 Days #60 tablet 04/28/22 09/24/23 Cetirizine HCl [Allergy] 10 mg PO DAILY 08/07/23 09/24/23 Famotidine [Pepcid] 20 mg PO BID PRN 08/07/23 09/24/23 Furosemide [Lasix] 10 mg PO DAILY 08/07/23 09/24/23 Magnesium Oxide [Mag-Oxide] 300 mg PO DAILY 08/07/23 09/24/23 metFORMIN [Glucophage] 500 mg PO DAILY 08/07/23 09/24/23 Docusate Sodium 100Mg Capsule 100 mg PO DAILY #7 cap 09/24/23 [Colace 100Mg Capsule] HYDROcod/ACETAM 5/325 [[place] 5/325] 1 tab PO Q4H PRN #10 tablet 09/24/23 cephALEXin [Keflex] 500 mg PO Q8H #21 cap 09/24/23 - Allergies Allergies/Adverse Reactions: Allergies Allergy/AdvReac Type Severity Reaction Status Date / Time No Known Drug Allergies Allergy Verified 11/30/23 17:29 Exam - Vital Signs Reviewed Vital Signs: Yes Vital Signs: Vital Signs x48h Temp Pulse Resp BP Pulse Ox 02/23/24 17:26 36.7 C 89 20 104/63 96 - Physical Exam General Appearance: positive: No acute distress, Other (Lying in no acute distress Pallor Obvious oral sores Tender to palpation in suprapubic area. No CVA tenderness) Conclusion and Plan - Lab Results Laboratory Results 11/30/23 18:13: Sodium 138, Potassium 5.1 H, Chloride 102, Carbon Dioxide 26, Anion Gap 10.0, BUN 55 H, Creatinine 3.3 H, Estimated GFR (MDRD) 18 L, Glucose 134 H, Calcium 9.4, Total Bilirubin 0.4, AST 23, ALT 26, Alkaline Phosphatase 92, Total Protein 6.5, Albumin 3.2, Globulin 3.3, Albumin/Globulin Ratio 1.0, Lipase < 10 L 11/30/23 18:13: WBC 8.2, RBC 3.30 L, Hgb 10.4 L, Hct 33.9 L, MCV 102.7 H, MCH 31.5 H, MCHC 30.7 L, RDW 18.2 H, Plt Count 299, MPV 9.2, Neut # (Auto) 6.2, Lymph # (Auto) 0.4 L, [place] # (Auto) 1.4 H, Eos # (Auto) 0.1, Baso # (Auto) 0.1, Absolute Nucleated RBC 0.00, Nucleated RBC % 0.0 - Diagnostic Imaging Results Diagnostic Imaging Results: positive: Read independently (CT with minimal left hydro, stent in good position, bladder empty) - Diagnosis Diagnosis: GAETANO. Hyperkalemia. History of bladder and ureteral cancer. History of left ureteral obstruction - Consultation Note Consultation Note: 73-year-old male with advanced left distal ureteral and bladder cancers with left ureteral stent in place for known obstruction. Now presents to hospital for evaluation of GAETANO and hyperkalemia in setting of likely fluid shifts. CT scan without evidence of continued obstruction. Also with persistent and severe bladder pains from radiation and chemo therapy - Plan Plan: Significant obstruction has been ruled out. Recommend hydration with IV fluids and short follow-up with nephrology. He does see them on Sunday already. Unfortunately he is already on all medications that we can offer him for his bladder pains. I am optimistic that eventually the stent can come out and he will improve his symptoms. Continue follow-up with palliative care for narcotic pain management
[2023-11-30 21:03] LABS: BILIRUBIN,URINE NEGATIVE (NEGATIVE); GLUCOSE, URINE (UA) NEGATIVE (NEGATIVE); KETONES,URINE (UA) NEGATIVE (NEGATIVE); LEUKOCYTE ESTERASE, URINE LARGE (NEGATIVE); NITRITE,URINE NEGATIVE (NEGATIVE); OCCULT BLOOD,URINE LARGE (NEGATIVE); PROTEIN,URINE 100 mg/dL (NEGATIVE); UROBILINOGEN,URINE 0.2 (NORMAL) E.U./dL (NORMAL)
[2023-11-30 21:10] VITALS: BP 109/68; O2SAT 94
[2023-11-30 21:13] LABS: CLARITY,URINE CLOUDY (CLEAR); RBC,URINE TNTC /HPF (0-5); SQUAMOUS EPITHELIAL CELL,UR RARE Squamous (<= Few); WBC,URINE >25 /HPF (0-3)
[2023-11-30 21:14] LABS: BACTERIA,URINE Rare /HPF (None Seen)
--- NOTE | 2023-11-30 22:01 | ED Physician Documentation ---
History of Present Illness - Stated complaint Stated Complaint: /DEHYDRATION - Chief complaint Chief Complaint: Abd Pain - History obtained from History obtained from: Patient - History of Present Illness Timing: Today Pain level max: 0 Pain level now: 0 - Additonal information Additional information: 73-year-old male with a history of ureteral cancer has a stent in place on the left kidney. He was sent to the emergency department due to a creatinine that is elevated above his normal baseline. He did take an extra dose of Lasix the other day. Has not been drinking much water and has noticed darker urine than usual. No fevers. No chills. Abdominal pain is lower, in the bladder and chronic. Unchanged. No other abdominal pain. No flank pain. No chest pain. No cough. No congestion. Nothing makes it better or worse. He was sent here to rule out urinary obstruction. Review of Systems Constitutional: denies: Fever, Chills Respiratory: denies: Cough GI: denies: Vomiting, Diarrhea Skin: denies: Rash Musculoskeletal: denies: Neck pain, Back pain Neurologic: denies: Headache PD PAST MEDICAL HISTORY - Past Medical History Past Medical History: Yes Cardiovascular: Hypertension, High cholesterol, Atrial fibrillation, Murmur, Valve disorder, Other Respiratory: Sleep apnea, Other Neuro: None Endocrine/Autoimmune: Type 2 diabetes, Other GI: GERD, Pancreatitis : Benign prostate hypertrophy HEENT: Chronic vision loss Psych: None Musculoskeletal: None Derm: Other - Past Surgical History Past Surgical History: Yes General: Cholecystectomy, Colonoscopy Ortho: Spine surgery, Other Cardiovascular: Valve replacement HEENT: Tonsil/Adenoidectomy - Present Medications Home Medications: Ambulatory Orders Medication Instructions Recorded Confirmed Losartan [Cozaar] 100 mg PO DAILY 03/11/21 09/24/23 Metoprolol Tartrate [Lopressor] 50 mg PO BID 03/11/21 09/24/23 Rosuvastatin Calcium [Crestor] 40 mg PO QPM 03/11/21 09/24/23 Apixaban [Eliquis] 5 mg PO BID 30 Days #60 tablet 04/28/22 09/24/23 Cetirizine HCl [Allergy] 10 mg PO DAILY 08/07/23 09/24/23 Famotidine [Pepcid] 20 mg PO BID PRN 08/07/23 09/24/23 Furosemide [Lasix] 10 mg PO DAILY 08/07/23 09/24/23 Magnesium Oxide [Mag-Oxide] 300 mg PO DAILY 08/07/23 09/24/23 metFORMIN [Glucophage] 500 mg PO DAILY 08/07/23 09/24/23 Docusate Sodium 100Mg Capsule 100 mg PO DAILY #7 cap 09/24/23 [Colace 100Mg Capsule] HYDROcod/ACETAM 5/325 [[place] 5/325] 1 tab PO Q4H PRN #10 tablet 09/24/23 cephALEXin [Keflex] 500 mg PO Q8H #21 cap 09/24/23 - Allergies Allergies/Adverse Reactions: Allergies Allergy/AdvReac Type Severity Reaction Status Date / Time No Known Drug Allergies Allergy Verified 11/30/23 17:29 - Social History Does the pt smoke?: No Smoking Status: Never smoker Does the pt drink ETOH?: No Does the pt have substance abuse?: No - Immunizations Immunizations: TDAP >10years/unknown - POLST Patient has POLST: No PD ED PE NORMAL - Vitals Vital signs reviewed: Yes - General General: Alert and oriented X 3, No acute distress - HEENT HEENT: Moist mucous membranes - Neck Neck: Supple, no meningeal sign - Cardiac Cardiac: RRR - Respiratory Respiratory: No respiratory distress, Clear bilaterally - Abdomen Abdomen: Soft, Non tender, Non distended - Back Back: No CVA TTP - Derm Derm: Warm and dry - Neuro Neuro: Alert and oriented X 3 - Psych Psych: Normal mood, Normal affect Results - Vitals Vitals: Vital Signs - 24 hr 11/30/23 11/30/23 17:26 21:00 Temperature 36.7 C Heart Rate 89 90 Respiratory 20 17 Rate Blood Pressure 104/63 109/68 O2 Saturation 96 94 Oxygen O2 Source Room air - Labs Labs: Laboratory Tests 11/30/23 11/30/23 11/30/23 18:13 18:13 20:35 WBC 8.2 RBC 3.30 L Hgb 10.4 L Hct 33.9 L MCV 102.7 H MCH 31.5 H MCHC 30.7 L RDW 18.2 H Plt Count 299 MPV 9.2 Neut # (Auto) 6.2 Lymph # (Auto) 0.4 L [place] # (Auto) 1.4 H Eos # (Auto) 0.1 Baso # (Auto) 0.1 Absolute Nucleated RBC 0.00 Nucleated RBC % 0.0 Sodium 138 Potassium 5.1 H Chloride 102 Carbon Dioxide 26 Anion Gap 10.0 BUN 55 H Creatinine 3.3 H Estimated GFR (MDRD) 18 L Glucose 134 H Calcium 9.4 Total Bilirubin 0.4 AST 23 ALT 26 Alkaline Phosphatase 92 Total Protein 6.5 Albumin 3.2 Globulin 3.3 Albumin/Globulin Ratio 1.0 Lipase < 10 L Urine Color LT RED Urine Clarity CLOUDY Urine pH 6.0 Ur Specific [place] 1.010 Urine Protein 100 H Urine Glucose (UA) NEGATIVE Urine Ketones NEGATIVE Urine Occult Blood LARGE H Urine Nitrite NEGATIVE Urine Bilirubin NEGATIVE Urine Urobilinogen 0.2 (NORMAL) Ur Leukocyte Esterase LARGE H Urine RBC TNTC H Urine WBC >25 H Ur Squamous Epith Cells RARE Squamous Urine Bacteria Rare Ur Microscopic Review INDICATED Urine Culture Comments INDICATED - Rads (name of study) CT abdomen pelvis Relevant Findings:: Final report received, See rad report PD Medical Decision Making - ED course Complexity details: reviewed results, re-evaluated patient, considered differential, d/w patient, d/w family, d/w life skills consultant ED course: Patient with mildly elevated creatinine above his baseline. Was given IV fluids here. Mild elevation of his potassium. No indication for treatment. This should resolve with the IV fluids as well. Discussed the case with Dr. Ahumada, urology. He came and evaluated the patient as well. Reviewed his CT scan. Is not concerned about the stents. Will have the patient follow-up with his doctor next week as scheduled to have his creatinine rechecked. Recommend holding his Lasix at this time. Patient is very well-appearing, nontoxic. Afebrile. His urinalysis does not show any significant bacteria, does have white blood cells and red blood cells. Discussed this with Dr. Ahumada, feels that this does not represent true infection, rather likely is secondary to his cancer. Therefore we will hold antibiotic treatment at this time.. Patient counseled regarding signs and symptoms for which I believe and urgent re-evaluation would be necessary. Patient with good understanding of and agreement to plan and is comfortable going home at this time This document was made in part using voice recognition software. While efforts are made to proofread this document, sound alike and grammatical errors may occur. PROCEDURE: Abdomen/Pelvis WO INDICATIONS: worsening renal function, L kidney stent TECHNIQUE: A CT scan of the abdomen and pelvis was performed without the use of intravenous contrast. Images were recorded and evaluated at appropriate window settings. Reformats: coronal and sagittal. For radiation dose reduction, the following was used: automated exposure control, adjustment of mA and/or kV according to patient size. COMPARISON: 09/08/2023 FINDINGS: Image quality: Diagnostic. Lower chest: There are patchy dependent consolidative opacities involving the posterior aspect of the bilateral lower lobes with mild airway thickening and minimal bronchiectasis of the involved areas. Findings may represent sequela of aspiration, possibly recurrent in etiology. Heart size is normal. Liver: No contour-deforming mass. Stable anterior left hepatic lobe hypodensity likely representing a cyst or hemangioma. Gallbladder and biliary tree: Status post cholecystectomy. No biliary ductal dilatation. Spleen: No splenomegaly. Pancreas: No pancreatic ductal dilation. Adrenals: No adrenal nodule. Kidneys and ureters: Left double-J ureteral stent is again noted. Stable positioning. There is mild left perinephric and left periureteral stranding. This is similar compared to the prior study. Persistent mild left hydronephrosis. Multiple left renal cysts are again seen. Multiple right renal cysts as before. There is mild right hydroureteronephrosis. No obstructing mass identified. No obstructing stone seen along the course of the right ureter. Suggestion of possible mild distal right ureteral wall prominence versus thickening. Stomach, bowel and peritoneum: Chronic diverticulosis without acute diverticulitis. Normal appendix. Visualized small bowel appear unremarkable without evidence for obstruction or acute inflammatory changes. Lymph nodes: No central or retroperitoneal adenopathy. Vessels: No infrarenal aortic aneurysm. Scattered atherosclerotic vascular calcifications. PELVIS Reproductive organs: Unremarkable. Bladder: No wall thickness, accounting for underdistention. No urinary bladder stone. Pelvic lymph nodes: No pelvic adenopathy by size criteria. Bones: No aggressive osseous abnormality. Other: Small umbilical hernia containing fat. No acute inflammatory changes. Moderate sized fat- containing right inguinal hernia without acute inflammation. However, there is a small amount of fluid within the hernia sac. Small fat-containing left inguinal hernia without acute inflammation. IMPRESSION: 1. Stable positioning of left ureteral stent with mild persistent left hydronephrosis. Stable appearance of left perinephric and periureteral stranding. 2. Mild right hydroureteronephrosis without distal obstructing mass or stone. Suggestion of possible mild distal right ureteral wall thickening/prominence. No definite mass identified. 3. Multiple bilateral renal cysts. 4. New patchy dependent bibasilar consolidations with minimal bronchiectasis possibly related to aspiration. 5. Other chronic findings as above. Departure - Departure Disposition: 01 Home, Self Care Clinical Impression: Dehydration Chronic renal insufficiency Qualifiers: Chronic kidney disease stage: unspecified stage Qualified Code(s): N18.9 - Chronic kidney disease, unspecified Condition: Good Instructions: ED Dehydration Follow-Up: Gabrielle Joyce PA-C [Primary Care Provider] - Comments: Your CT scan does not show any significant abnormalities today. Please follow- up with your doctor for further care. Your stent appears to be functioning well. Please make sure you are drinking plenty of water. Please return if you worsen. Your potassium and kidney function can be rechecked with your doctor next week Forms: PCP List Discharge Date/Time: 11/30/23 22:35
--- NOTE | 2023-11-30 23:01 | CT Report ---
PROCEDURE: Abdomen/Pelvis WO INDICATIONS: worsening renal function, L kidney stent TECHNIQUE: A CT scan of the abdomen and pelvis was performed without the use of intravenous contrast. Images we re recorded and evaluated at appropriate window settings. Reformats: coronal and sagittal. For radiat ion dose reduction, the following was used: automated exposure control, adjustment of mA and/or kV ac cording to patient size. COMPARISON: 09/08/2023 FINDINGS: Image quality: Diagnostic. Lower chest: There are patchy dependent consolidative opacities involving the posterior aspect of the bilateral lower lobes with mild airway thickening and minimal bronchiectasis of the involved areas. Findings may represent sequela of aspiration, possibly recurrent in etiology. Heart size is normal. Liver: No contour-deforming mass. Stable anterior left hepatic lobe hypodensity likely representing a cyst or hemangioma. Gallbladder and biliary tree: Status post cholecystectomy. No biliary ductal dilatation. Spleen: No splenomegaly. Pancreas: No pancreatic ductal dilation. Adrenals: No adrenal nodule. Kidneys and ureters: Left double-J ureteral stent is again noted. Stable positioning. There is mild l eft perinephric and left periureteral stranding. This is similar compared to the prior study. Persist ent mild left hydronephrosis. Multiple left renal cysts are again seen. Multiple right renal cysts as before. There is mild right hydroureteronephrosis. No obstructing mass identified. No obstructing stone seen along the course of the right ureter. Suggestion of possible mi ld distal right ureteral wall prominence versus thickening. Stomach, bowel and peritoneum: Chronic diverticulosis without acute diverticulitis. Normal appendix. Visualized small bowel appear unremarkable without evidence for obstruction or acute inflammatory nomi nges. Lymph nodes: No central or retroperitoneal adenopathy. Vessels: No infrarenal aortic aneurysm. Scattered atherosclerotic vascular calcifications. PELVIS Reproductive organs: Unremarkable. Bladder: No wall thickness, accounting for underdistention. No urinary bladder stone. Pelvic lymph nodes: No pelvic adenopathy by size criteria. Bones: No aggressive osseous abnormality. Other: Small umbilical hernia containing fat. No acute inflammatory changes. Moderate sized fat-conta ining right inguinal hernia without acute inflammation. However, there is a small amount of fluid wit hin the hernia sac. Small fat-containing left inguinal hernia without acute inflammation. IMPRESSION: 1. Stable positioning of left ureteral stent with mild persistent left hydronephrosis. Stable appeara nce of left perinephric and periureteral stranding. 2. Mild right hydroureteronephrosis without distal obstructing mass or stone. Suggestion of possible mild distal right ureteral wall thickening/prominence. No definite mass identified. 3. Multiple bilateral renal cysts. 4. New patchy dependent bibasilar consolidations with minimal bronchiectasis possibly related to aspi ration. 5. Other chronic findings as above. Reviewed by: Ciro Valdez MD on 11/30/2023 11:00 PM PST Approved by: Ciro Valdez MD on 11/30/2023 11:00 PM PST Station ID: [id number]
--- NOTE | 2023-12-03 11:48 | ED Physician Documentation ---
ED Addendum - Addendum Addendum: 12/03/23 11:48 Culture reviewed, he had a urology consultation in the emergency department that was documented as not likely to have true UTI. There is no white count or fever.
== END 2023-11-30 22:35 | disposition home or self-care (01) ==
LOC: ED 17:03
DX: E86.0 Dehydration (principal); N17.9 Acute kidney failure, unspecified; N18.9 Chronic kidney disease, unspecified; E87.5 Hyperkalemia; I25.10 Atherosclerotic heart disease of native coronary artery without angina pectoris; I50.9 Heart failure, unspecified; I11.0 Hypertensive heart disease with heart failure; C66.2 Malignant neoplasm of left ureter; D09.0 Carcinoma in situ of bladder; Z79.899 Other long term (current) drug therapy; G89.3 Neoplasm related pain (acute) (chronic); Z96.0 Presence of urogenital implants; Z87.448 Personal history of other diseases of urinary system; R31.9 Hematuria, unspecified
CPT/HCPCS: 36415; 74176; 80053; 81001; 83690; 85025; 87077; 87086; 87181; 93005; 96374; 99284; J1170; 81003

== ENCOUNTER 2023-12-20 08:00 | Outpatient (CLI) | payer MEDICARE, OTHER | END 2023-12-20 23:59 | disposition home or self-care (01) | LOC: PC 08:00 | PROVIDERS: ATTEND Nurse Practitioner Adult Health | DX: Z51.5 Encounter for palliative care (principal); C67.9 Malignant neoplasm of bladder, unspecified; C77.9 Secondary and unspecified malignant neoplasm of lymph node, unspecified; G89.3 Neoplasm related pain (acute) (chronic); N17.9 Acute kidney failure, unspecified; N18.9 Chronic kidney disease, unspecified; Z92.21 Personal history of antineoplastic chemotherapy; Z92.3 Personal history of irradiation; Z79.891 Long term (current) use of opiate analgesic; R53.83 Other fatigue; K59.03 Drug induced constipation; T40.2X5A Adverse effect of other opioids, initial encounter; F41.9 Anxiety disorder, unspecified; R31.9 Hematuria, unspecified; I50.9 Heart failure, unspecified; R60.0 Localized edema; Z79.899 Other long term (current) drug therapy; Z96.0 Presence of urogenital implants | CPT/HCPCS: 99215 ==

== ENCOUNTER 2023-12-21 10:09 | Outpatient (CLI) | payer MEDICARE, OTHER ==
[2023-12-21 10:38] LABS: CALCIUM 9.6 mg/dL (8.5-10.3); CREATININE 2.2 mg/dL (0.6-1.3)
== END 2023-12-21 10:10 | disposition home or self-care (01) ==
LOC: LAB 10:09
PROVIDERS: ATTEND Nurse Practitioner Adult Health
DX: C66.2 Malignant neoplasm of left ureter (principal); N18.32 Chronic kidney disease, stage 3b; I50.9 Heart failure, unspecified; E87.5 Hyperkalemia
CPT/HCPCS: 36415; 80048

== ENCOUNTER 2023-12-28 10:18 | Outpatient (CLI) | payer MEDICARE, OTHER ==
[2023-12-28 10:34] LABS: BASOPHILS # (AUTO) 0.1 10^3/uL (0.0-0.1); BASOPHILS % (AUTO) 0.7 %; EOSINOPHILS # (AUTO) 0.2 10^3/uL (0.0-0.7); EOSINOPHILS % (AUTO) 2.4 %; HCT - HEMATOCRIT 38.2 % (42.0-52.0); LYMPHOCYTES # (AUTO) 0.7 10^3/uL (1.5-3.5); LYMPHOCYTES % (AUTO) 7.8 %; MEAN CORPUSCULAR HEMOGLOBIN 32.1 pg (27.0-31.0); MEAN CORPUSCULAR HGB CONC 31.4 g/dL (32.0-36.0); MEAN CORPUSCULAR VOLUME 102.1 fL (80.0-94.0); MEAN PLATELET VOLUME 9.1 fL (7.4-11.4); MONOCYTES % (AUTO) 11.3 %; NEUTROPHILS # (AUTO) 6.5 10^3/uL (1.5-6.6); NEUTROPHILS % (AUTO) 77.4 %; PLT - PLATELET COUNT 166 10^3/uL (130-450); RED BLOOD COUNT 3.74 10^6/uL (4.70-6.10); RED CELL DISTRIBUTION WIDTH 17.6 % (12.0-15.0); WHITE BLOOD COUNT 8.4 x10^3/uL (4.8-10.8)
[2023-12-28 10:46] LABS: CALCIUM 10.1 mg/dL (8.5-10.3); CREATININE 2.1 mg/dL (0.6-1.3); MAGNESIUM 1.6 mg/dL (1.7-2.3); POTASSIUM 4.9 mmol/L (3.5-4.5)
[2023-12-28 11:04] LABS: ESTIMATED AVERAGE GLUCOSE 134 mg/dL (70-100); HEMOGLOBIN A1c% 6.3 % (4.27-6.07)
== END 2023-12-28 10:19 | disposition home or self-care (01) ==
LOC: LAB 10:18
PROVIDERS: ATTEND Physician Assistant
DX: N17.9 Acute kidney failure, unspecified (principal); E87.5 Hyperkalemia; E11.40 Type 2 diabetes mellitus with diabetic neuropathy, unspecified; E11.22 Type 2 diabetes mellitus with diabetic chronic kidney disease; N18.32 Chronic kidney disease, stage 3b; E11.42 Type 2 diabetes mellitus with diabetic polyneuropathy; D69.6 Thrombocytopenia, unspecified; D09.0 Carcinoma in situ of bladder; I48.0 Paroxysmal atrial fibrillation
CPT/HCPCS: 36415; 80048; 83036; 83735; 85025

== ENCOUNTER 2024-01-01 08:00 | Outpatient (CLI) | payer MEDICARE, OTHER | END 2024-01-01 23:59 | disposition home or self-care (01) | LOC: PC 08:00 | PROVIDERS: ATTEND Nurse Practitioner Adult Health | DX: Z51.5 Encounter for palliative care (principal); C67.9 Malignant neoplasm of bladder, unspecified; C77.9 Secondary and unspecified malignant neoplasm of lymph node, unspecified; G89.3 Neoplasm related pain (acute) (chronic); Z92.21 Personal history of antineoplastic chemotherapy; Z79.891 Long term (current) use of opiate analgesic; Z79.899 Other long term (current) drug therapy; Z92.3 Personal history of irradiation; K59.03 Drug induced constipation; T40.2X5A Adverse effect of other opioids, initial encounter; G47.33 Obstructive sleep apnea (adult) (pediatric); R53.83 Other fatigue; I50.9 Heart failure, unspecified; R33.9 Retention of urine, unspecified; B37.0 Candidal stomatitis; R63.0 Anorexia; M62.81 Muscle weakness (generalized); R26.81 Unsteadiness on feet; R29.6 Repeated falls; Z96.0 Presence of urogenital implants | CPT/HCPCS: 99215 ==

== ENCOUNTER 2024-01-03 12:23 | Outpatient (CLI) | payer MEDICARE, OTHER ==
[2024-01-03 12:52] LABS: CALCIUM 10.2 mg/dL (8.5-10.3); CREATININE 1.9 mg/dL (0.6-1.3)
== END 2024-01-03 12:24 | disposition home or self-care (01) ==
LOC: LAB 12:23
PROVIDERS: ATTEND Nurse Practitioner Adult Health
DX: N18.32 Chronic kidney disease, stage 3b (principal)
CPT/HCPCS: 36415; 80048

== ENCOUNTER 2024-01-06 08:00 | Outpatient (CLI) | payer MEDICARE, OTHER | END 2024-01-06 23:59 | disposition home or self-care (01) | LOC: PC 08:00 | PROVIDERS: ATTEND Nurse Practitioner Adult Health | DX: Z51.5 Encounter for palliative care (principal); C66.2 Malignant neoplasm of left ureter; N18.32 Chronic kidney disease, stage 3b | CPT/HCPCS: 99426; 99427 ==

== ENCOUNTER 2024-01-14 08:00 | Outpatient (CLI) | payer MEDICARE, OTHER | END 2024-01-14 23:59 | disposition home or self-care (01) | LOC: PC 08:00 | PROVIDERS: ATTEND Nurse Practitioner Adult Health | DX: Z51.5 Encounter for palliative care (principal); C67.9 Malignant neoplasm of bladder, unspecified; C77.9 Secondary and unspecified malignant neoplasm of lymph node, unspecified; G89.3 Neoplasm related pain (acute) (chronic); Z92.21 Personal history of antineoplastic chemotherapy; Z79.891 Long term (current) use of opiate analgesic; Z79.899 Other long term (current) drug therapy; Z92.3 Personal history of irradiation; K59.03 Drug induced constipation; T40.2X5A Adverse effect of other opioids, initial encounter; R53.83 Other fatigue; I50.9 Heart failure, unspecified; M62.81 Muscle weakness (generalized); R26.81 Unsteadiness on feet; Z96.0 Presence of urogenital implants; K11.7 Disturbances of salivary secretion; R39.89 Other symptoms and signs involving the genitourinary system; Y84.2 Radiological procedure and radiotherapy as the cause of abnormal reaction of the patient, or of later complication, without mention of misadventure at the time of the procedure; R42 Dizziness and giddiness; R31.9 Hematuria, unspecified; F41.9 Anxiety disorder, unspecified; R30.0 Dysuria; R60.0 Localized edema; I95.9 Hypotension, unspecified | CPT/HCPCS: 99215 ==

== ENCOUNTER 2024-01-14 14:44 | Outpatient (CLI) | payer MEDICARE, OTHER ==
[2024-01-14 14:58] LABS: BILIRUBIN,URINE SMALL (NEGATIVE); GLUCOSE, URINE (UA) NEGATIVE (NEGATIVE); KETONES,URINE (UA) NEGATIVE (NEGATIVE); LEUKOCYTE ESTERASE, URINE MODERATE (NEGATIVE); NITRITE,URINE NEGATIVE (NEGATIVE); OCCULT BLOOD,URINE LARGE (NEGATIVE); PH,URINE 5.5 PH (5.0-7.5); PROTEIN,URINE 100 mg/dL (NEGATIVE); UROBILINOGEN,URINE 0.2 (NORMAL) E.U./dL (NORMAL)
[2024-01-14 16:27] LABS: CLARITY,URINE CLOUDY (CLEAR)
[2024-01-14 16:29] LABS: WBC,URINE >25 /HPF (0-3)
[2024-01-14 16:30] LABS: BACTERIA,URINE Few /HPF (None Seen); SQUAMOUS EPITHELIAL CELL,UR FEW Squamous (<= Few)
[2024-01-14 16:31] LABS: AMORPHOUS SEDIMENT,UR Moderate /LPF
== END 2024-01-14 14:45 | disposition home or self-care (01) ==
LOC: LAB.R 14:44
PROVIDERS: ATTEND Nurse Practitioner Adult Health
DX: R30.0 Dysuria (principal)
CPT/HCPCS: 81001; 81003; 87086

== ENCOUNTER 2024-01-22 10:34 | Outpatient (CLI) | payer MEDICARE, OTHER ==
[2024-01-22] MEDS ORDERED: DIATRIZOATE MEGLU/DIATRIZO SOD 30 ML BOTTLE PO ONE (11:01)
--- NOTE | 2024-01-23 00:25 | CT Report ---
PROCEDURE: Abdomen/Pelvis WO INDICATIONS: URETERAL CA TECHNIQUE: A CT scan of the abdomen and pelvis was performed without the use of intravenous contrast. Images we re recorded and evaluated at appropriate window settings. Reformats: coronal and sagittal. For radiat ion dose reduction, the following was used: automated exposure control, adjustment of mA and/or kV ac cording to patient size. COMPARISON: CT IVP 09/08/2023. CT abdomen pelvis 10/13/2021. FINDINGS: Image quality: Diagnostic. Evaluation of the solid parenchymal organs is limited without IV contrast. Lower chest: Left lower lobe pulmonary nodule measuring 0.3 cm, (8/10), unchanged. Bibasilar atelecta sis. TAVR stent. Liver: No contour-deforming mass. Small cysts. Gallbladder and biliary tree: Surgically absent. No biliary dilation, accounting for post-cholecystec ashlyn state. Spleen: No splenomegaly. Pancreas: No pancreatic ductal dilation. Adrenals: No adrenal nodule. Kidneys and ureters: Mild left hydronephrosis. Left double-J ureteral stent. Multiple low-density avi al cysts bilaterally. No kidney stones. Stomach, bowel and peritoneum: No bowel distension. No pathologic free fluid. Diverticulosis. Normal appendix. Lymph nodes: No central or retroperitoneal adenopathy. Vessels: No infrarenal aortic aneurysm. PELVIS Reproductive organs: Unremarkable. Bladder: Bladder is mostly decompressed. Thickening at the superior bladder. Pelvic lymph nodes: No pelvic adenopathy by size criteria. Bones: No aggressive osseous abnormality. Prior fracture of the right inferior pubic ramus. Screw at the right ilium. Other: Fat-containing inguinal hernias. IMPRESSION: 1. Mild left hydronephrosis. Left double-J ureteral stent. 2. Thickening at the superior bladder. No enlarged lymph nodes seen. 3. No kidney stones. Reviewed by: Glenroy Jaffe MD on 01/23/2024 12:23 AM PDT Approved by: Glenroy Jaffe MD on 01/23/2024 12:23 AM PDT Station ID: [id number]
--- NOTE | 2024-01-23 00:32 | CT Report ---
PROCEDURE: Chest WO INDICATIONS: URETERAL CA TECHNIQUE: A CT scan of the chest was performed. Intravenous contrast media was not administered. Images were re corded and evaluated at appropriate window settings. Reformats: axial MIP of the chest, coronal and s agittal. For radiation dose reduction, the following was used: automated exposure control, adjustment of mA and/or kV according to patient size. COMPARISON: CT chest 09/08/2023. Same day CT abdomen pelvis. FINDINGS: Image quality: Diagnostic. Chest wall and lower neck: No thyroid nodule which requires sonographic follow up. No axillary or sup raclavicular adenopathy by size. Lungs and pleura: No consolidation. Mild bibasilar atelectasis. No pleural effusions. No pneumothorax . No suspicious pulmonary nodules which require follow up. A few pulmonary nodules measuring 0.4 cm o r less are similar. Mediastinum: Heart size is within normal limits. TAVR stent. No pericardial effusion. No large vessel abnormality. No mediastinal adenopathy by size criteria. Bones: No aggressive osseous abnormality. Upper Abdomen: Please see separately dictated same day CT abdomen pelvis without contrast. IMPRESSION: No metastatic disease identified in the chest. Reviewed by: Glenroy Jaffe MD on 01/23/2024 12:30 AM PDT Approved by: Glenroy Jaffe MD on 01/23/2024 12:30 AM PDT Station ID: [id number]
== END 2024-01-22 10:35 | disposition home or self-care (01) ==
LOC: DI 10:34
PROVIDERS: ATTEND Radiology Radiation Oncology
DX: C66.2 Malignant neoplasm of left ureter (principal); N13.30 Unspecified hydronephrosis

== ENCOUNTER 2024-01-24 15:26 | Outpatient (CLI) | payer MEDICARE, OTHER ==
--- NOTE | 2024-01-24 14:10 | SLEEP CARE CONSULTATION ---
Information from patient questionnaire entered by Kat Ryder. I have reviewed and concur with the information entered by Kat Ryder. This document represents the service I personally performed and the decisions made by me, Yaa Gunn ARNP. History of Present Illness Service Date and Time: 01/24/2024 1400 Previous diagnosis: Severe, Obstructive Sleep Apnea-Hypopnea Syndrome AHI: 48.3 (in 2014) Reason for follow up: annual (LAST SEEN 01/2023) Equipment type: CPAP (RESMED AirCurve 10 ST, s/u -12/2022) Equipment obtained from: Other ([facility]; getting supplies as needed) Mask style: Full face Mask brand: Resmed (AirTouch F20, large cushion) Backup mask available: Yes Last cushion change: 2 weeks Prior sleep studies: Yes Year and Where: 2014 - [facility] Type of Sleep Study: Polysomnography (F/U TITRATION AT [facility]) HPI additional information: MAY LUGO was diagnosed to have severe, AHI 48.3, obstructive sleep apnea-hypopnea syndrome and returns via telephone visit with spouse today for CPAP therapy annual follow-up. Sleep Study - Results Type of Sleep Study: Polysomnography (F/U TITRATION AT [facility]) Prior sleep studies: Yes Year and Where: 2014 - [facility] CPAP Compliance Data - Data Reviewed with Patient Average duration of nightly device use: 5 HRS 7 MINS Compliance rate %: 68 (01/23/23-01/22/24; 312/365 days used) Current pressure setting (cmH2O): 24/09 Average residual AHI: 1.6 Obstructive apnea: 0.2 Hypopnea: 1.4 Average large leak: 37 L/min Subjective Missed days of use due to: reports: illness (in hospital 2 times for 2 weeks or more with cancer diagnosis/treatment) Patient concerns: denies: aerophagia, mask discomfort, air blowing in eyes, mask leak noise, condensation in mask/hose, nasal congestion, dry mouth, nose, throat, epistaxis Observed to snore while using device: No Current pressure setting perceived as: comfortable On therapy, patient: reports: sleeping better, awakening more refreshed, being more awake and alert during the day, more rested overall. denies: drowsiness while driving (is not driving for lat 6 months) Initial Buras Sleepiness Scale score: 20 (in 2015) Current Buras Sleepiness Scale score: 13 (01/24/24) Allergies and Home Medications Known drug allergies: No Drug allergies reviewed: Yes Home medication list reviewed: Yes (as listed) Allergy and home medication list: Allergies No Known Drug Allergies Allergy (Verified 01/22/24 10:58) Home Medications Medication Instructions Recorded Confirmed Last Taken Type Metoprolol Tartrate [Lopressor] 50 mg PO BID 03/11/21 01/24/24 09/24/23 History Rosuvastatin Calcium [Crestor] 40 mg PO QPM 03/11/21 01/24/24 09/23/23 History Famotidine [Pepcid] 20 mg PO BID PRN 08/07/23 01/24/24 09/23/23 History Gabapentin [Neurontin] See Rx Instructions .ROUTE .COMPLEX 01/24/24 01/24/24 Unknown History Mirabegron [Myrbetriq] See Rx Instructions .ROUTE .COMPLEX 01/24/24 01/24/24 Unknown History Senna [Senokot] See Rx Instructions .ROUTE .COMPLEX 01/24/24 01/24/24 Unknown History Tamsulosin HCl [Flomax] See Rx Instructions .ROUTE .COMPLEX 01/24/24 01/24/24 Unknown History fentaNYL [Fentanyl 25mcg patch] See Rx Instructions .ROUTE .COMPLEX 01/24/24 01/24/24 Unknown History oxyBUTYnin chloride [Oxybutynin See Rx Instructions .ROUTE .COMPLEX 01/24/24 01/24/24 Unknown History Chloride] oxyCODONE [Roxicodone] See Rx Instructions .ROUTE .COMPLEX 01/24/24 01/24/24 Unknown History Review of Systems Review of systems same as previous: No (UTERER AND BLADDER CANCER 08/2023) Physical Exam Vital signs obtained and entered by: Kat Cintron MA Height: 5 ft 9 in (PER PT) Weight: 219 lb (PER PT) Weight change since last visit: 32 lb loss Body Mass Index: 32.3 BMI Classification: Obese Impression and Plan 1. Obstructive Sleep Apnea-Hypopnea Syndrome, severe, with fair treatment compliance and good apnea control. On BiPAP therapy, the patient has better sleep quality and is more rested overall. Patient had significant changes in his health with over 30 pound weight loss after diagnosis with ureter and bladder cancer. He spent time in the hospital twice for treatment. This affected his compliance but overall this year he has been very compliant when able to use his BiPAP. Patient has significant improvement of their sleep apnea and is satisfied with current CPAP therapy. Patient denies problems with oral dryness, nasal congestion, epistaxis, skin irritation or aerophagia. Patient's apnea severity and rationale for treatment to reduce apnea, improve sleep quality and reduce cardiovascular and cerebrovascular events was reviewed. I also reviewed the benefit of consistent device use of BiPAP for hypertension, arrhythmia, gastric reflux. 2. Obesity, unspecified. Currently patients BMI is 32.3. Obesity increases the risk of apnea, BiPAP pressure requirements and overall health risks especially cardiovascular and diabetes. Thus patient is advised to lose weight. * Continue BiPAP S/T pressure at 18/12 cmH2O * Update supply prescription * Notify me if snoring with mask or feeling that the pressure is too much or too little * Attempt to lose weight * Call this office if any problems using BiPAP * Return for follow up in 12 months, or sooner if concerns arise Counseling Topics: Spare mask, Weight loss health impact Prescriptions: Device supplies Follow up with Sleep Care in: 1 year Visit Type: Telehealth Phone Video Type: Doximity Patient Location: Home Other Participants: Spouse/Significant Other Location of Provider: Office Patient agrees and consents to this telehealth visit type: Yes Time Spent with Patient (minutes): 15 Provider Statement: I spent 100% of the Telehealth Phone Call with the patient with greater than 50% spent counseling the patient and coordination of care.
== END 2024-01-24 15:27 | disposition home or self-care (01) ==
LOC: SC 15:26
PROVIDERS: ATTEND Nurse Practitioner Family
DX: G47.33 Obstructive sleep apnea (adult) (pediatric) (principal); E66.9 Obesity, unspecified; Z68.32 Body mass index [BMI] 32.0-32.9, adult
CPT/HCPCS: 99442

== ENCOUNTER 2024-02-01 08:00 | Outpatient (CLI) | payer MEDICARE, OTHER | END 2024-02-01 23:59 | disposition home or self-care (01) | LOC: PC 08:00 | PROVIDERS: ATTEND Nurse Practitioner Adult Health | DX: Z51.5 Encounter for palliative care (principal); C67.9 Malignant neoplasm of bladder, unspecified; C77.9 Secondary and unspecified malignant neoplasm of lymph node, unspecified; G89.3 Neoplasm related pain (acute) (chronic); Z92.21 Personal history of antineoplastic chemotherapy; Z79.891 Long term (current) use of opiate analgesic; Z79.899 Other long term (current) drug therapy; Z92.3 Personal history of irradiation; K59.03 Drug induced constipation; T40.2X5A Adverse effect of other opioids, initial encounter; R53.83 Other fatigue; I50.9 Heart failure, unspecified; M62.81 Muscle weakness (generalized); R26.81 Unsteadiness on feet; Z96.0 Presence of urogenital implants; N30.40 Irradiation cystitis without hematuria; Y84.2 Radiological procedure and radiotherapy as the cause of abnormal reaction of the patient, or of later complication, without mention of misadventure at the time of the procedure; F41.9 Anxiety disorder, unspecified; R60.0 Localized edema; R29.6 Repeated falls; E11.42 Type 2 diabetes mellitus with diabetic polyneuropathy; N13.30 Unspecified hydronephrosis; Z71.89 Other specified counseling | CPT/HCPCS: 99350 ==

== ENCOUNTER 2024-02-05 08:00 | Outpatient (CLI) | payer MEDICARE, OTHER | END 2024-02-05 23:59 | disposition home or self-care (01) | LOC: PC 08:00 | PROVIDERS: ATTEND Nurse Practitioner Adult Health | DX: Z51.5 Encounter for palliative care (principal); C66.2 Malignant neoplasm of left ureter; N18.32 Chronic kidney disease, stage 3b | CPT/HCPCS: 99426; 99427 ==

== ENCOUNTER 2024-02-10 18:37 | Emergency (ER) | payer MEDICARE, OTHER ==
[2024-02-10 18:49] VITALS: BP 109/77; O2SAT 99
[2024-02-10 18:57] LABS: BILIRUBIN,URINE NEGATIVE (NEGATIVE); GLUCOSE, URINE (UA) NEGATIVE (NEGATIVE); KETONES,URINE (UA) NEGATIVE (NEGATIVE); LEUKOCYTE ESTERASE, URINE SMALL (NEGATIVE); NITRITE,URINE NEGATIVE (NEGATIVE); OCCULT BLOOD,URINE LARGE (NEGATIVE); PROTEIN,URINE 100 mg/dL (NEGATIVE); UROBILINOGEN,URINE 0.2 (NORMAL) E.U./dL (NORMAL)
[2024-02-10 18:59] LABS: CLARITY,URINE HAZY (CLEAR)
--- NOTE | 2024-02-10 19:01 | ED Physician Documentation ---
PD HPI MALE - Stated complaint Stated Complaint: - Chief complaint Chief Complaint: UTI - History obtained from History obtained from: Patient - Additional information Additional information: 73-year-old gentleman with urothelial bladder carcinoma with a left stent in place and getting treatment with gemcitabine and radiation. He feels like he has a bladder infection since yesterday with dysuria and frequency as well as a left-sided backache. No fevers. When queried about blood in the urine he says maybe it was just a bit chad but certainly not opaque or any clots. PD PAST MEDICAL HISTORY - Past Medical History Past Medical History: Yes Cardiovascular: Hypertension, High cholesterol, Atrial fibrillation, Murmur, Valve disorder, Other Respiratory: Sleep apnea, Other Neuro: None Endocrine/Autoimmune: Type 2 diabetes, Other GI: GERD, Pancreatitis : Benign prostate hypertrophy HEENT: Chronic vision loss Psych: None Musculoskeletal: None Derm: Other - Past Surgical History Past Surgical History: Yes General: Cholecystectomy, Colonoscopy Ortho: Spine surgery, Other Cardiovascular: Valve replacement HEENT: Tonsil/Adenoidectomy - Present Medications Home Medications: Ambulatory Orders Medication Instructions Recorded Confirmed Metoprolol Tartrate [Lopressor] 25 mg PO BID 03/11/21 02/10/24 Rosuvastatin Calcium [Crestor] 40 mg PO QPM 03/11/21 02/10/24 Famotidine [Pepcid] 20 mg PO BID PRN 08/07/23 02/10/24 Gabapentin [Neurontin] See Rx Instructions .ROUTE .COMPLEX 01/24/24 02/10/24 Mirabegron [Myrbetriq] See Rx Instructions .ROUTE .COMPLEX 01/24/24 01/24/24 Senna [Senokot] See Rx Instructions .ROUTE .COMPLEX 01/24/24 02/10/24 Tamsulosin HCl [Flomax] See Rx Instructions .ROUTE .COMPLEX 01/24/24 02/10/24 fentaNYL [Fentanyl 25mcg patch] See Rx Instructions .ROUTE .COMPLEX 01/24/24 02/10/24 oxyBUTYnin chloride [Oxybutynin See Rx Instructions .ROUTE .COMPLEX 01/24/24 02/10/24 Chloride] oxyCODONE [Roxicodone] See Rx Instructions .ROUTE .COMPLEX 01/24/24 02/10/24 Acetaminophen [Tylenol] 1 tab PO PRN PRN 02/10/24 02/10/24 Ciprofloxacin HCl [Cipro] 500 mg PO BID #20 tablet 02/10/24 LORazepam [Ativan] 1 tab PO PRN PRN 02/10/24 02/10/24 Magnesium Citrate [Citrate of 1 applic PO PRN PRN 02/10/24 02/10/24 Magnesia] Naloxegol Oxalate [Movantik] 1 tab PO PRN PRN 02/10/24 02/10/24 Ondansetron [Ondansetron Odt] 1 tab PO DAILY 02/10/24 02/10/24 bisacodyL [Onelax] 1 applic [place] PRN PRN 02/10/24 02/10/24 - Allergies Allergies/Adverse Reactions: Allergies Allergy/AdvReac Type Severity Reaction Status Date / Time No Known Drug Allergies Allergy Verified 02/10/24 18:39 - Social History Does the pt smoke?: No Smoking Status: Never smoker Does the pt drink ETOH?: No Does the pt have substance abuse?: No - Immunizations Immunizations are current?: Yes Immunizations: TDAP >10years/unknown - POLST Patient has POLST: No PD ED PE NORMAL - Vitals Vital signs reviewed: Yes - General General: Alert and oriented X 3, No acute distress - Abdomen Abdomen: Non tender - Back Back: Other (Very very mild left CVA tenderness) - Neuro Neuro: Alert and oriented X 3 Results - Vitals Vitals: Vital Signs - 24 hr 02/10/24 18:39 Temperature 35.9 C L Heart Rate 85 Respiratory 18 Rate Blood Pressure 109/77 O2 Saturation 99 Oxygen O2 Source Room air - Labs Labs: Laboratory Tests 02/10/24 18:45 Urine Color YELLOW Urine Clarity HAZY Urine pH 6.0 Ur Specific [place] 1.025 Urine Protein 100 H Urine Glucose (UA) NEGATIVE Urine Ketones NEGATIVE Urine Occult Blood LARGE H Urine Nitrite NEGATIVE Urine Bilirubin NEGATIVE Urine Urobilinogen 0.2 (NORMAL) Ur Leukocyte Esterase SMALL H Urine RBC TNTC H Urine WBC 0-3 Ur Squamous Epith Cells NONE SEEN Urine Bacteria None Seen Ur Microscopic Review INDICATED Urine Culture Comments INDICATED PD Medical Decision Making - ED course ED course: 73-year-old gentleman with history of bladder cancer in remission with a left ureteral stent presents with cystitis symptoms. He does have very mild left CVA tenderness so seems reasonable to treat him for pyelonephritis. His urine is actually not too convincing, really more signs of blood than infection, but will treat at this point. I did do a bedside ultrasound and he is not retaining urine. I reviewed prior urine culture with MRSA etc. and seems like Cipro would be a decent choice. Departure - Departure Disposition: 01 Home, Self Care Clinical Impression: Pyelonephritis Condition: Good Record reviewed to determine appropriate education?: Yes Instructions: ED UTI Pyelonephritis Male Prescriptions: Ciprofloxacin HCl [Cipro] 500 mg PO BID #20 tablet Comments: I sent your prescription electronically to [facility] in [place]. We will culture your urine, the results should be done in 48-72 hours. If an antibiotic change is necessary we will call you. Return if worse in the meantime, especially if you develop increasing flank pain, fevers, or cannot keep down the medication.
[2024-02-10 19:04] LABS: BACTERIA,URINE None Seen /HPF (None Seen); RBC,URINE TNTC /HPF (0-5); SQUAMOUS EPITHELIAL CELL,UR NONE SEEN (<= Few); WBC,URINE 0-3 /HPF (0-3)
[2024-02-10] MEDS: CIPROFLOXACIN 250 MG TABLET PO STA (19:21)
== END 2024-02-10 19:26 | disposition home or self-care (01) ==
LOC: ED 18:37
DX: N12 Tubulo-interstitial nephritis, not specified as acute or chronic (principal); C67.9 Malignant neoplasm of bladder, unspecified
CPT/HCPCS: 81001; 87086; 99283; A9270; 81003

== ENCOUNTER 2024-02-22 11:45 | Outpatient (CLI) | payer MEDICARE, OTHER ==
[2024-02-22 11:59] LABS: BASOPHILS % (AUTO) 0.8 %; EOSINOPHILS # (AUTO) 0.4 10^3/uL (0.0-0.7); EOSINOPHILS % (AUTO) 7.2 %; HCT - HEMATOCRIT 39.3 % (42.0-52.0); HGB - HEMOGLOBIN 11.8 g/dL (14.0-18.0); LYMPHOCYTES # (AUTO) 0.8 10^3/uL (1.5-3.5); LYMPHOCYTES % (AUTO) 15.6 %; MEAN CORPUSCULAR HEMOGLOBIN 30.7 pg (27.0-31.0); MEAN CORPUSCULAR VOLUME 102.3 fL (80.0-94.0); MEAN PLATELET VOLUME 9.8 fL (7.4-11.4); MONOCYTES # (AUTO) 0.6 10^3/uL (0.0-1.0); NEUTROPHILS # (AUTO) 3.4 10^3/uL (1.5-6.6); NEUTROPHILS % (AUTO) 65.2 %; PLT - PLATELET COUNT 99 10^3/uL (130-450); RED BLOOD COUNT 3.84 10^6/uL (4.70-6.10); RED CELL DISTRIBUTION WIDTH 14.7 % (12.0-15.0); WHITE BLOOD COUNT 5.3 x10^3/uL (4.8-10.8)
[2024-02-22 12:13] LABS: ALBUMIN 3.5 g/dL (3.2-5.5); ALBUMIN/GLOBULIN RATIO 1.1 (1.0-2.2); BILIRUBIN,TOTAL 0.4 mg/dL (0.2-1.0); CALCIUM 9.7 mg/dL (8.5-10.3); POTASSIUM 4.4 mmol/L (3.5-4.5); TOTAL PROTEIN 6.6 g/dL (6.4-8.9)
[2024-02-22 12:49] LABS: ESTIMATED AVERAGE GLUCOSE 146 mg/dL (70-100); HEMOGLOBIN A1c% 6.7 % (4.27-6.07)
== END 2024-02-22 11:46 | disposition home or self-care (01) ==
LOC: LAB 11:45
PROVIDERS: ATTEND Nurse Practitioner Adult Health
DX: E11.42 Type 2 diabetes mellitus with diabetic polyneuropathy (principal); E11.22 Type 2 diabetes mellitus with diabetic chronic kidney disease; N18.32 Chronic kidney disease, stage 3b; C66.2 Malignant neoplasm of left ureter; R31.9 Hematuria, unspecified
CPT/HCPCS: 36415; 80053; 83036; 85025

== ENCOUNTER 2024-02-26 13:00 | Outpatient (CLI) | payer MEDICARE, OTHER | END 2024-02-26 23:59 | disposition home or self-care (01) | LOC: PC 13:00 | PROVIDERS: ATTEND Nurse Practitioner Adult Health | DX: Z51.5 Encounter for palliative care (principal); C66.2 Malignant neoplasm of left ureter; R32 Unspecified urinary incontinence; R35.0 Frequency of micturition; R35.1 Nocturia; R39.11 Hesitancy of micturition; M62.81 Muscle weakness (generalized); T50.905A Adverse effect of unspecified drugs, medicaments and biological substances, initial encounter; K59.03 Drug induced constipation; F41.9 Anxiety disorder, unspecified; G89.3 Neoplasm related pain (acute) (chronic); E11.42 Type 2 diabetes mellitus with diabetic polyneuropathy; R63.0 Anorexia; M51.37 Other intervertebral disc degeneration, lumbosacral region; E11.22 Type 2 diabetes mellitus with diabetic chronic kidney disease; N13.0 Hydronephrosis with ureteropelvic junction obstruction | CPT/HCPCS: 99350 ==

== ENCOUNTER 2024-03-07 08:00 | Outpatient (CLI) | payer MEDICARE, OTHER | END 2024-03-07 23:59 | disposition home or self-care (01) | LOC: PC 08:00 | PROVIDERS: ATTEND Nurse Practitioner Adult Health | DX: Z51.5 Encounter for palliative care (principal); C66.2 Malignant neoplasm of left ureter; N18.32 Chronic kidney disease, stage 3b | CPT/HCPCS: 99426 ==

== ENCOUNTER 2024-03-10 08:00 | Outpatient (CLI) | payer MEDICARE, OTHER | END 2024-03-10 23:59 | disposition home or self-care (01) | LOC: LAB.N 08:00 | PROVIDERS: ATTEND Physician Assistant Medical | DX: N30.00 Acute cystitis without hematuria (principal) | CPT/HCPCS: 87086 ==

== ENCOUNTER 2024-03-13 08:00 | Outpatient (CLI) | payer MEDICARE, OTHER | END 2024-03-13 08:01 | disposition home or self-care (01) | LOC: LAB 08:00 | PROVIDERS: ATTEND Urology | DX: N30.00 Acute cystitis without hematuria (principal) | CPT/HCPCS: 87086 ==

== ENCOUNTER 2024-03-27 08:00 | Outpatient (CLI) | payer MEDICARE, OTHER | END 2024-03-27 23:59 | disposition home or self-care (01) | LOC: PC 08:00 | PROVIDERS: ATTEND Nurse Practitioner Adult Health | DX: Z51.5 Encounter for palliative care (principal); I50.9 Heart failure, unspecified; N30.00 Acute cystitis without hematuria; C68.0 Malignant neoplasm of urethra; M62.81 Muscle weakness (generalized); N18.32 Chronic kidney disease, stage 3b; F41.9 Anxiety disorder, unspecified; C66.2 Malignant neoplasm of left ureter; R53.83 Other fatigue; E11.22 Type 2 diabetes mellitus with diabetic chronic kidney disease; E11.42 Type 2 diabetes mellitus with diabetic polyneuropathy; Z79.899 Other long term (current) drug therapy | CPT/HCPCS: 99215 ==

== ENCOUNTER 2024-04-14 12:06 | Outpatient (CLI) | payer MEDICARE, OTHER ==
[2024-04-14] MEDS ORDERED: DIATRIZOATE MEGLU/DIATRIZO SOD 30 ML BOTTLE PO ONE (12:29)
--- NOTE | 2024-04-14 14:46 | CT Report ---
PROCEDURE: Chest WO INDICATIONS: URETERAL CA TECHNIQUE: A CT scan of the chest was performed. Intravenous contrast media was not administered. Images were re corded and evaluated at appropriate window settings. Reformats: axial MIP of the chest, coronal and s agittal. For radiation dose reduction, the following was used: automated exposure control, adjustment of mA and/or kV according to patient size. COMPARISON: 01/22/2024, multiple priors FINDINGS: Image quality: Diagnostic Lungs and pleura:No dense consolidation or pleural effusion. Bibasilar scarring/atelectasis. No new o r enlarging pulmonary nodules. Few low suspicion micronodules are again seen. Mediastinum, heart, and esophagus: No hiatal hernia. Coronary calcifications. Aortic valve replacemen t. No pathologic lymph nodes by size criteria. Chest wall and thyroid: Unremarkable thyroid and chest wall Upper abdomen: Separately dictated Bones: Degenerative changes, no acute or suspicious osseous finding. Nonacute appearing right rib fra ctures are seen. IMPRESSION: No active metastatic disease identified in the chest. Abdominal pelvic findings are separately dictat ed. Reviewed by: Kd Arthur MD on 04/14/2024 2:45 PM PDT Approved by: Kd Arthur MD on 04/14/2024 2:45 PM PDT Station ID: [id number]
--- NOTE | 2024-04-14 14:52 | CT Report ---
PROCEDURE: Abdomen/Pelvis WO INDICATIONS: URETERAL CA TECHNIQUE: A CT scan of the abdomen and pelvis was performed without the use of intravenous contrast. Images we re recorded and evaluated at appropriate window settings. Reformats: coronal and sagittal. For radiat ion dose reduction, the following was used: automated exposure control, adjustment of mA and/or kV ac cording to patient size. COMPARISON: 01/22/2024 FINDINGS: Image quality: Diagnostic Lower chest: Unremarkable Liver: Left lobe liver cyst again seen. Solid organs are not well evaluated in the absence of IV cont rast. No contour deforming mass. Gallbladder and biliary system: Absent, nondilated. Duodenal diverticulum is seen adjacent to the amp cayetano Pancreas: No ductal dilation Spleen: Nonenlarged Adrenals: No discrete nodules Kidneys: There are possible cysts in the kidneys, not well evaluated on this noncontrast study, with varying densities. Left ureteral stent is present, appeared to be appropriate position. There is only mild left pelviectasis, which is decreased from prior. Mild surrounding ureteral fat stranding is si milar to prior. Vessels and lymph nodes: No pathologic lymph nodes by size criteria. No abdominal aortic aneurysm. Bowel and peritoneum: No evidence of small bowel obstruction. No pathologic ascites or drainable absc ess. There are colonic diverticula. Appendix is nondilated Body wall: Small fat-containing umbilical hernia Right greater than left fat-containing inguinal hernias. Pelvis: Bladder wall thickening is seen, mild, slightly asymmetric toward the right. Prostate is not well eval on this study Bones: Right iliac fixation hardware. Degenerative changes. IMPRESSION: Limited noncontrast CT. Mild left renal pelviectasis is decreased from prior, with similar degree of periureteral fat strandi ng. A stent appears to be in appropriate position. Mildly asymmetric bladder wall thickening, consider cystoscopy correlation. Bladder is not well evalu ated on CT. Otherwise, no active metastatic disease identified. Reviewed by: Kd Arthur MD on 04/14/2024 2:51 PM PDT Approved by: Kd Arthur MD on 04/14/2024 2:51 PM PDT Station ID: [id number]
== END 2024-04-14 12:07 | disposition home or self-care (01) ==
LOC: DI 12:06
PROVIDERS: ATTEND Radiology Radiation Oncology
DX: C66.2 Malignant neoplasm of left ureter (principal); N28.89 Other specified disorders of kidney and ureter

== ENCOUNTER 2024-04-24 10:41 | Outpatient (CLI) | payer MEDICARE, OTHER ==
[2024-04-24 10:57] LABS: BASOPHILS % (AUTO) 0.5 %; EOSINOPHILS # (AUTO) 0.1 10^3/uL (0.0-0.7); EOSINOPHILS % (AUTO) 2.5 %; HCT - HEMATOCRIT 42.1 % (42.0-52.0); HGB - HEMOGLOBIN 12.7 g/dL (14.0-18.0); LYMPHOCYTES # (AUTO) 0.6 10^3/uL (1.5-3.5); LYMPHOCYTES % (AUTO) 10.7 %; MEAN CORPUSCULAR HEMOGLOBIN 30.1 pg (27.0-31.0); MEAN CORPUSCULAR HGB CONC 30.2 g/dL (32.0-36.0); MEAN CORPUSCULAR VOLUME 99.8 fL (80.0-94.0); MEAN PLATELET VOLUME 10.5 fL (7.4-11.4); MONOCYTES # (AUTO) 0.5 10^3/uL (0.0-1.0); NEUTROPHILS # (AUTO) 4.4 10^3/uL (1.5-6.6); NEUTROPHILS % (AUTO) 77.3 %; PLT - PLATELET COUNT 100 10^3/uL (130-450); RED BLOOD COUNT 4.22 10^6/uL (4.70-6.10); RED CELL DISTRIBUTION WIDTH 14.6 % (12.0-15.0); WHITE BLOOD COUNT 5.7 x10^3/uL (4.8-10.8)
[2024-04-24 11:00] LABS: BILIRUBIN,URINE NEGATIVE (NEGATIVE); GLUCOSE, URINE (UA) NEGATIVE (NEGATIVE); KETONES,URINE (UA) NEGATIVE (NEGATIVE); LEUKOCYTE ESTERASE, URINE SMALL (NEGATIVE); NITRITE,URINE NEGATIVE (NEGATIVE); OCCULT BLOOD,URINE LARGE (NEGATIVE); PROTEIN,URINE 30 mg/dL (NEGATIVE); UROBILINOGEN,URINE 0.2 (NORMAL) E.U./dL (NORMAL)
[2024-04-24 11:15] LABS: CLARITY,URINE CLEAR (CLEAR)
[2024-04-24 11:16] LABS: ALBUMIN 3.9 g/dL (3.2-5.5); ALBUMIN/GLOBULIN RATIO 1.3 (1.0-2.2); BILIRUBIN,TOTAL 0.5 mg/dL (0.2-1.0); CALCIUM 9.6 mg/dL (8.5-10.3); CREATININE 2.1 mg/dL (0.6-1.3); POTASSIUM 4.6 mmol/L (3.5-4.5); TOTAL PROTEIN 6.8 g/dL (6.4-8.9)
[2024-04-24 11:26] LABS: BACTERIA,URINE Few /HPF (None Seen); SQUAMOUS EPITHELIAL CELL,UR NONE SEEN (<= Few)
== END 2024-04-24 10:42 | disposition home or self-care (01) ==
LOC: LAB 10:41
PROVIDERS: ATTEND Radiology Radiation Oncology
DX: C66.2 Malignant neoplasm of left ureter (principal)
CPT/HCPCS: 36415; 80053; 81001; 85025; 87086

== ENCOUNTER 2024-05-07 08:00 | Outpatient (CLI) | payer MEDICARE, OTHER | END 2024-05-07 23:59 | disposition home or self-care (01) | LOC: PC 08:00 | PROVIDERS: ATTEND Nurse Practitioner Adult Health | DX: Z51.5 Encounter for palliative care (principal); C66.2 Malignant neoplasm of left ureter; N18.32 Chronic kidney disease, stage 3b | CPT/HCPCS: 99426 ==

== ENCOUNTER 2024-05-22 09:50 | Outpatient (CLI) | payer MEDICARE, OTHER ==
[2024-05-22 10:06] LABS: BASOPHILS % (AUTO) 0.4 %; EOSINOPHILS # (AUTO) 0.2 10^3/uL (0.0-0.7); EOSINOPHILS % (AUTO) 3.1 %; HCT - HEMATOCRIT 41.9 % (42.0-52.0); HGB - HEMOGLOBIN 13.1 g/dL (14.0-18.0); LYMPHOCYTES # (AUTO) 0.8 10^3/uL (1.5-3.5); LYMPHOCYTES % (AUTO) 14.9 %; MEAN CORPUSCULAR HEMOGLOBIN 30.5 pg (27.0-31.0); MEAN CORPUSCULAR HGB CONC 31.3 g/dL (32.0-36.0); MEAN CORPUSCULAR VOLUME 97.4 fL (80.0-94.0); MEAN PLATELET VOLUME 10.4 fL (7.4-11.4); MONOCYTES # (AUTO) 0.6 10^3/uL (0.0-1.0); MONOCYTES % (AUTO) 12.2 %; NEUTROPHILS # (AUTO) 3.6 10^3/uL (1.5-6.6); NEUTROPHILS % (AUTO) 69.2 %; PLT - PLATELET COUNT 98 10^3/uL (130-450); RED CELL DISTRIBUTION WIDTH 15.3 % (12.0-15.0); WHITE BLOOD COUNT 5.2 x10^3/uL (4.8-10.8)
[2024-05-22 10:18] LABS: ALBUMIN 3.8 g/dL (3.2-5.5); ALBUMIN/GLOBULIN RATIO 1.4 (1.0-2.2); BILIRUBIN,TOTAL 0.6 mg/dL (0.2-1.0); CALCIUM 9.4 mg/dL (8.5-10.3); CREATININE 2.2 mg/dL (0.6-1.3); POTASSIUM 4.2 mmol/L (3.5-4.5); TOTAL PROTEIN 6.6 g/dL (6.4-8.9)
== END 2024-05-22 09:51 | disposition home or self-care (01) ==
LOC: LAB 09:50
PROVIDERS: ATTEND Nurse Practitioner Adult Health
DX: N18.32 Chronic kidney disease, stage 3b (principal); R53.83 Other fatigue
CPT/HCPCS: 36415; 80053; 85025

== ENCOUNTER 2024-06-24 11:36 | Outpatient (CLI) | payer MEDICARE, OTHER ==
[2024-06-24 11:57] LABS: BILIRUBIN,URINE NEGATIVE (NEGATIVE); GLUCOSE, URINE (UA) NEGATIVE (NEGATIVE); KETONES,URINE (UA) NEGATIVE (NEGATIVE); LEUKOCYTE ESTERASE, URINE NEGATIVE (NEGATIVE); NITRITE,URINE NEGATIVE (NEGATIVE); OCCULT BLOOD,URINE LARGE (NEGATIVE); PH,URINE 5.5 PH (5.0-7.5); PROTEIN,URINE TRACE mg/dL (NEGATIVE); UROBILINOGEN,URINE 0.2 (NORMAL) E.U./dL (NORMAL)
[2024-06-24 12:04] LABS: BACTERIA,URINE Few /HPF (None Seen); CLARITY,URINE CLEAR (CLEAR); MUCUS,URINE Few Strands; SQUAMOUS EPITHELIAL CELL,UR RARE Squamous (<= Few)
== END 2024-06-24 11:37 | disposition home or self-care (01) ==
LOC: LAB 11:36
PROVIDERS: ATTEND Urology
DX: C66.2 Malignant neoplasm of left ureter (principal)
CPT/HCPCS: 81001; 87086